=== PATIENT | male | born 1940 | race Caucasian/White ===

== ENCOUNTER 2017-10-26 11:15 | Emergency (ER) | payer OTHER ==
[~2017-10-26] VITALS: Ht 172.7 cm; Wt 78.9 kg
[2017-10-26 11:19] VITALS: Ht 172.7 cm; Wt 78.9 kg
--- NOTE | 2017-10-26 12:17 | DIAGNOSTIC IMAGING REPORT ---
L SHOULDER MIN 2 VIEWS ROUTINE CLINICAL HISTORY: L biceps tendon rupture pain COMPARISON: None. DISCUSSION: The bones and joint spaces appear intact. There is no evidence of fracture, dislocation or bony disease. Minimal degenerative change of the acromioclavicular joint. No abnormal soft tissue calcifications. IMPRESSION: Minimal degenerative change. No acute process. The above report was generated using voice recognition software. It may contain grammatical, syntax or spelling errors. Electronically signed by: Tam Esposito M.D. 10/26/2017 12:16 PM Dictated Date/Time: 10/26/2017 12:15 PM
[2017-10-26 12:53] LABS: PROTHROMBIN TIME (PATIENT) 39.2 SECONDS (9.0-12.0)
[2017-10-26 12:55] LABS: INR 3.8 (0.9-1.1)
[2017-10-26] MEDS ORDERED: PRAV40TA2 PO (13:19)
[2017-10-26] MEDS ORDERED: DIGO0.2519 PO (13:19)
[2017-10-26] MEDS ORDERED: WARF1TAB PO (13:19)
[2017-10-26] MEDS ORDERED: MULT-190 PO (13:19)
[2017-10-26] MEDS ORDERED: WARF7.5T PO (13:19)
[2017-10-26] MEDS ORDERED: LISI10TA PO (13:19)
--- NOTE | 2017-10-26 13:58 | EMERGENCY ROOM VISIT NOTE ---
ED Visit Note First contact with patient: 11:25 Patient was seen by our PA/[employer] DISPOSAL MANAGER. I was involved in the patient's care and did evaluate the patient myself. I was involved in the care throughout the ER stay. The patient has a biceps tendon rupture clinically. He has bruising because of his Coumadin use. He will be seeing orthopedics. We will call to try and make arrangements for him.
[2017-10-26 14:04] VITALS: BP 114/73; PULSE 78; TEMP 36.6; O2SAT 96
--- NOTE | 2017-10-26 15:37 | EMERGENCY ROOM VISIT NOTE ---
History First contact with patient: 11:25 Chief Complaint: ARM PAIN Stated Complaint: BRUISING ON LEFT ARM History of Present Illness The patient is a 76 year old male who presents to the Emergency Room with complaints of bruising and swelling of his left upper arm. The patient reports that he initially injured the arm 8 days ago while attempting to pull up a garage door when he felt something pull in the arm. Shortly thereafter, he reported swelling of the arm. 2 days ago, he was trying to pull an oxygen tank across the back of a car seat and felt something pop in the arm. He then started to notice bruising that has progressively worsened. The patient is on Coumadin for history of artificial heart valve. His last INR check was over one month ago. He does take high doses of Coumadin. The patient denies any prior history of left rotator cuff injuries or biceps tendon injuries. He rates his discomfort a 6 out of 10. The patient is [id number]. Review of Systems HEENT: Denies dizziness, visual problems, hearing loss, tinnitus. Denies difficulty swallowing or oral lesions. PULMONARY: Denies cough, shortness of breath, sputum production or hemoptysis. CARDIOVASCULAR: Denies chest pain, palpitations, dyspnea on exertion, orthopnea or peripheral edema. GASTROINTESTINAL: Denies diarrhea, constipation, nausea, vomiting, or abdominal pain. GENITOURINARY: Denies dysuria, frequency, urgency or nocturia. NEUROLOGIC: Denies history of epilepsy, CVA, TIA or chronic headaches. MUSCULOSKELETAL: Denies history of joint tenderness/swelling. SKIN: Denies rashes or lesions. PSYCHIATRIC: Denies history of depression or mental illness. ENDOCRINE: Denies history of diabetes or thyroid disorders. Past Medical/Surgical History Medical Problems: (1) H/O heart valve stenosis Family History Patient reports no known family medical history. Social History Smoking Status: Never Smoker Marital Status: Housing Status: lives with significant other Occupation Status: retired Current/Historical Medications Scheduled Digoxin (Digox), 250 MCG PO DAILY Lisinopril (Prinivil), 10 MG PO DAILY Ocuvite Preservision (Ocuvite Preservision), 1 TAB PO DAILY Pravastatin Sodium (Pravastatin Sodium), 40 MG PO DAILY Warfarin Sodium (Coumadin), 0.5 MG PO DAILY Warfarin Sodium (Coumadin), 7.5 MG PO DAILY Physical Exam Vital Signs Date Time Temp Pulse Resp B/P (MAP) Pulse Ox O2 Delivery O2 Flow Rate FiO2 10/26/17 14:04 36.6 78 18 114/73 96 10/26/17 13:50 78 18 114/73 96 Room Air 10/26/17 11:51 36.6 98 18 121/72 97 Room Air 10/26/17 11:19 36.6 101 18 121/75 97 Room Air Physical Exam CONSTITUTIONAL: Healthy and well nourished. Alert and oriented X 3 with positive affect. Patient does not appear in any acute distress. HEENT: Normocephalic, atraumatic. Pupils equal, round and reactive. NECK: Full active range of motion without discomfort. MUSCULOSKELETAL: Examination shows notable ecchymosis and edema of the left upper arm. The patient has a visible and palpable bulge of the biceps muscle. He also has mild tenderness through the bicipital groove. He otherwise has full passive range of motion without discomfort, and reasonably full active range of motion without discomfort. No focal tenderness through the triceps musculature. No palpable softness or other abnormalities within the antecubital space. Pronation and supination does not cause any discomfort. Distal pulses are intact. INTEGUMENTARY: No rash or other significant dermatologic conditions noted. NEUROLOGIC: Left deltoid sensation, and left hand and fingers are sensory intact. Medical Decision & Procedures ER Provider Diagnostic Interpretation: My interpretation of left shoulder x-rays does not show any avulsion fractures or dislocation. Radiologist report is as follows: L SHOULDER MIN 2 VIEWS ROUTINE CLINICAL HISTORY: L biceps tendon rupture pain COMPARISON: None. DISCUSSION: The bones and joint spaces appear intact. There is no evidence of fracture, dislocation or bony disease. Minimal degenerative change of the acromioclavicular joint. No abnormal soft tissue calcifications. IMPRESSION: Minimal degenerative change. No acute process. Laboratory Results Test 10/26/17 12:20 Prothrombin Time 39.2 SECONDS (9.0-12.0) Prothromb Time International Ratio 3.8 (0.9-1.1) ED Course Patient history and physical exam were performed. Nurse's notes were reviewed. Vital signs were reviewed and were normal. The patient refused any analgesics while in the emergency department. X-rays of the left shoulder were normal. The patient and were advised that clinical exam is most consistent with a long head biceps tendon rupture. I did suggest that the patient follow-up with [facility] for further reevaluation. The patient also has not had his INR checked within the past month. His INR today was 3.8. I did encourage the patient to call his Coumadin clinic, and hold his Coumadin dosing for tonight. The patient and had a lot of questions regarding the need to see an orthopedic surgeon. I did explain that often times management is nonoperative, however explain that although he does have one intact biceps tendon, certainly he would need to be careful in the future of any further injury. I also extensively explained why the patient had bruising, swelling and discomfort because of the bleeding in the upper arm. The patient was also seen and examined by Dr. Talbot, ED attending physician, who also suggested orthopedic follow-up. The wanted us to call to see if the patient could be seen today. Although unlikely, I did ask our Rn Team Leader to call the office for an appointment. They are unable to see him today, but can be seen tomorrow at 8:[address] Moran. The patient was encouraged to alternate ice and heat to the arm, and take Tylenol if needed for additional pain relief. Both the patient and were happy with plan of care, and the patient denied any significant discomfort at the time of discharge. He refused a sling. Medical Decision Medication Reconcilliation Current Medication List: was personally reviewed by me Blood Pressure Screening Patient's blood pressure: Normal blood pressure Impression Primary Impression: Rupture of left long head biceps tendon Additional Impression: Supratherapeutic INR Departure Information Dispostion Home / Self-Care Referrals Giacomo Moran M.D. Forms HOME CARE DOCUMENTATION FORM, IMPORTANT VISIT INFORMATION Patient Instructions My [facility] Additional Instructions Follow-up with [facility] for further reevaluation and management. You have an appointment scheduled for tomorrow morning at 8:[address] Moran. Alternate ice and heat to the arm. Avoid any heavy lifting. Tylenol 1000 mg every 6-8 hours as needed for pain. Your INR was elevated today at 3.8. Suggest holding your Coumadin for tonight. Call your Coumadin clinic to see if they want you to hold your Coumadin for an additional night, or for other change in dosing. Problem Qualifiers Primary Impression: Rupture of left long head biceps tendon Encounter type: initial encounter Qualified Codes: S46.112A - Strain of muscle, fascia and tendon of long head of biceps, left arm, initial encounter
== END 2017-10-26 14:05 | disposition home or self-care (01) ==
LOC: C.EDB 11:17 → C.EDD 14:05
DX: S46.112A Strain of muscle, fascia and tendon of long head of biceps, left arm, initial encounter (principal); X50.9XXA Other and unspecified overexertion or strenuous movements or postures, initial encounter; R79.1 Abnormal coagulation profile; Z95.2 Presence of prosthetic heart valve; Z79.01 Long term (current) use of anticoagulants

== ENCOUNTER 2023-07-03 20:46 | Inpatient (IN) ==
[2023-07-03 21:47] LABS: Hematocrit (blood only) 39.4 % (42.0-52.0); Hemoglobin 13.3 g/dl (14.0-18.0); Mean Corpuscular Hemoglobin 31.4 pg (25.0-34.0); Mean Corpuscular Hgb Conc 33.8 g/dL (32.0-36.0); Mean Corpuscular Volume 92.9 fL (80.0-100.0); Mean Platelet Volume 12.5 fL (9.4-12.4); Platelet Count 125 K/uL (130-400); RDW Coefficient of Variation 14.3 % (11.5-14.5); RDW Standard Deviation 48.8 fL (36.4-46.3); Red Blood Count 4.24 M/uL (4.70-6.10); White Blood Count 21.78 K/ul (4.8-10.8)
[2023-07-03] MEDS ORDERED: SODIUM CHLORIDE 0.9% 2,000 ML IV ONE (22:02)
[2023-07-03] MEDS ORDERED: PIPERACILLIN/TAZOBACTAM 4.5 GM/120 ML BAG IV ONE (22:09)
[2023-07-03 22:11] LABS: Alanine Aminotransferase 25 U/L (7-52); Albumin Globulin Ratio 1.2 (0.9-2); Albumin Level 3.7 gm/dl (3.4-5.0); Alkaline Phosphatase 86 U/L (34-104); Anion Gap 10 (3-11); Aspartate Aminotransferase 28 U/L (13-39); BUN Creatinine Ratio 13.5 (10-20); Blood Urea Nitrogen 25 mg/dl (6-23); Calcium 8.2 mg/dl (8.6-10.3); Carbon Dioxide 21 mmol/L (21-32); Chloride 102 mmol/L (98-107); Est GFR (African American) 37.9 ml/min; Est GFR (Non-African American) 32.7 ml/min; Globulin 3.1 gm/dl (2.5-4.0); Glucose 120 mg/dl (70-99(Fasting)); Potassium 4.2 mmol/L (3.5-5.1); Sodium 133 mmol/L (136-145); Total Protein 6.8 gm/dl (6.0-8.3)
[2023-07-03 22:20] LABS: INR 1.9 (0.9-1.1); Prothrombin Time 19.6 Seconds (9.0-12.0)
[2023-07-03 22:21] LABS: Appearance Urine Turbid (Clear); Bacteria Urine Automated Negative (Negative); Bilirubin Urine Negative (Negative); Blood Urine 3+ (Negative); Color Urine Dark Yellow; Epithelial Cell Urine Auto 20-30 /lpf (0-5); Glucose Urine UA Negative (Negative); Ketones Urine Negative (Negative); Leukocyte Esterase Urine 3+ (Negative); Nitrite Urine Positive (Negative); Protein Urine 3+ (Negative); Specific Gravity Urine 1.014 (1.000-1.030); Urobilinogen Urine Negative (Negative); WBC Urine Automated >30 /hpf (0-5)
[2023-07-03 22:22] LABS: Basophils # (auto) 0.04 K/uL (0.00-0.20); Basophils % (auto) 0.2 %; Eosinophils # (auto) 0.04 K/uL (0.00-0.50); Eosinophils % (auto) 0.2 %; Immature Granulocytes # (auto) 0.17 K/uL (0.01-0.20); Immature Granulocytes % (auto) 0.8 %; Lymphocytes # (auto) 0.83 K/uL (1.20-3.40); Lymphocytes % (auto) 3.8 %; Monocytes # (auto) 1.04 K/uL (0.11-0.59); Monocytes % (auto) 4.8 %; Neutrophils # (auto) 19.66 K/uL (1.40-6.50); Neutrophils % (auto) 90.2 %
[2023-07-03] MEDS ORDERED: LACTATED RINGER'S 1,000 ML IV ONE (23:36)
--- NOTE | 2023-07-03 23:36 | Emergency Department Note ---
Impression & Plan Acute UTI, Sepsis, THIAGO (acute kidney injury), Elevated troponin ED Provider Note Provider: Hamilton Alonso MD DATE OF SERVICE: 07/03/2023 CHIEF COMPLAINT: Urinary discomfort HISTORY OF PRESENT ILLNESS: Patient is a 82-year-old gentleman history of CKD, GERD, CVA resulting with some hemiparesis, and aortic mechanical valve replacement on Coumadin presenting here via ambulance from his home today. Patient states he is significant pressure in his lower abdomen and feels like he cannot pee. Reports a history of urine infection. Denies any new neurological deficit with chronic weakness of the left arm and leg. Patient is feeling improved after Cox placement here however and denies other significant abdominal pain or flank pain is new. Denies chest pain. Denies significant cough or cold symptoms. No falls reported. Later called to to get additional history. Patient evidently with some dark urine starting yesterday no reported fever or chills at home. Decreased urine output and has not eaten as much today is normal. Patient's difficulty transporting him to get his limitations of mobility from his prior stroke and requested antibiotic be prescribed. He took 1 tablet of this this evening but given increased lower abdominal pain that began she sent here for ev aluation. Did have some diarrhea earlier. PAST MEDICAL HISTORY: As noted above MEDICATIONS: Reviewed home medications includes warfarin digoxin. Did not have his evening warfarin tonight. SOCIAL HISTORY: Lives at home with and white syriac cat PHYSICAL EXAM: GENERAL: alert and oriented in no acute distress on stretcher, hard of hearing, not the best historian Head: normocephalic and atraumatic EYES: No injection, discharge or icterus. NECK: Trachea midline. Supple. ENT: Mucous membranes pink and moist. Pharynx without erythema or exudate. LUNGS: Airway patent. No retractions. Breath sounds clear with good air entry bilaterally. HEART: Regular rate and rhythm. No chest wall tenderness ABDOMEN: Soft and non-tender, without guarding or rebound. SKIN: Acyanotic, warm, dry, without rashes EXTREMITIES: Without swelling, tenderness or deformity NEUROLOGICAL: No focal deficits. No aphasia. No facial droop or slurred speech. Normal strength and tone in the extremities. Sensation to gross touch normal. Ambulatory. EK bpm sinus tachycardia. No PVC or PAC. No acute ST segment elevation with some anterior T wave flattening noted. Slight depression in aVL. QTc 453. CONTINUOUS CARDIAC MONITORING: was ordered and showed a heart rate of 100s-120s bpm in sinus tachycardia Patient's laboratory studies and imaging reviewed. Differential includes Infection, dehydration, metabolic abnormality, hypo/hyperglycemia, electrolyte disturbance, anemia, hypoxia, cardiac sources, intracerebral event, toxicologic, neurologic, as well as other pathologies. IMPRESSION/MEDICAL DECISION MAKING: Patient with lower abdominal discomfort. Improved after Cox placement but not a significant amount of urine drained and does not seem like an acute retention. Additional history from states she did give him nasal and had 1 dose of Augmentin earlier. No falls or trauma reported. Denies any diarrhea here other abdominal pain after Cox placement. Darkened urine and urinalysis appears grossly positive. Will cover with Zosyn. IV fluid hydration 3 L ordered for resuscitation. Is somewhat tachycardic. INR 1.9. Did not have his evening dose of warfarin. CT abdomen pelvis completed given his discomfort earlier and significant cytosis concerning for sepsis to exclude abscess or evidence of kidney stone. Not noted per reports. Lactate only mildly low at 2.1. Slight THIAGO with creatinine 1.85. Likely little bit related to the sepsis picture. Blood cultures are pending and were completed before the administration of broad-spectrum Zosyn. Will require further care here at the hospital and was updated via phone. Patient in agreement. Resting comfortably at this time. Reassessed at midnight with improvement of his heart rate to around 100, good capillary perfusion, no significant breathing, and a benign abdomen with still some darkish yellow urine draining in the Cox. Mild troponin elevation. Will trend. Hospitalist contacted DIAGNOSIS: Acute UTI, sepsis, THIAGO, elevated troponin DISPOSITION: Hospitalist will evaluate Patient was agreeable with this plan. Critical Care I have personally spent 35 minutes of critical care time in the direct management of this patient. This includes bedside care, interpretation of diagnostic studies, and testing, discussion with consultants, patient, and family member (), and other required patient management activities. These 35 minutes is in excess of all separately billable procedures. Past Med/Surg History Medical History Benign prostatic hyperplasia with urinary obstruction Chronic kidney disease, stage 3 (moderate) GERD (gastroesophageal reflux disease) H/O: CVA (cerebrovascular accident) (01/2019) History of subarachnoid hemorrhage (01/2019) Hyperlipidemia Hypertension Left hemiparesis RLS (restless legs syndrome) Rupture of left long head biceps tendon Surgical History H/O mechanical aortic valve replacement (1984) S/P tonsillectomy Family History Brother Myocardial infarction Denies family history of Ovarian cancer Prostate cancer Breast cancer Colorectal cancer Social History Smoking Status: Former smoker Tobacco Type: Cigarettes Age Quit Using Tobacco: 30; Do You Dip or Chew Tobacco: No; Hx Alcohol Use: No Hx Substance Use: No Preferred Language: Nepali Visual Impairment: No Limitations Hearing Ability: Use of Hearing Aid Beliefs That Will Affect Care: None marital status: Current Living Situation: Spouse current occupational status: retired Feels Safe at Home: Yes Diet: regular Diet Comment: regular caffeine: Yes during the past year weight has: remained stable Dental Care, Regularly: No Physical Activity Frequency: Other Physical Activity Frequency Comment: PHYSICAL THERAPY DUE TO STROKE Seatbelt Use: always Sunscreen Use: Yes Allergies Allergies Allergy/AdvReac Type Severity Reaction Status Date / Time No Known Allergies Allergy Unverified 06/21/23 12:34 Home Meds Home Medications Medication Instructions Recorded Confirmed vit C 250 mg-vit E 90 mg-zinc 40 1 tab PO BID 02/07/19 06/21/23 mg-copper 1 [id number] capsule (PreserVision AREDS-2) Previous Rx's Medication Instructions Recorded rosuvastatin 40 mg tablet 40 mg PO DAILY #90 tabs 06/11/22 docusate sodium 100 mg capsule 100 mg PO BID #180 caps 08/20/22 folic acid 1 mg tablet 1 mg PO DAILY #90 tabs 02/15/23 warfarin 5 mg tablet 5 mg PO DAILY #90 tabs 03/09/23 digoxin 125 mcg (0.125 mg) tablet 125 mcg PO DAILY #90 tabs 06/07/23 tamsulosin 0.4 mg capsule 0.4 mg PO .QHS #90 caps 06/22/23 lisinopril 2.5 mg tablet 2.5 mg PO DAILY #90 tabs 06/29/23 amoxicillin 875 mg-potassium 1 tab PO BID #8 tabs 07/03/23 clavulanate 125 mg tablet Results & Data (ED) Vital Signs Vital Signs - 24 hr 07/03/23 20:50 07/03/23 22:15 07/03/23 22:54 Temperature 38 C H Temperature Source Oral Pulse Rate 117 H 107 H Pulse Rate [Apical] 103 H Pulse Rate from SpO2 Sensor Pulse Rhythm [Apical] Regular Pulse Strength [Apical] Normal Respiratory Rate 16 16 Respiratory Effort / Characteristics Non-Labored Spontaneous Non-Labored Spontaneous Respiratory Depth Normal Normal Respiratory Pattern Regular Blood Pressure 173/72 H Blood Pressure [Right Arm] 115/64 Blood Pressure Mean 105 Blood Pressure Mean [Right Arm] 81 Pulse Oximetry 95 98 Oxygen Delivery Method Room Air Room Air Sepsis Recent Fever Within 48 Hours Yes Sepsis New/Unexplained Change in Mental Status No Sepsis Action Taken by Nursing No Action Required 07/03/23 22:12 07/03/23 22:20 07/03/23 22:49 Temperature Temperature Source Pulse Rate 109 H 112 H 108 H Pulse Rate [Apical] Pulse Rate from SpO2 Sensor 109 H 112 H 107 H Pulse Rhythm [Apical] Pulse Strength [Apical] Respiratory Rate 23 26 H 24 Respiratory Effort / Characteristics Respiratory Depth Respiratory Pattern Blood Pressure Blood Pressure [Right Arm] Blood Pressure Mean Blood Pressure Mean [Right Arm] Pulse Oximetry 95 95 93 Oxygen Delivery Method Sepsis Recent Fever Within 48 Hours Sepsis New/Unexplained Change in Mental Status Sepsis Action Taken by Nursing 07/03/23 22:50 07/03/23 22:51 07/03/23 22:51 Temperature Temperature Source Pulse Rate 114 H 115 H Pulse Rate [Apical] Pulse Rate from SpO2 Sensor 112 H 113 H Pulse Rhythm [Apical] Pulse Strength [Apical] Respiratory Rate 22 28 H Respiratory Effort / Characteristics Respiratory Depth Respiratory Pattern Blood Pressure 105/83 Blood Pressure [Right Arm] Blood Pressure Mean 87 Blood Pressure Mean [Right Arm] Pulse Oximetry 85 L 95 Oxygen Delivery Method Sepsis Recent Fever Within 48 Hours Sepsis New/Unexplained Change in Mental Status Sepsis Action Taken by Nursing 07/03/23 23:00 07/03/23 23:00 07/03/23 23:10 Temperature Temperature Source Pulse Rate 104 H 108 H Pulse Rate [Apical] Pulse Rate from SpO2 Sensor 104 H 101 H Pulse Rhythm [Apical] Pulse Strength [Apical] Respiratory Rate 34 H 97 H Respiratory Effort / Characteristics Respiratory Depth Respiratory Pattern Blood Pressure 132/71 Blood Pressure [Right Arm] Blood Pressure Mean 97 Blood Pressure Mean [Right Arm] Pulse Oximetry 95 84 L Oxygen Delivery Method Sepsis Recent Fever Within 48 Hours Sepsis New/Unexplained Change in Mental Status Sepsis Action Taken by Nursing 07/03/23 23:20 07/03/23 23:30 07/03/23 23:30 Temperature Temperature Source Pulse Rate 105 H 102 H Pulse Rate [Apical] Pulse Rate from SpO2 Sensor 105 H 102 H Pulse Rhythm [Apical] Pulse Strength [Apical] Respiratory Rate 25 H 30 H Respiratory Effort / Characteristics Respiratory Depth Respiratory Pattern Blood Pressure 115/64 Blood Pressure [Right Arm] Blood Pressure Mean 89 Blood Pressure Mean [Right Arm] Pulse Oximetry 96 94 Oxygen Delivery Method Sepsis Recent Fever Within 48 Hours Sepsis New/Unexplained Change in Mental Status Sepsis Action Taken by Nursing 07/03/23 23:40 07/03/23 23:50 07/04/23 00:00 Temperature Temperature Source Pulse Rate 104 H 101 H Pulse Rate [Apical] Pulse Rate from SpO2 Sensor 104 H 102 H Pulse Rhythm [Apical] Pulse Strength [Apical] Respiratory Rate 33 H 31 H Respiratory Effort / Characteristics Respiratory Depth Respiratory Pattern Blood Pressure 106/63 Blood Pressure [Right Arm] Blood Pressure Mean 75 Blood Pressure Mean [Right Arm] Pulse Oximetry 95 94 Oxygen Delivery Method Sepsis Recent Fever Within 48 Hours Sepsis New/Unexplained Change in Mental Status Sepsis Action Taken by Nursing 07/04/23 00:00 07/04/23 00:10 07/04/23 00:20 Temperature Temperature Source Pulse Rate 101 H 104 H 102 H Pulse Rate [Apical] Pulse Rate from SpO2 Sensor 99 H 104 H 101 H Pulse Rhythm [Apical] Pulse Strength [Apical] Respiratory Rate 30 H 30 H 31 H Respiratory Effort / Characteristics Respiratory Depth Respiratory Pattern Blood Pressure Blood Pressure [Right Arm] Blood Pressure Mean Blood Pressure Mean [Right Arm] Pulse Oximetry 97 94 96 Oxygen Delivery Method Sepsis Recent Fever Within 48 Hours Sepsis New/Unexplained Change in Mental Status Sepsis Action Taken by Nursing 07/04/23 00:30 07/04/23 00:30 07/04/23 00:40 Temperature Temperature Source Pulse Rate 101 H 102 H Pulse Rate [Apical] Pulse Rate from SpO2 Sensor 101 H 101 H Pulse Rhythm [Apical] Pulse Strength [Apical] Respiratory Rate 33 H 28 H Respiratory Effort / Characteristics Respiratory Depth Respiratory Pattern Blood Pressure 123/71 Blood Pressure [Right Arm] Blood Pressure Mean 102 Blood Pressure Mean [Right Arm] Pulse Oximetry 95 97 Oxygen Delivery Method Sepsis Recent Fever Within 48 Hours Sepsis New/Unexplained Change in Mental Status Sepsis Action Taken by Nursing 07/04/23 00:50 07/04/23 01:00 07/04/23 01:00 Temperature Temperature Source Pulse Rate 102 H 105 H Pulse Rate [Apical] Pulse Rate from SpO2 Sensor 103 H 105 H Pulse Rhythm [Apical] Pulse Strength [Apical] Respiratory Rate 32 H 22 Respiratory Effort / Characteristics Respiratory Depth Respiratory Pattern Blood Pressure 110/89 Blood Pressure [Right Arm] Blood Pressure Mean 101 Blood Pressure Mean [Right Arm] Pulse Oximetry 97 94 Oxygen Delivery Method Sepsis Recent Fever Within 48 Hours Sepsis New/Unexplained Change in Mental Status Sepsis Action Taken by Nursing 07/04/23 01:10 07/04/23 01:14 07/04/23 01:14 Temperature Temperature Source Pulse Rate 106 H 114 H Pulse Rate [Apical] Pulse Rate from SpO2 Sensor 105 H 114 H Pulse Rhythm [Apical] Pulse Strength [Apical] Respiratory Rate 29 H 24 Respiratory Effort / Characteristics Respiratory Depth Respiratory Pattern Blood Pressure 135/108 H Blood Pressure [Right Arm] Blood Pressure Mean 114 Blood Pressure Mean [Right Arm] Pulse Oximetry 96 97 Oxygen Delivery Method Sepsis Recent Fever Within 48 Hours Sepsis New/Unexplained Change in Mental Status Sepsis Action Taken by Nursing Laboratory Data 07/03/23 21:20 07/03/23 21:20 Lab Results 07/03/23 07/03/23 07/03/23 Range/Units 21:20 21:20 21:20 WBC 21.78 H (4.8-10.8) K/ul RBC 4.24 L (4.70-6.10) M/uL Hgb 13.3 L (14.0-18.0) g/dl Hct 39.4 L (42.0-52.0) % MCV 92.9 (80.0-100.0) fL MCH 31.4 (25.0-34.0) pg MCHC 33.8 (32.0-36.0) g/dL RDW Std Deviation 48.8 H (36.4-46.3) fL RDW Coeff of Ayse 14.3 (11.5-14.5) % Plt Count 125 L (130-400) K/uL MPV 12.5 H (9.4-12.4) fL Immature Gran % (Auto) 0.8 % Neut % (Auto) 90.2 % Lymph % (Auto) 3.8 % [place] % (Auto) 4.8 % Eos % (Auto) 0.2 % Baso % (Auto) 0.2 % Neut # (Auto) 19.66 H (1.40-6.50) K/uL Lymph # (Auto) 0.83 L (1.20-3.40) K/uL [place] # (Auto) 1.04 H (0.11-0.59) K/uL Eos # (Auto) 0.04 (0.00-0.50) K/uL Baso # (Auto) 0.04 (0.00-0.20) K/uL Immature Gran # (Auto) 0.17 (0.01-0.20) K/uL PT 19.6 H (9.0-12.0) Seconds INR 1.9 H (0.9-1.1) Sodium 133 L (136-145) mmol/L Potassium 4.2 (3.5-5.1) mmol/L Chloride 102 (98-107) mmol/L Carbon Dioxide 21 (21-32) mmol/L Anion Gap 10 (3-11) BUN 25 H (6-23) mg/dl Creatinine 1.85 H (0.6-1.4) mg/dl Est Cr Clr Drug Dosing Not Reportable Est GFR ( Amer) 37.9 ml/min Est GFR (Non-Af Amer) 32.7 ml/min BUN/Creatinine Ratio 13.5 (10-20) Glucose 120 H (70-99(Fasting)) mg/dl Lactate (0.4-2.0) mmol/L Calcium 8.2 L (8.6-10.3) mg/dl Total Bilirubin 1.0 (0.2-1.0) mg/dl AST 28 (13-39) U/L ALT 25 (7-52) U/L Alkaline Phosphatase 86 (34-104) U/L Troponin I High Sens (0-20) pg/ml Total Protein 6.8 (6.0-8.3) gm/dl Albumin 3.7 (3.4-5.0) gm/dl Globulin 3.1 (2.5-4.0) gm/dl Albumin/Globulin Ratio 1.2 (0.9-2) Urine Color Urine Appearance (Clear) Urine pH (4.5-7.5) Ur Specific [place] (1.000-1.030) Urine Protein (Negative) Urine Glucose (UA) (Negative) Urine Ketones (Negative) Urine Blood (Negative) Urine Nitrite (Negative) Urine Bilirubin (Negative) Urine Urobilinogen (Negative) Ur Leukocyte Esterase (Negative) Urine WBC (Auto) (0-5) /hpf Urine RBC (Auto) (0-4) /hpf U Hyaline Cast (Auto) (0-5) /lpf U Epithel Cells (Auto) (0-5) /lpf Urine Bacteria (Auto) (Negative) Urine Yeast Digoxin (0.8-2.0) ng/ml 07/03/23 07/03/23 07/03/23 Range/Units 21:20 21:20 22:15 WBC (4.8-10.8) K/ul RBC (4.70-6.10) M/uL Hgb (14.0-18.0) g/dl Hct (42.0-52.0) % MCV (80.0-100.0) fL MCH (25.0-34.0) pg MCHC (32.0-36.0) g/dL RDW Std Deviation (36.4-46.3) fL RDW Coeff of Ayse (11.5-14.5) % Plt Count (130-400) K/uL MPV (9.4-12.4) fL Immature Gran % (Auto) % Neut % (Auto) % Lymph % (Auto) % [place] % (Auto) % Eos % (Auto) % Baso % (Auto) % Neut # (Auto) (1.40-6.50) K/uL Lymph # (Auto) (1.20-3.40) K/uL [place] # (Auto) (0.11-0.59) K/uL Eos # (Auto) (0.00-0.50) K/uL Baso # (Auto) (0.00-0.20) K/uL Immature Gran # (Auto) (0.01-0.20) K/uL PT (9.0-12.0) Seconds INR (0.9-1.1) Sodium (136-145) mmol/L Potassium (3.5-5.1) mmol/L Chloride (98-107) mmol/L Carbon Dioxide (21-32) mmol/L Anion Gap (3-11) BUN (6-23) mg/dl Creatinine (0.6-1.4) mg/dl Est Cr Clr Drug Dosing Est GFR ( Amer) ml/min Est GFR (Non-Af Amer) ml/min BUN/Creatinine Ratio (10-20) Glucose (70-99(Fasting)) mg/dl Lactate 2.1 H* (0.4-2.0) mmol/L Calcium (8.6-10.3) mg/dl Total Bilirubin (0.2-1.0) mg/dl AST (13-39) U/L ALT (7-52) U/L Alkaline Phosphatase (34-104) U/L Troponin I High Sens 74.1 H* (0-20) pg/ml Total Protein (6.0-8.3) gm/dl Albumin (3.4-5.0) gm/dl Globulin (2.5-4.0) gm/dl Albumin/Globulin Ratio (0.9-2) Urine Color Urine Appearance (Clear) Urine pH (4.5-7.5) Ur Specific [place] (1.000-1.030) Urine Protein (Negative) Urine Glucose (UA) (Negative) Urine Ketones (Negative) Urine Blood (Negative) Urine Nitrite (Negative) Urine Bilirubin (Negative) Urine Urobilinogen (Negative) Ur Leukocyte Esterase (Negative) Urine WBC (Auto) (0-5) /hpf Urine RBC (Auto) (0-4) /hpf U Hyaline Cast (Auto) (0-5) /lpf U Epithel Cells (Auto) (0-5) /lpf Urine Bacteria (Auto) (Negative) Urine Yeast Digoxin 0.7 L (0.8-2.0) ng/ml 07/03/23 07/04/23 Range/Units Unknown 01:06 WBC (4.8-10.8) K/ul RBC (4.70-6.10) M/uL Hgb (14.0-18.0) g/dl Hct (42.0-52.0) % MCV (80.0-100.0) fL MCH (25.0-34.0) pg MCHC (32.0-36.0) g/dL RDW Std Deviation (36.4-46.3) fL RDW Coeff of Ayse (11.5-14.5) % Plt Count (130-400) K/uL MPV (9.4-12.4) fL Immature Gran % (Auto) % Neut % (Auto) % Lymph % (Auto) % [place] % (Auto) % Eos % (Auto) % Baso % (Auto) % Neut # (Auto) (1.40-6.50) K/uL Lymph # (Auto) (1.20-3.40) K/uL [place] # (Auto) (0.11-0.59) K/uL Eos # (Auto) (0.00-0.50) K/uL Baso # (Auto) (0.00-0.20) K/uL Immature Gran # (Auto) (0.01-0.20) K/uL PT (9.0-12.0) Seconds INR (0.9-1.1) Sodium (136-145) mmol/L Potassium (3.5-5.1) mmol/L Chloride (98-107) mmol/L Carbon Dioxide (21-32) mmol/L Anion Gap (3-11) BUN (6-23) mg/dl Creatinine (0.6-1.4) mg/dl Est Cr Clr Drug Dosing Est GFR ( Amer) ml/min Est GFR (Non-Af Amer) ml/min BUN/Creatinine Ratio (10-20) Glucose (70-99(Fasting)) mg/dl Lactate 1.8 (0.4-2.0) mmol/L Calcium (8.6-10.3) mg/dl Total Bilirubin (0.2-1.0) mg/dl AST (13-39) U/L ALT (7-52) U/L Alkaline Phosphatase (34-104) U/L Troponin I High Sens (0-20) pg/ml Total Protein (6.0-8.3) gm/dl Albumin (3.4-5.0) gm/dl Globulin (2.5-4.0) gm/dl Albumin/Globulin Ratio (0.9-2) Urine Color Dark Yellow Urine Appearance Turbid A (Clear) Urine pH 6.0 (4.5-7.5) Ur Specific [place] 1.014 (1.000-1.030) Urine Protein 3+ H (Negative) Urine Glucose (UA) Negative (Negative) Urine Ketones Negative (Negative) Urine Blood 3+ H (Negative) Urine Nitrite Positive A (Negative) Urine Bilirubin Negative (Negative) Urine Urobilinogen Negative (Negative) Ur Leukocyte Esterase 3+ H (Negative) Urine WBC (Auto) >30 H (0-5) /hpf Urine RBC (Auto) 10-30 H (0-4) /hpf U Hyaline Cast (Auto) 1-5 (0-5) /lpf U Epithel Cells (Auto) 20-30 H (0-5) /lpf Urine Bacteria (Auto) Negative (Negative) Urine Yeast Not Reportable Digoxin (0.8-2.0) ng/ml Administered Medications Discontinued Medications Acetaminophen (Acetaminophen 325 Mg Tab) 650 mg PO NOW STA Stop: 07/03/23 23:39 Last Admin: 07/04/23 01:00 Dose: 650 mg Documented By: ALB Sodium Chloride (Nss 1000ml) 2,000 mls @ 999 mls/hr IV .Q2H1M ONE Stop: 07/04/23 00:02 Last Infusion: 07/04/23 01:20 Dose: 0 mls/hr Documented By: Admin: 07/03/23 22:30 Dose: 999 mls/hr Documented By: ALB Piperacillin Sod/Tazobactam Sod (Zosyn) 4.5 gm in 120 mls @ 240 mls/hr IV NOW ONE Stop: 07/03/23 22:38 Last Infusion: 07/03/23 23:40 Dose: 0 mls/hr Documented By: Admin: 07/03/23 23:05 Dose: 240 mls/hr Documented By: ALB Lactated Ringer's (Lr) 1,000 mls @ 999 mls/hr IV .Q1H1M ONE Stop: 07/04/23 00:36 Last Admin: 07/04/23 00:50 Dose: 999 mls/hr Documented By: ALB Imaging Data Radiologist's Impression: Abdomen/Pelvis CT 07/03/23 22:14 Exam(s): CT ABDOMEN + PELVIS Without Contrast EXAM: CT Abdomen and Pelvis Without Intravenous Contrast CLINICAL HISTORY: Reason for exam: retention/abd pain, sepsis, ?uti. TECHNIQUE: Axial computed tomography images of the abdomen and pelvis without intravenous contrast. CTDI is 28.33 mGy and DLP is 1425 mGy-cm. Automated exposure control was utilized for the study. A dose lowering technique was utilized adhering to the principles of ALARA. COMPARISON: No relevant prior studies available. FINDINGS: Lung bases: Unremarkable. No mass. No consolidation. Heart: Cardiomegaly. Mediastinum: Small hiatal hernia. ABDOMEN: Liver: Unremarkable. Gallbladder and bile ducts: Cholelithiasis. No ductal dilation. Pancreas: Unremarkable. No ductal dilation. Spleen: Unremarkable. No splenomegaly. Adrenals: Unremarkable. No mass. Kidneys and ureters: No hydronephrosis. There is a 5 mm RIGHT lower pole calcification, concerning for a renal vascular calcification. Stomach and bowel: Diverticulosis, without acute diverticulitis. No small bowel obstruction. No free intraperitoneal air. PELVIS: Appendix: Normal appendix. Bladder: Wall thickening of the urinary bladder with indwelling Cox catheter. Findings are concerning for UTI. There is also a small focus of air in the anterior urinary bladder wall. No stones. Reproductive: Unremarkable as visualized. ABDOMEN and PELVIS: Intraperitoneal space: Unremarkable. No free air. No significant fluid collection. Bones/joints: Degenerative changes of the spine. No acute fracture. No dislocation. Soft tissues: Unremarkable. Vasculature: Atherosclerotic changes of the aorta. No abdominal aortic aneurysm. Lymph nodes: Unremarkable. No enlarged lymph nodes. IMPRESSION: Wall thickening of the urinary bladder with indwelling Cox catheter. Findings are concerning for UTI. There is also a small focus of air in the anterior urinary bladder wall. Electronically signed by: Ochoa Renner MD 07/03/23 23:33 PM Discharge Plan Visit Data Chief Complaint: Urinary Symptoms Stated Complaint: TROUBLE URINATING ED Provider: Hamilton Alonso Discharge Problem: Acute UTI, Sepsis, THIAGO (acute kidney injury), Elevated troponin Patient Disposition: Being Evaluated by Hospitalist Forms Stand Alone Forms: [email or web address] Prescriptions Prescriptions: No Action docusate sodium 100 mg capsule 100 mg PO BID Qty: 180 1RF folic acid 1 mg tablet 1 mg PO DAILY Qty: 90 1RF warfarin 5 mg tablet 5 mg PO DAILY Qty: 90 1RF digoxin 125 mcg (0.125 mg) tablet 125 mcg PO DAILY Qty: 90 1RF tamsulosin 0.4 mg capsule 0.4 mg PO .QHS Qty: 90 1RF lisinopril 2.5 mg tablet 2.5 mg PO DAILY Qty: 90 1RF amoxicillin-pot clavulanate 875-125 mg tablet 1 tab PO BID Qty: 8 0RF rosuvastatin 40 mg tablet 40 mg PO DAILY Qty: 90 1RF PreserVision AREDS-2 [id number] Capsule 1 tab PO BID Referrals Referrals: Julia Bravo DO [Primary Care Provider] -
[2023-07-03] MEDS ORDERED: ACETAMINOPHEN 325 MG TAB PO STA (23:38)
[2023-07-03 23:57] LABS: Troponin I High Sensitivity 74.1 pg/ml (0-20)
--- NOTE | 2023-07-04 01:49 | History & Physical Report ---
Date of Service July 04, 2023 Assessment & Plan (1) Sepsis due to urinary tract infection: (2) Elevated troponin: (3) H/O: CVA (cerebrovascular accident): (4) Left hemiparesis: (5) Chronic kidney disease, stage 3 (moderate): (6) H/O mechanical aortic valve replacement: (7) GERD (gastroesophageal reflux disease): (8) Hyperlipidemia: (9) Hypertension: (10) Benign prostatic hyperplasia with urinary obstruction: Plan Sepsis due to UTI/BPH with LUTS/recurrent UTI- Follow urine culture and sensitivity Continue Cox catheter placed in the ED Status post 2 L normal saline and 1 L LR in the ED Continue NSS at 100 mils per hour x1 additional liter Continue Zosyn 4.5 g IV begun in ED at every 8 hours Increase tamsulosin from 0.4 to 0.8 mg at bedtime Acute kidney injury on CKD- Creatinine 1.85, with base 1.11 Rehydration as noted above Increase tamsulosin from 0.4 to 0.8 mg at bedtime as noted above Hold lisinopril Repeat laboratories in a.m. Elevated troponin/status post AVR/hypertension- The patient will be admitted to telemetry for serial cardiac enzymes, serial EKG's, cardiac rhythm monitoring and a 2-D echocardiogram with Dopplers. Continue warfarin usual dosing INR 1.9 on admission Follow serial PT/INR every morning Digoxin level 0.7, continue current dosing, presumptively with history of paroxysmal A-fib Previous CVA/left hemiparesis- Uses hemiwalker at home May need PT/OT assessment prior to discharge History of Present Illness Chief Complaint: The patient presents to the emergency department with complaint of difficulty urinating, pressure in his lower abdomen and pelvis area over the past 24 hours, similar to previous urinary tract infections Primary Care Provider: Julia Bravo DO The patient is a 82-year-old male with a past medical history including CVA with residual left hemiparesis, mechanical aortic valve replacement, CKD stage III, history of subarachnoid hemorrhage, RLS, GERD, hyperlipidemia, hypertension, and BPH with LUTS. He presents with symptoms that are similar to previous urinary tract infections with outflow tract obstruction. He had a Cox catheter placed in the emergency department, with significant relief in symptoms. He reports that he had more difficulty walking with his hemiwalker at home due to generalized weakness. Allergies Allergy/AdvReac Type Severity Reaction Status Date / Time No Known Allergies Allergy Unverified 07/04/23 01:41 Home Medications Medication Instructions Recorded Confirmed Type vit C 250 mg-vit E 90 mg-zinc 40 1 tab PO BID 02/07/19 07/04/23 History mg-copper 1 [id number] capsule (PreserVision AREDS-2) rosuvastatin 40 mg tablet 40 mg PO DAILY #90 tabs 06/11/22 07/04/23 Rx docusate sodium 100 mg capsule 100 mg PO BID #180 caps 08/20/22 07/04/23 Rx folic acid 1 mg tablet 1 mg PO DAILY #90 tabs 02/15/23 07/04/23 Rx digoxin 125 mcg (0.125 mg) tablet 125 mcg PO DAILY #90 tabs 06/07/23 07/04/23 Rx tamsulosin 0.4 mg capsule 0.4 mg PO .QHS #90 caps 06/22/23 07/04/23 Rx lisinopril 2.5 mg tablet 2.5 mg PO DAILY #90 tabs 06/29/23 07/04/23 Rx amoxicillin 875 mg-potassium 1 tab PO BID #8 tabs 07/03/23 07/04/23 Rx clavulanate 125 mg tablet warfarin 5 mg tablet 5 mg PO DIRECTED 07/04/23 07/04/23 History Past Med/Surg History Medical History Benign prostatic hyperplasia with urinary obstruction Chronic kidney disease, stage 3 (moderate) GERD (gastroesophageal reflux disease) H/O: CVA (cerebrovascular accident) (01/2019) History of subarachnoid hemorrhage (01/2019) Hyperlipidemia Hypertension Left hemiparesis RLS (restless legs syndrome) Rupture of left long head biceps tendon Surgical History H/O mechanical aortic valve replacement (1984) S/P tonsillectomy Family History Brother Myocardial infarction Denies family history of Ovarian cancer Prostate cancer Breast cancer Colorectal cancer Social History Smoking Status: Former smoker Tobacco Type: Cigarettes Age Quit Using Tobacco: 30; Do You Dip or Chew Tobacco: No; Hx Alcohol Use: No Hx Substance Use: No Preferred Language: [place] Visual Impairment: No Limitations Hearing Ability: Use of Hearing Aid Beliefs That Will Affect Care: None marital status: Current Living Situation: Spouse current occupational status: retired Feels Safe at Home: Yes Diet: regular Diet Comment: regular caffeine: Yes during the past year weight has: remained stable Dental Care, Regularly: No Physical Activity Frequency: Other Physical Activity Frequency Comment: PHYSICAL THERAPY DUE TO STROKE Seatbelt Use: always Sunscreen Use: Yes Review of Systems Review of Systems: The patient denies chest pain, palpitations, shortness of breath, dyspnea on exertion, cough, lower extremity swelling, sore throat, fevers, chills, sweats, nausea, vomiting, diarrhea , constipation, blood in urine or stool, lightheadedness, dizziness, headache, memory loss, loss of consciousness, rash, abnormal bruising or bleeding, focal or generalized weakness, numbness or tingling in right arm or leg, generalized arthralgias or myalgias, back or neck pain, or night sweats. The review of systems is otherwise negative other than for that already noted above, and at least 10 systems have been reviewed. Physical Exam Physical Exam: The patient is awake, alert and oriented 3, well developed and well nourished, normocephalic and atraumatic, lying in bed and in no acute distress. HEENT--PERRL, EOMI, mucous membranes and oropharynx dry. Neck--supple. No JVD. No bruits. Thyroid normal, trachea midline, no adenopathy. Heart--normal S1 and S2. No murmurs, rubs or gallops. Lungs--clear bilaterally, no respiratory distress, no accessory muscle use. Abdomen--normal bowel sounds and soft. Nontender. Nondistended, no hernias or masses, no organomegaly. Extremities--no cyanosis or clubbing. No edema. Dermatologic--normal skin turgor, normal color, no abnormal lymph nodes, no rash. Neurologic--cranial nerves II through XII grossly intact. Left hemiparesis with decreased strength 4+/5 Rheumatologic--decreased range of motion and strength on left Psychiatric--normal affect. Results & Data Results & Data Vital Signs (Past 12 Hours) Vital Signs Temp Pulse Pulse Resp BP BP Pulse Ox 07/04/23 01:14 135/108 H 07/04/23 01:14 114 H 24 97 07/04/23 01:10 106 H 29 H 96 07/04/23 01:00 105 H 22 94 07/04/23 01:00 110/89 07/04/23 00:50 102 H 32 H 97 07/04/23 00:40 102 H 28 H 97 07/04/23 00:30 101 H 33 H 95 07/04/23 00:30 123/71 07/04/23 00:20 102 H 31 H 96 07/04/23 00:10 104 H 30 H 94 07/04/23 00:00 101 H 30 H 97 07/04/23 00:00 106/63 07/03/23 23:50 101 H 31 H 94 07/03/23 23:40 104 H 33 H 95 07/03/23 23:30 102 H 30 H 94 07/03/23 23:30 115/64 07/03/23 23:20 105 H 25 H 96 07/03/23 23:10 108 H 97 H 84 L 07/03/23 23:00 104 H 34 H 95 07/03/23 23:00 132/71 07/03/23 22:51 115 H 28 H 95 07/03/23 22:51 105/83 07/03/23 22:50 114 H 22 85 L 07/03/23 22:49 108 H 24 93 07/03/23 22:20 112 H 26 H 95 07/03/23 22:12 109 H 23 95 07/03/23 22:54 103 H 16 115/64 98 07/03/23 22:15 107 H 07/03/23 20:50 38 C H 117 H 16 173/72 H 95 O2 Del Method 07/04/23 01:14 07/04/23 01:14 07/04/23 01:10 07/04/23 01:00 07/04/23 01:00 07/04/23 00:50 07/04/23 00:40 07/04/23 00:30 07/04/23 00:30 07/04/23 00:20 07/04/23 00:10 07/04/23 00:00 07/04/23 00:00 07/03/23 23:50 07/03/23 23:40 07/03/23 23:30 07/03/23 23:30 07/03/23 23:20 07/03/23 23:10 07/03/23 23:00 07/03/23 23:00 07/03/23 22:51 07/03/23 22:51 07/03/23 22:50 07/03/23 22:49 07/03/23 22:20 07/03/23 22:12 07/03/23 22:54 Room Air 07/03/23 22:15 07/03/23 20:50 Room Air Laboratory Results Laboratory Results WBC 21.78 K/ul (4.8-10.8) H 07/03/23 21:20 RBC 4.24 M/uL (4.70-6.10) L 07/03/23 21:20 Hgb 13.3 g/dl (14.0-18.0) L 07/03/23 21:20 Hct 39.4 % (42.0-52.0) L 07/03/23 21:20 MCV 92.9 fL (80.0-100.0) 07/03/23 21:20 MCH 31.4 pg (25.0-34.0) 07/03/23 21:20 MCHC 33.8 g/dL (32.0-36.0) 07/03/23 21:20 RDW Std Deviation 48.8 fL (36.4-46.3) H 07/03/23 21:20 RDW Coeff of Ayse 14.3 % (11.5-14.5) 07/03/23 21:20 Plt Count 125 K/uL (130-400) L 07/03/23 21:20 MPV 12.5 fL (9.4-12.4) H 07/03/23 21:20 Immature Gran % (Auto) 0.8 % 07/03/23 21:20 Neut % (Auto) 90.2 % 07/03/23 21:20 Lymph % (Auto) 3.8 % 07/03/23 21:20 [place] % (Auto) 4.8 % 07/03/23 21:20 Eos % (Auto) 0.2 % 07/03/23 21:20 Baso % (Auto) 0.2 % 07/03/23 21:20 Neut # (Auto) 19.66 K/uL (1.40-6.50) H 07/03/23 21:20 Lymph # (Auto) 0.83 K/uL (1.20-3.40) L 07/03/23 21:20 [place] # (Auto) 1.04 K/uL (0.11-0.59) H 07/03/23 21:20 Eos # (Auto) 0.04 K/uL (0.00-0.50) 07/03/23 21:20 Baso # (Auto) 0.04 K/uL (0.00-0.20) 07/03/23 21:20 Immature Gran # (Auto) 0.17 K/uL (0.01-0.20) 07/03/23 21:20 PT 19.6 Seconds (9.0-12.0) H 07/03/23 21:20 INR 1.9 (0.9-1.1) H 07/03/23 21:20 Sodium 133 mmol/L (136-145) L 07/03/23 21:20 Potassium 4.2 mmol/L (3.5-5.1) 07/03/23 21:20 Chloride 102 mmol/L (98-107) 07/03/23 21:20 Carbon Dioxide 21 mmol/L (21-32) 07/03/23 21:20 Anion Gap 10 (3-11) 07/03/23 21:20 BUN 25 mg/dl (6-23) H 07/03/23 21:20 Creatinine 1.85 mg/dl (0.6-1.4) H 07/03/23 21:20 Est Cr Clr Drug Dosing Not Reportable 07/03/23 21:20 Est GFR ( Amer) 37.9 ml/min 07/03/23 21:20 Est GFR (Non-Af Amer) 32.7 ml/min 07/03/23 21:20 BUN/Creatinine Ratio 13.5 (10-20) 07/03/23 21:20 Glucose 120 mg/dl (70-99(Fasting)) H 07/03/23 21:20 Lactate 1.8 mmol/L (0.4-2.0) 07/04/23 01:06 Calcium 8.2 mg/dl (8.6-10.3) L 07/03/23 21:20 Total Bilirubin 1.0 mg/dl (0.2-1.0) 07/03/23 21:20 AST 28 U/L (13-39) 07/03/23 21:20 ALT 25 U/L (7-52) 07/03/23 21:20 Alkaline Phosphatase 86 U/L (34-104) 07/03/23 21:20 Troponin I High Sens 79.3 pg/ml (0-20) H* 07/04/23 01:06 Total Protein 6.8 gm/dl (6.0-8.3) 07/03/23 21:20 Albumin 3.7 gm/dl (3.4-5.0) 07/03/23 21:20 Globulin 3.1 gm/dl (2.5-4.0) 07/03/23 21:20 Albumin/Globulin Ratio 1.2 (0.9-2) 07/03/23 21:20 Urine Color Dark Yellow 07/03/23 Unknown Urine Appearance Turbid (Clear) A 07/03/23 Unknown Urine pH 6.0 (4.5-7.5) 07/03/23 Unknown Ur Specific [place] 1.014 (1.000-1.030) 07/03/23 Unknown Urine Protein 3+ (Negative) H 07/03/23 Unknown Urine Glucose (UA) Negative (Negative) 07/03/23 Unknown Urine Ketones Negative (Negative) 07/03/23 Unknown Urine Blood 3+ (Negative) H 07/03/23 Unknown Urine Nitrite Positive (Negative) A 07/03/23 Unknown Urine Bilirubin Negative (Negative) 07/03/23 Unknown Urine Urobilinogen Negative (Negative) 07/03/23 Unknown Ur Leukocyte Esterase 3+ (Negative) H 07/03/23 Unknown Urine WBC (Auto) >30 /hpf (0-5) H 07/03/23 Unknown Urine RBC (Auto) 10-30 /hpf (0-4) H 07/03/23 Unknown U Hyaline Cast (Auto) 1-5 /lpf (0-5) 07/03/23 Unknown U Epithel Cells (Auto) 20-30 /lpf (0-5) H 07/03/23 Unknown Urine Bacteria (Auto) Negative (Negative) 07/03/23 Unknown Urine Yeast Not Reportable 07/03/23 Unknown Digoxin 0.7 ng/ml (0.8-2.0) L 07/03/23 21:20 SARS-CoV-2, RNA, NAAT NEGATIVE (NEGATIVE) 07/04/23 Unknown Impressions Abdomen/Pelvis CT 07/03/23 22:14 Exam(s): CT ABDOMEN + PELVIS Without Contrast EXAM: CT Abdomen and Pelvis Without Intravenous Contrast CLINICAL HISTORY: Reason for exam: retention/abd pain, sepsis, ?uti. TECHNIQUE: Axial computed tomography images of the abdomen and pelvis without intravenous contrast. CTDI is 28.33 mGy and DLP is 1425 mGy-cm. Automated exposure control was utilized for the study. A dose lowering technique was utilized adhering to the principles of ALARA. COMPARISON: No relevant prior studies available. FINDINGS: Lung bases: Unremarkable. No mass. No consolidation. Heart: Cardiomegaly. Mediastinum: Small hiatal hernia. ABDOMEN: Liver: Unremarkable. Gallbladder and bile ducts: Cholelithiasis. No ductal dilation. Pancreas: Unremarkable. No ductal dilation. Spleen: Unremarkable. No splenomegaly. Adrenals: Unremarkable. No mass. Kidneys and ureters: No hydronephrosis. There is a 5 mm RIGHT lower pole calcification, concerning for a renal vascular calcification. Stomach and bowel: Diverticulosis, without acute diverticulitis. No small bowel obstruction. No free intraperitoneal air. PELVIS: Appendix: Normal appendix. Bladder: Wall thickening of the urinary bladder with indwelling Cox catheter. Findings are concerning for UTI. There is also a small focus of air in the anterior urinary bladder wall. No stones. Reproductive: Unremarkable as visualized. ABDOMEN and PELVIS: Intraperitoneal space: Unremarkable. No free air. No significant fluid collection. Bones/joints: Degenerative changes of the spine. No acute fracture. No dislocation. Soft tissues: Unremarkable. Vasculature: Atherosclerotic changes of the aorta. No abdominal aortic aneurysm. Lymph nodes: Unremarkable. No enlarged lymph nodes. IMPRESSION: Wall thickening of the urinary bladder with indwelling Cox catheter. Findings are concerning for UTI. There is also a small focus of air in the anterior urinary bladder wall. Electronically signed by: Ochoa Renner MD 07/03/23 23:33 PM Code Status & VTE Plan Code Status Full code VTE Prophylaxis Plan VTE Prophylaxis will be ordered: Yes PG Care Time/CCT Total # of Minutes Spent Total Time Spent with Patient: Total time spent is greater than 50% in coordination of care (as documented) at patient's floor/unit and/or counseling patient: Coding Level of Care Code 56276 INT INP/OBS CARE 3/75MIN Diagnoses Sepsis due to urinary tract infection A41.9; N39.0 Elevated troponin R77.8 H/O: CVA (cerebrovascular accident) Z86.73 Left hemiparesis G81.94 Chronic kidney disease, stage 3 (moderate) N18.30 H/O mechanical aortic valve replacement Z95.2 GERD (gastroesophageal reflux disease) K21.9 Hyperlipidemia E78.5 Hypertension I10 Benign prostatic hyperplasia with urinary obstruction N40.1; N13.8
[2023-07-04] MEDS ORDERED: SODIUM CHLORIDE 0.9% 1,000 ML IV SCH (03:13)
[2023-07-04] MEDS ORDERED: ONDANSETRON INJ 2 MG/ML 2 ML VIAL IV PRN (03:13)
[2023-07-04] MEDS: TAMSULOSIN HCL 0.4 MG CAP PO SCH ×2 (04:54→21:09)
[2023-07-04] MEDS: PIPERACILLIN/TAZOBACTAM 4.5 GM in DEXTROSE 5% 100 ML IV SCH ×2 (04:54→13:42)
[2023-07-04 06:07] LABS: Basophils # (auto) 0.05 K/uL (0.00-0.20); Basophils % (auto) 0.3 %; Eosinophils # (auto) 0.01 K/uL (0.00-0.50); Eosinophils % (auto) 0.1 %; Hematocrit (blood only) 37.9 % (42.0-52.0); Hemoglobin 12.4 g/dl (14.0-18.0); Immature Granulocytes # (auto) 0.12 K/uL (0.01-0.20); Immature Granulocytes % (auto) 0.6 %; Lymphocytes # (auto) 1.49 K/uL (1.20-3.40); Lymphocytes % (auto) 8.1 %; Mean Corpuscular Hemoglobin 31.3 pg (25.0-34.0); Mean Corpuscular Hgb Conc 32.7 g/dL (32.0-36.0); Mean Corpuscular Volume 95.7 fL (80.0-100.0); Mean Platelet Volume 12.6 fL (9.4-12.4); Monocytes # (auto) 1.03 K/uL (0.11-0.59); Monocytes % (auto) 5.6 %; Neutrophils # (auto) 15.79 K/uL (1.40-6.50); Neutrophils % (auto) 85.3 %; Platelet Count 103 K/uL (130-400); RDW Coefficient of Variation 14.3 % (11.5-14.5); RDW Standard Deviation 50.3 fL (36.4-46.3); Red Blood Count 3.96 M/uL (4.70-6.10); White Blood Count 18.49 K/ul (4.8-10.8)
[2023-07-04 06:47] LABS: Albumin Level 3.3 gm/dl (3.4-5.0); BUN Creatinine Ratio 14.5 (10-20); Calcium 7.9 mg/dl (8.6-10.3); Creatinine Clr Calc Pharmacy 33.9 ml/min; Est GFR (African American) 41.4 ml/min; Est GFR (Non-African American) 35.7 ml/min; Magnesium 1.8 mg/dl (1.7-2.4); Phosphorus 3.7 mg/dl (2.5-4.9); Potassium 4.3 mmol/L (3.5-5.1)
[2023-07-04 07:30] LABS: INR 1.8 (0.9-1.1); Prothrombin Time 18.8 Seconds (9.0-12.0)
[2023-07-04] MEDS ORDERED: VANCOMYCIN CONSULT ACTIVE PRN (08:08)
[2023-07-04] MEDS ORDERED: WARFARIN SOD 7.5 MG TAB PO ONE (08:30)
[2023-07-04] MEDS: DOCUSATE SODIUM 100 MG CAP PO SCH ×2 (08:38→21:08)
[2023-07-04] MEDS: CEROVITE ADV FORMULA TAB PO SCH (08:38)
[2023-07-04] MEDS: FOLIC ACID 1 MG TAB PO SCH (08:38)
[2023-07-04] MEDS: ROSUVASTATIN CALCIUM 20 MG TAB PO SCH (08:38)
[2023-07-04] MEDS ORDERED: VANCOMYCIN HCL 1,750 MG in SODIUM CHLORIDE 0.9% 500 ML IV ONE (09:15)
--- NOTE | 2023-07-04 13:37 | Pharmacy Report ---
Pharmacy PK ABX Note - Date of Service July 04, 2023 - Assessment and Plan Assessment 82 year old M receiving vancomycin/zosyn for treatment of sepsis-possible urinary source. Pertinent microbiologic data includes: / blood cultures with Gram negative bacilli (others pending), urine culture pending. Patient appears to have an acute kidney injury, half life currently estimating >28 hours. Will start vancomycin 1000 mg q24H tonight as this is predicting appropriate therape utic concentrations with current crcl but will also get a level tomorrow morning in anticipation of renal improvement. Plan Vancomycin * Loading dose: 1012 mg IV x 1 * Maintenance dose: 1000 mg IV every 24 hours * Regimen is predicted to achieve target AUC/CHRIS of 400-600 mg/L.hr * Random level ordered for 9/4 AM labs Pharmacy will continue to follow and will adjust dose/frequency as necessary. Thank you. Pharmacy has transitioned to AUC monitoring for vancomycin. AUC/CHRIS is the preferred PK/PD target and is associated with decreased risk of nephrotoxicity compared to traditional trough targets.
--- NOTE | 2023-07-04 16:19 | Hospitalist Progress Note ---
Date of Service July 04, 2023 Assessment & Plan (1) Bacteremia: Plan: 2nd to GNR. source - urine. cont zosyn. I had added vanco to cover MRSA/enterococcus but will stop. await urine/blood cx's. BPs satisfactory. repeat labs am. (2) Acute UTI: Plan: 2nd GNR. likely due to BPH with LUTS. await culture. cont zosyn. (3) Benign prostatic hyperplasia with urinary obstruction: Plan: cont flomax. consider adding finasteride as well. (4) Acute kidney injury: Plan: Peak Cr 1.85 1.7 this am cont hydration repeat BMP am baseline Cr ~1.1 (5) Elevated troponin: Plan: HS trop minimally elevated (70s) this is 2nd to myocardial demand ischemia in setting of #1, #2 no evidence of ACS (6) H/O: CVA (cerebrovascular accident): Plan: with resulting left-sided hemiparesis cont coumadin PT, OT while here (7) H/O mechanical aortic valve replacement: Plan: echo findings noted today adequate AV function EF preserved INR goal 2.5 to 3.5 INR subtherapeutic today - give additional 2.5mg of coumadin today daily INR while here (8) Chronic kidney disease, stage 3 (moderate): Plan: stage 3b bmp am has concomitant THIAGO at this time as above (9) History of subarachnoid hemorrhage: Plan: noted (10) GERD (gastroesophageal reflux disease): Plan: not on meds for such at home (11) Hyperlipidemia: Plan: cont statin (12) Hypertension: Plan: BPs mildly low due to sepsis hold RENATA (13) Left thigh pain: Plan: ?OA left hip? ?OA left knee? both? is left thigh hurting simply due to increased stiffness from his hemiparesis? other issue? start with x-rays L hip and L knee re-eval after that Plan DVT proph - coumadin updated at bedside will need PT/OT resume fluids - LR at 50cc/hr Admission and Anticipated Discharge Date Admission Date: July 04, 2023 Subjective patient sleeping upon arrival easily awakens severely hearing impaired states "I feel better" when asked what feels better today he can't give specific details appetite poor per nursing flowsheets he mentions multiple times having urinary retention and once a yee was placed he had "immediate relief" of pain from his bladder distension tele overnight - NSR Review of Systems Review of Systems: gen - fevers/chills cv - no orthopnea, no chest pain pulm - no dyspnea GI - no abd pain musculo - had a fall in 11/2022; since then has had left thigh pain and left knee pain; inquires about x-rays to see what's wrong Physical Exam Physical Exam: gen - NAD, comfortable HENT - severely hearing impaired; MM dry neck - no JVD heart - mechanical valve closure sound, tachy, s1 s2 lungs - CTA b/l abd - soft NT ND BS+ ext - pulses 2+ b/l, no edema musculo - left hip passive ROM is restricted relative to right hip; no pain with such; no pain over left trochanteric bursa; ?mild effusion left knee; warm to touch over left knee; no joint line pain; no obvious deformity of left leg Results & Data Results & Data Vital Signs (Past 12 Hours) Vital Signs Temp Pulse Resp BP Pulse Ox O2 Del Method 07/04/23 11:13 36.6 C 97 H 14 107/69 94 Room Air 07/04/23 10:45 128/72 07/04/23 07:32 37.5 C 100 H 15 98/65 L 94 Room Air Laboratory Results Laboratory Results - last 24 hr 07/04/23 07/04/23 07/04/23 05:33 05:33 05:33 WBC 18.49 H RBC 3.96 L Hgb 12.4 L Hct 37.9 L MCV 95.7 MCH 31.3 MCHC 32.7 RDW Std Deviation 50.3 H RDW Coeff of Ayse 14.3 Plt Count 103 L MPV 12.6 H Immature Gran % (Auto) 0.6 Neut % (Auto) 85.3 Lymph % (Auto) 8.1 [place] % (Auto) 5.6 Eos % (Auto) 0.1 Baso % (Auto) 0.3 Neut # (Auto) 15.79 H Lymph # (Auto) 1.49 [place] # (Auto) 1.03 H Eos # (Auto) 0.01 Baso # (Auto) 0.05 Immature Gran # (Auto) 0.12 PT 18.8 H INR 1.8 H Sodium 135 L Potassium 4.3 Chloride 105 Carbon Dioxide 22 Anion Gap 8 BUN 25 H Creatinine 1.72 H Est Cr Clr Drug Dosing 33.9 Est GFR ( Amer) 41.4 Est GFR (Non-Af Amer) 35.7 BUN/Creatinine Ratio 14.5 Glucose 107 H Calcium 7.9 L Phosphorus 3.7 Magnesium 1.8 Albumin 3.3 L Diagnostic Findings blood cx's 1/4 - GNR urine cx - GNR PG Care Time/CCT Total # of Minutes Spent Total Time Spent with Patient: Total time spent is greater than 50% in coordination of care (as documented) at patient's floor/unit and/or counseling patient: Coding Level of Care Code 53724 SUB INP/OBS CARE 2/35MIN Diagnoses Bacteremia R78.81 Acute UTI N39.0 Benign prostatic hyperplasia with urinary obstruction N40.1; N13.8 Acute kidney injury N17.9 Elevated troponin R77.8 H/O: CVA (cerebrovascular accident) Z86.73 H/O mechanical aortic valve replacement Z95.2 Chronic kidney disease, stage 3 (moderate) N18.30 History of subarachnoid hemorrhage Z86.79 GERD (gastroesophageal reflux disease) K21.9 Hyperlipidemia E78.5 Hypertension I10 Left thigh pain M79.652
[2023-07-04] MEDS: DIGOXIN 0.125 MG TAB PO SCH (17:25)
[2023-07-04] MEDS: ACETAMINOPHEN 325 MG TAB PO PRN (17:38)
--- NOTE | 2023-07-04 17:39 | XRay Report ---
XR knee LT 1 or 2V routine CLINICAL HISTORY: left knee pain/effusion, fall COMPARISON STUDY: None. FINDINGS: No fracture or dislocation within the left knee. No significant knee effusion. Vascular jl cifications are noted. Soft tissues are unremarkable. There is mild to moderate tricompartmental oste oarthritis. IMPRESSION: 1. No acute fracture or dislocation within the left knee. 2. Mild to moderate tricompartmental osteoarthritis. ACT 112: Negative or not required by law. Electronically signed by: Jah Gama M.D. 07/04/2023 5:38 PM
--- NOTE | 2023-07-04 17:41 | XRay Report ---
XR hip LT 2V w pelvis CLINICAL HISTORY: left hip pain, fall COMPARISON STUDY: None. FINDINGS: No acute fracture or dislocation within the pelvis or hips. Soft tissues are unremarkable. Vascular calcifications are noted. IMPRESSION: No acute fracture or dislocation within the pelvis or hips. ACT 112: Negative or not required by law. Electronically signed by: Jah Gama M.D. 07/04/2023 5:39 PM
[2023-07-04] MEDS ORDERED: LACTATED RINGER'S 1,000 ML IV SCH (20:30)
[2023-07-04] MEDS ORDERED: TRIAMCINOLONE ACET 0.025% CR 15 GM TUBE EXT PRN (21:09)
--- NOTE | 2023-07-05 00:40 | Ultrasound Report ---
Exam(s): US VENOUS RIGHT UPPER EXTREMITY EXAM: US Duplex Right Upper Extremity Veins CLINICAL HISTORY: New swelling and erythema. TECHNIQUE: Real-time duplex ultrasound scan of the right upper extremity veins integrating B-mode two-dimensional vascular structure, Doppler spectral analysis, color flow Doppler imaging and compression. COMPARISON: No relevant prior studies available. FINDINGS: Deep veins: Unremarkable. No DVT in the internal jugular, subclavian, axillary, or brachial veins. The veins demonstrate normal color flow, are normally compressible, with normal phasic flow and/or augmentation response. Superficial veins: Unremarkable. No thrombus in the visualized basilic and cephalic veins. Soft tissues: No acute findings. IMPRESSION: No deep vein thrombosis of the right upper extremity. Electronically signed by: Yareli Virk MD 07/05/23 00:39 AM
[2023-07-05] MEDS: PIPERACILLIN/TAZOBACTAM 4.5 GM in DEXTROSE 5% 100 ML IV SCH ×2 (00:49→08:05)
[2023-07-05] MEDS ORDERED: Nursing to Pharmacy Communication SCH (01:45)
[2023-07-05 06:43] LABS: INR 2.3 (0.9-1.1); Prothrombin Time 23.6 Seconds (9.0-12.0)
[2023-07-05 07:05] LABS: Albumin Level 2.9 gm/dl (3.4-5.0); BUN Creatinine Ratio 13.9 (10-20); Calcium 7.7 mg/dl (8.6-10.3); Creatinine Clr Calc Pharmacy 36.9 ml/min; Est GFR (African American) 45.9 ml/min; Est GFR (Non-African American) 39.6 ml/min; Phosphorus 2.3 mg/dl (2.5-4.9); Potassium 3.7 mmol/L (3.5-5.1)
[2023-07-05 07:54] LABS: Basophils # (auto) 0.02 K/uL (0.00-0.20); Basophils % (auto) 0.2 %; Eosinophils # (auto) 0.14 K/uL (0.00-0.50); Eosinophils % (auto) 1.3 %; Hematocrit (blood only) 33.9 % (42.0-52.0); Hemoglobin 11.1 g/dl (14.0-18.0); Immature Granulocytes # (auto) 0.07 K/uL (0.01-0.20); Immature Granulocytes % (auto) 0.7 %; Lymphocytes # (auto) 0.99 K/uL (1.20-3.40); Lymphocytes % (auto) 9.4 %; Mean Corpuscular Hemoglobin 31.4 pg (25.0-34.0); Mean Corpuscular Hgb Conc 32.7 g/dL (32.0-36.0); Mean Corpuscular Volume 95.8 fL (80.0-100.0); Mean Platelet Volume 12.7 fL (9.4-12.4); Monocytes # (auto) 0.68 K/uL (0.11-0.59); Monocytes % (auto) 6.5 %; Neutrophils # (auto) 8.59 K/uL (1.40-6.50); Neutrophils % (auto) 81.9 %; Platelet Count 115 K/uL (130-400); RDW Coefficient of Variation 14.3 % (11.5-14.5); RDW Standard Deviation 50.7 fL (36.4-46.3); Red Blood Count 3.54 M/uL (4.70-6.10); White Blood Count 10.49 K/ul (4.8-10.8)
[2023-07-05] MEDS: FOLIC ACID 1 MG TAB PO SCH (08:02)
[2023-07-05] MEDS: ROSUVASTATIN CALCIUM 20 MG TAB PO SCH (08:02)
[2023-07-05] MEDS: FINASTERIDE 5 MG TAB PO SCH (08:02)
[2023-07-05] MEDS: DOCUSATE SODIUM 100 MG CAP PO SCH ×2 (08:03→19:58)
[2023-07-05] MEDS: CEROVITE ADV FORMULA TAB PO SCH (08:03)
[2023-07-05] MEDS: ADVANCED PROBIOTIC 1250 MG CAPSULE PO SCH (11:52)
--- NOTE | 2023-07-05 16:43 | XRay Report ---
KUB HISTORY: abdominal distension COMPARISON: Abdomen and pelvis CT 07/03/2023. FINDINGS: The bowel gas pattern is unremarkable. There are no dilated loops of small bowel to suggest an obstruction. A cardiac valve prosthesis and post sternotomy changes are noted. No pneumoperitone um or pneumatosis. Vascular calcifications are present. Mild elevation of the right hemidiaphragm, un changed. IMPRESSION: Nonobstructive bowel gas pattern. ACT 112: Negative or not required by law. Electronically signed by: Jah Gama M.D. 07/05/2023 4:42 PM
[2023-07-05] MEDS: DIGOXIN 0.125 MG TAB PO SCH (17:00)
[2023-07-05] MEDS: WARFARIN SOD 5 MG TAB PO SCH (17:00)
[2023-07-05 19:33] LABS: A calco-baum cmplx NotReported Not Detected (NotDetected); Bact fragilis Not Reported Not Detected (NotDetected); C auris Not Reported Not Detected (NotDetected); CTX-M Resistant Gene Not Detected (NotDetected); Calbicans Not Reported Not Detected (NotDetected); Candida glabrata Not Reported Not Detected (NotDetected); Candida krusei Not Reported Not Detected (NotDetected); Cneoformans/gatti Not Reported Not Detected (NotDetected); Cparapsilosis Not Reported Not Detected (NotDetected); Ctropicalis Not Reported Not Detected (NotDetected); E cloacae compx Not Reported Not Detected (NotDetected); Efaecalis Not Reported Not Detected (NotDetected); Efaecium Not Reported Not Detected (NotDetected); Enterobacterales Not Reported DETECTED (NotDetected); Escherichia coli Not Reported DETECTED (NotDetected); H influenzae Not Reported Not Detected (NotDetected); IMP Resistant Gene Not Detected (NotDetected); K aerogenes Not Reported Not Detected (NotDetected); KPC Resistant Gene Not Detected (NotDetected); Koxytoca Not Reported Not Detected (NotDetected); Kpneumoniae grp Not Reported Not Detected (NotDetected); Lmonocyt Not Reported Not Detected (NotDetected); N meningitidis Not Reported Not Detected (NotDetected); NDM Resistant Gene Not Detected (NotDetected); OXA 48 Like Resistant Gene Not Detected (NotDetected); P aeruginosa Not Reported Not Detected (NotDetected); Proteus spp Not Reported Not Detected (NotDetected); Salmonella spp Not Reported Not Detected (NotDetected); Smarcescens Not Reported Not Detected (NotDetected); Staph lugdunensis Not Reported Not Detected (NotDetected); Staph spp. Not Reported Not Detected (NotDetected); Staphaureus Not Reported Not Detected (NotDetected); Staphepi Not Reported Not Detected (NotDetected); Stenmaltophilia Not Reported Not Detected (NotDetected); Strep agal(GrpB) Not Reported Not Detected (NotDetected); Strep pneum Not Reported Not Detected (NotDetected); Strep pyog (GrpA) Not Reported Not Detected (NotDetected); Strep spp Not Reported Not Detected (NotDetected); VIM Resistant Gene Not Detected (NotDetected); mcr-1 Colistin Resistant Gene Not Detected (NotDetected)
[2023-07-05 19:52] LABS: Enterobacterales DETECTED (NotDetected)
[2023-07-05] MEDS: TAMSULOSIN HCL 0.4 MG CAP PO SCH (19:57)
[2023-07-05] MEDS: ACETAMINOPHEN 325 MG TAB PO PRN (19:57)
[2023-07-05] MEDS: CIPROFLOXACIN / D5W 400 MG/200 ML BAG IV SCH (19:58)
--- NOTE | 2023-07-05 20:54 | Hospitalist Progress Note ---
Date of Service July 05, 2023 Assessment & Plan (1) Bacteremia: Plan: 2nd to ecoli. source - urine. stop zosyn - change to IV cipro. will ultimately be able to take cipro PO to cover both the urine & blood. improving nicely. (2) Acute UTI: Plan: 2nd ecoli. likely due to BPH with LUTS. stop zosyn; change to IV cipro. (3) Benign prostatic hyperplasia with urinary obstruction: Plan: cont flomax. add finasteride 5mg daily due to obstruction. (4) Acute kidney injury: Plan: IMPROVING Peak Cr 1.85 1.5 this am baseline Cr ~1.1 stop fluids BMP am (5) Elevated troponin: Plan: HS trop minimally elevated (70s) this is 2nd to myocardial demand ischemia in setting of #1, #2 no evidence of ACS (6) H/O: CVA (cerebrovascular accident): Plan: with resulting left-sided hemiparesis cont coumadin PT, OT while here (7) H/O mechanical aortic valve replacement: Plan: echo findings noted; adequate AV function EF preserved INR goal 2.5 to 3.5 INR now 2.3 cont usual coumadin dosing daily INR while here (8) Chronic kidney disease, stage 3 (moderate): Plan: stage 3b bmp am has concomitant THIAGO at this time as above (9) History of subarachnoid hemorrhage: Plan: noted (10) GERD (gastroesophageal reflux disease): Plan: not on meds for such at home (11) Hyperlipidemia: Plan: cont statin (12) Hypertension: Plan: BPs mildly low due to sepsis cont to hold RENATA (13) Left thigh pain: Plan: IT band tendonitis due to muscle stiffness/rigidity/weakness from prior stroke? L hip x-rays without any OA surprisingly L knee x-rays with mild OA no evidence of trochanteric bursitis treat symptomatically can use voltaren gel qid (14) Abdominal distension: Plan: get KUB x-ray r/o impaction with overflow stooling r/o ileus Plan DVT proph - coumadin updated at bedside again today PT/OT progressing Admission and Anticipated Discharge Date Admission Date: July 04, 2023 Subjective tele overnight - NSR or mild sinus tach "I feel good" eating well per nursing flowsheets denies any complaints it's very hard to communicate because of his severe hearing impairment and his hearing aids weren't working declined PT session today having multiple episodes of passing small amounts of stool but denies abd pain left lateral leg pain remains (chronic) Review of Systems Review of Systems: gen - feels better but still weak cv - no chest pain, no orthopnea pulm - no dyspnea GI - no nausea/emesis - yee remains intact with clear yellow urine Physical Exam Physical Exam: gen - NAD, comfortable, looks good HENT - severely hearing impaired; MM still dry but improving neck - no JVD heart - mechanical valve closure sound, s1 s2 lungs - CTA b/l abd - soft NT BS+; distended - mildly ext - pulses 2+ b/l, no edema musculo - mild tenderness over IT band left lateral leg but no trochanteric bursal pain with palpation Results & Data Results & Data Vital Signs (Past 12 Hours) Vital Signs Temp Pulse Pulse Resp BP Pulse Ox O2 Del Method 07/05/23 19:40 37.7 C H 91 H 18 125/74 Room Air 07/05/23 17:00 105 H 07/05/23 15:43 37.1 C 90 18 117/68 95 Room Air 07/05/23 10:53 95 H Laboratory Results Laboratory Results - last 24 hr 07/03/23 07/05/23 07/05/23 22:23 05:36 05:36 WBC 10.49 RBC 3.54 L Hgb 11.1 L Hct 33.9 L MCV 95.8 MCH 31.4 MCHC 32.7 RDW Std Deviation 50.7 H RDW Coeff of Ayse 14.3 Plt Count 115 L MPV 12.7 H Immature Gran % (Auto) 0.7 Neut % (Auto) 81.9 Lymph % (Auto) 9.4 [place] % (Auto) 6.5 Eos % (Auto) 1.3 Baso % (Auto) 0.2 Neut # (Auto) 8.59 H Lymph # (Auto) 0.99 L [place] # (Auto) 0.68 H Eos # (Auto) 0.14 Baso # (Auto) 0.02 Immature Gran # (Auto) 0.07 PT 23.6 H INR 2.3 H Sodium Potassium Chloride Carbon Dioxide Anion Gap BUN Creatinine Est Cr Clr Drug Dosing Est GFR ( Amer) Est GFR (Non-Af Amer) BUN/Creatinine Ratio Glucose Calcium Phosphorus Albumin Enterobacterales (PCR) DETECTED A E. coli (PCR) DETECTED A mcr-1 Colistin Res Gene PCR Not Detected blaIMP Car res Gene PCR Not Detected KPC-Carbap Res Gene PCR Not Detected blaNDM Car Res Gene PCR Not Detected OXA-48 Carbapenem Resis Gene (PCR) Not Detected blaVIM Car Res Gene PCR Not Detected CTX-M Gene Resistance (PCR) Not Detected Bld Cult ID Panel PCR See PCR Comment 07/05/23 05:36 WBC RBC Hgb Hct MCV MCH MCHC RDW Std Deviation RDW Coeff of Ayse Plt Count MPV Immature Gran % (Auto) Neut % (Auto) Lymph % (Auto) [place] % (Auto) Eos % (Auto) Baso % (Auto) Neut # (Auto) Lymph # (Auto) [place] # (Auto) Eos # (Auto) Baso # (Auto) Immature Gran # (Auto) PT INR Sodium 136 Potassium 3.7 Chloride 109 H Carbon Dioxide 21 Anion Gap 6 BUN 22 Creatinine 1.58 H Est Cr Clr Drug Dosing 36.9 Est GFR ( Amer) 45.9 Est GFR (Non-Af Amer) 39.6 BUN/Creatinine Ratio 13.9 Glucose 103 H Calcium 7.7 L Phosphorus 2.3 L D Albumin 2.9 L Enterobacterales (PCR) E. coli (PCR) mcr-1 Colistin Res Gene PCR blaIMP Car res Gene PCR KPC-Carbap Res Gene PCR blaNDM Car Res Gene PCR OXA-48 Carbapenem Resis Gene (PCR) blaVIM Car Res Gene PCR CTX-M Gene Resistance (PCR) Bld Cult ID Panel PCR PG Care Time/CCT Total # of Minutes Spent Total Time Spent with Patient: Total time spent is greater than 50% in coordination of care (as documented) at patient's floor/unit and/or counseling patient: Coding Level of Care Code 74677 SUB INP/OBS CARE 3/50MIN Diagnoses Bacteremia R78.81 Acute UTI N39.0 Benign prostatic hyperplasia with urinary obstruction N40.1; N13.8 Acute kidney injury N17.9 Elevated troponin R77.8 H/O: CVA (cerebrovascular accident) Z86.73 H/O mechanical aortic valve replacement Z95.2 Chronic kidney disease, stage 3 (moderate) N18.30 History of subarachnoid hemorrhage Z86.79 GERD (gastroesophageal reflux disease) K21.9 Hyperlipidemia E78.5 Hypertension I10 Left thigh pain M79.652 Abdominal distension R14.0
--- NOTE | 2023-07-05 22:20 | Electrocardiogram Report ---
Test Reason : Blood Pressure : / mmHG Vent. Rate : 103 BPM Atrial Rate : 103 BPM P-R Int : 186 ms QRS Dur : 102 ms QT Int : 346 ms P-R-T Axes : 090 -27 092 degrees QTc Int : 453 ms Sinus tachycardia Minimal voltage criteria for LVH, may be normal variant Marked ST abnormality, possible lateral subendocardial injury Abnormal ECG No previous ECGs available Confirmed by Bennett Barrera ([id number]) on 07/05/2023 10:20:05 PM Referred By: REFERRED SELF Confirmed By:Bennett Barrera
--- NOTE | 2023-07-05 22:35 | Electrocardiogram Report ---
Test Reason : Blood Pressure : / mmHG Vent. Rate : 103 BPM Atrial Rate : 103 BPM P-R Int : 172 ms QRS Dur : 100 ms QT Int : 360 ms P-R-T Axes : 011 -31 073 degrees QTc Int : 471 ms Poor data quality, interpretation may be adversely affected Sinus tachycardia Left axis deviation Left ventricular hypertrophy with repolarization abnormality Possible Inferior infarct Abnormal ECG When compared with ECG of 03-JUL-2023 23:15, T wave inversion more evident in Lateral leads Confirmed by Bennett Barrera ([id number]) on 07/05/2023 10:35:13 PM Referred By: REFERRED SELF Confirmed By:Bennett Barrera
[2023-07-06 06:37] LABS: Basophils # (auto) 0.02 K/uL (0.00-0.20); Basophils % (auto) 0.2 %; Eosinophils % (auto) 2.2 %; Hematocrit (blood only) 33.5 % (42.0-52.0); Hemoglobin 10.9 g/dl (14.0-18.0); Immature Granulocytes # (auto) 0.03 K/uL (0.01-0.20); Immature Granulocytes % (auto) 0.3 %; Lymphocytes # (auto) 1.24 K/uL (1.20-3.40); Lymphocytes % (auto) 13.8 %; Mean Corpuscular Hemoglobin 30.9 pg (25.0-34.0); Mean Corpuscular Hgb Conc 32.5 g/dL (32.0-36.0); Mean Corpuscular Volume 94.9 fL (80.0-100.0); Mean Platelet Volume 12.3 fL (9.4-12.4); Monocytes # (auto) 0.71 K/uL (0.11-0.59); Monocytes % (auto) 7.9 %; Neutrophils % (auto) 75.6 %; Platelet Count 121 K/uL (130-400); RDW Coefficient of Variation 14.1 % (11.5-14.5); RDW Standard Deviation 49.1 fL (36.4-46.3); Red Blood Count 3.53 M/uL (4.70-6.10)
[2023-07-06 06:47] LABS: BUN Creatinine Ratio 14.1 (10-20); Calcium 7.9 mg/dl (8.6-10.3); Est GFR (African American) 52.2 ml/min; Phosphorus 1.8 mg/dl (2.5-4.9); Potassium 3.7 mmol/L (3.5-5.1)
[2023-07-06 06:52] LABS: INR 2.8 (0.9-1.1); Prothrombin Time 28.4 Seconds (9.0-12.0)
[2023-07-06] MEDS: DOCUSATE SODIUM 100 MG CAP PO SCH ×2 (08:23→21:32)
[2023-07-06] MEDS: CIPROFLOXACIN / D5W 400 MG/200 ML BAG IV SCH ×2 (08:23→21:26)
[2023-07-06] MEDS: ADVANCED PROBIOTIC 1250 MG CAPSULE PO SCH (08:23)
[2023-07-06] MEDS: ROSUVASTATIN CALCIUM 20 MG TAB PO SCH (08:23)
[2023-07-06] MEDS: FINASTERIDE 5 MG TAB PO SCH (08:23)
[2023-07-06] MEDS: FOLIC ACID 1 MG TAB PO SCH (08:23)
[2023-07-06] MEDS: DIGOXIN 0.125 MG TAB PO SCH (15:16)
[2023-07-06] MEDS: CEROVITE ADV FORMULA TAB PO SCH (15:18)
[2023-07-06] MEDS ORDERED: WARFARIN SOD 2.5 MG TAB PO SCH (16:00)
--- NOTE | 2023-07-06 18:45 | Electrocardiogram Report ---
Test Reason : Blood Pressure : / mmHG Vent. Rate : 101 BPM Atrial Rate : 101 BPM P-R Int : 200 ms QRS Dur : 104 ms QT Int : 348 ms P-R-T Axes : 000 -24 103 degrees QTc Int : 451 ms Sinus tachycardia with Premature supraventricular complexes Left ventricular hypertrophy with repolarization abnormality Nonspecific ST abnormality Abnormal ECG When compared with ECG of 04-JUL-2023 05:24, (unconfirmed) Premature supraventricular complexes are now Present ST elevation now present in Inferior leads Nonspecific T wave abnormality no longer evident in Inferior leads Nonspecific T wave abnormality, improved in Anterior leads Confirmed by Edwin Cavazos ([id number]) on 07/06/2023 6:44:38 PM Referred By: REFERRED SELF Confirmed By:Dimitris Cavazos
--- NOTE | 2023-07-06 18:52 | Electrocardiogram Report ---
Test Reason : Blood Pressure : / mmHG Vent. Rate : 106 BPM Atrial Rate : 093 BPM P-R Int : 000 ms QRS Dur : 108 ms QT Int : 354 ms P-R-T Axes : 000 -29 123 degrees QTc Int : 470 ms Poor data quality, interpretation may be adversely affected Atrial fibrillation with rapid ventricular response with premature ventricular or aberrantly conducte d complexes Minimal voltage criteria for LVH, may be normal variant Cannot rule out Anterior infarct , age undetermined Marked ST abnormality, possible lateral subendocardial injury Abnormal ECG When compared with ECG of 05-JUL-2023 05:55, (unconfirmed) Atrial fibrillation has replaced Sinus rhythm Confirmed by Edwin Cavazos ([id number]) on 07/06/2023 6:51:57 PM Referred By: REFERRED SELF Confirmed By:Dimitris Cavazos
--- NOTE | 2023-07-06 20:30 | Hospitalist Progress Note ---
Date of Service July 06, 2023 Assessment & Plan (1) Bacteremia: Plan: 2nd to ecoli. source - urine. initially on zosyn - now IV cipro. will ultimately be able to take cipro PO to cover both the urine & blood. day #3 of abx today. bacteremia improving / resolving. (2) Acute UTI: Plan: 2nd ecoli. likely due to BPH with LUTS. cont IV cipro another 1-2 days then transition to PO cipro. (3) PAF (paroxysmal atrial fibrillation): Plan: 3-4 hour episode last pm no symptoms echo this admission - is on chronic digoxin with acceptable level earlier this stay he & his are not aware of prior a.fib, but I don't see any other indication for him to be on digoxin records suggest he has been on digoxin for many years unfortunately I don't have much in the way of records pre-[address] converted back to NSR last pm cont coumadin cont digoxin could consider low-dose metoprolol tartrate for additional rate control in the event he goes back into afib (rates were 110-130 by report) stress of his illness likely cause of the PAF check TSH in am (4) Benign prostatic hyperplasia with urinary obstruction: Plan: cont flomax. added finasteride 5mg daily due to obstruction. cont yee. would keep yee at least 7-10 days. (5) Acute kidney injury: Plan: IMPROVING 2nd to sepsis-associated ATN Peak Cr 1.85 1.4 this am baseline Cr ~1.1 BMP am (6) Elevated troponin: Plan: HS trop minimally elevated (70s) this is 2nd to myocardial demand ischemia in setting of #1, #2 no evidence of ACS (7) H/O: CVA (cerebrovascular accident): Plan: with resulting left-sided hemiparesis cont coumadin PT, OT while here (8) H/O mechanical aortic valve replacement: Plan: echo findings noted; adequate AV function EF preserved INR goal 2.5 to 3.5 INR now 2.8 cont usual coumadin dosing daily INR while here (9) Chronic kidney disease, stage 3 (moderate): Plan: stage 3b bmp am has concomitant THIAGO at this time as above (10) History of subarachnoid hemorrhage: Plan: noted (11) GERD (gastroesophageal reflux disease): Plan: not on meds for such at home (12) Hyperlipidemia: Plan: cont statin (13) Hypertension: Plan: BPs still mildly low due to sepsis cont to hold RENATA (14) Left thigh pain: Plan: IT band tendonitis due to muscle stiffness/rigidity/weakness from prior stroke? denies any back pain thus referred, radicular pain not suspected L hip x-rays without any OA surprisingly L knee x-rays with mild OA no evidence of trochanteric bursitis treat symptomatically voltaren gel qid PT, OT (15) Abdominal distension: Plan: KUB x-ray without impaction or severe constipation he is very sedentary and in bed or chair most days mild gaseous distension from inactivity? Plan DVT proph - coumadin updated at bedside again today PT/OT discussed rehab in detail - will need social work assistance tomorrow to help with dispo Admission and Anticipated Discharge Date Admission Date: July 04, 2023 Subjective patient resting in bed comfortably denies any complaints at bedside nursing flowsheets show 50% of meals consumed or more last pm he had about a 3.5 hour episode of rapid a.fib with rates in the low 100s he was asymptomatic he wasn't even aware that he had this we discussed a.fib we discussed that he is on digoxin and perhaps he has had a.fib in the past we discussed it is a risk factor for stroke but he is already on coumadin discussed why he may have gone into a.fib (stress of illness) seen by PT/OT today both advising rehab discussed options - SNF vs acute rehab at [facility] asked about SNF - mentioned facilities the likes of [facility], [facility], [facility], etc etc immediately pt and stated they do NOT want [facility] he was there in the past and he had a very negative experience Review of Systems Review of Systems: gen - no fevers or chills today cv - no chest pain, no palpitations when he was in a.fib last pm, no orthopnea, no edema pulm - no dyspnea, no cough HENT - had purulent drainage from his nose today - had such a few times today Physical Exam Physical Exam: gen - NAD, comfortable, looks well, very animated today HENT - hearing better today - has hearing aids; MMM; no thrush neck - no JVD heart - mechanical valve closure sound, s1 s2, no murmur; rate <100 lungs - CTA b/l abd - soft NT BS+; distended - mildly - no change ext - pulses 2+ b/l, no edema Results & Data Results & Data Vital Signs (Past 12 Hours) Vital Signs Temp Pulse Pulse Resp BP Pulse Ox O2 Del Method 07/06/23 19:09 37.3 C 91 H 18 112/69 96 Room Air 07/06/23 15:16 80 07/06/23 15:11 36.9 C 80 20 101/62 98 Room Air 07/06/23 10:52 36.7 C 89 20 119/78 95 Room Air Laboratory Results Laboratory Results - last 24 hr 07/06/23 07/06/23 07/06/23 05:20 05:20 05:20 WBC 9.00 RBC 3.53 L Hgb 10.9 L Hct 33.5 L MCV 94.9 MCH 30.9 MCHC 32.5 RDW Std Deviation 49.1 H RDW Coeff of Ayse 14.1 Plt Count 121 L MPV 12.3 Immature Gran % (Auto) 0.3 Neut % (Auto) 75.6 Lymph % (Auto) 13.8 [place] % (Auto) 7.9 Eos % (Auto) 2.2 Baso % (Auto) 0.2 Neut # (Auto) 6.80 H Lymph # (Auto) 1.24 [place] # (Auto) 0.71 H Eos # (Auto) 0.20 Baso # (Auto) 0.02 Immature Gran # (Auto) 0.03 PT 28.4 H INR 2.8 H Sodium 138 Potassium 3.7 Chloride 109 H Carbon Dioxide 22 Anion Gap 7 BUN 20 Creatinine 1.42 H Est Cr Clr Drug Dosing 41.0 Est GFR ( Amer) 52.2 Est GFR (Non-Af Amer) 45.0 BUN/Creatinine Ratio 14.1 Glucose 98 Calcium 7.9 L Phosphorus 1.8 L Albumin 3.0 L PG Care Time/CCT Total # of Minutes Spent Total Time Spent with Patient: Total time spent is greater than 50% in coordination of care (as documented) at patient's floor/unit and/or counseling patient: Coding Level of Care Code 60868 SUB INP/OBS CARE 3/50MIN Diagnoses Bacteremia R78.81 Acute UTI N39.0 PAF (paroxysmal atrial fibrillation) I48.0 Benign prostatic hyperplasia with urinary obstruction N40.1; N13.8 Acute kidney injury N17.9 Elevated troponin R77.8 H/O: CVA (cerebrovascular accident) Z86.73 H/O mechanical aortic valve replacement Z95.2 Chronic kidney disease, stage 3 (moderate) N18.30 History of subarachnoid hemorrhage Z86.79 GERD (gastroesophageal reflux disease) K21.9 Hyperlipidemia E78.5 Hypertension I10 Left thigh pain M79.652 Abdominal distension R14.0
[2023-07-06] MEDS: TAMSULOSIN HCL 0.4 MG CAP PO SCH (21:32)
[2023-07-06] MEDS: DICLOFENAC SOD 1% GEL 100 GM TUBE EXT SCH (21:50)
[2023-07-06] MEDS: POT PHOSPHATE MONOBASIC W/ SOD TAB PO SCH (21:50)
[2023-07-07 06:41] LABS: Hematocrit (blood only) 30.4 % (42.0-52.0); Mean Corpuscular Hemoglobin 30.9 pg (25.0-34.0); Mean Corpuscular Hgb Conc 32.9 g/dL (32.0-36.0); Mean Corpuscular Volume 93.8 fL (80.0-100.0); Mean Platelet Volume 11.7 fL (9.4-12.4); Platelet Count 151 K/uL (130-400); RDW Coefficient of Variation 13.9 % (11.5-14.5); RDW Standard Deviation 47.9 fL (36.4-46.3); Red Blood Count 3.24 M/uL (4.70-6.10); White Blood Count 8.32 K/ul (4.8-10.8)
[2023-07-07 07:00] LABS: BUN Creatinine Ratio 14.6 (10-20); Creatinine Clr Calc Pharmacy 40.5 ml/min; Est GFR (African American) 51.3 ml/min; Est GFR (Non-African American) 44.3 ml/min; Potassium 3.8 mmol/L (3.5-5.1)
[2023-07-07] MEDS: CIPROFLOXACIN / D5W 400 MG/200 ML BAG IV SCH ×2 (07:36→20:32)
[2023-07-07] MEDS: POT PHOSPHATE MONOBASIC W/ SOD TAB PO SCH ×4 (08:25→20:38)
[2023-07-07] MEDS: DOCUSATE SODIUM 100 MG CAP PO SCH ×2 (08:25→20:38)
[2023-07-07] MEDS: DICLOFENAC SOD 1% GEL 100 GM TUBE EXT SCH ×4 (08:25→20:38)
[2023-07-07] MEDS: FINASTERIDE 5 MG TAB PO SCH (08:26)
[2023-07-07] MEDS: ROSUVASTATIN CALCIUM 20 MG TAB PO SCH (08:26)
[2023-07-07] MEDS: FOLIC ACID 1 MG TAB PO SCH (08:27)
[2023-07-07] MEDS: ADVANCED PROBIOTIC 1250 MG CAPSULE PO SCH (08:27)
--- NOTE | 2023-07-07 08:45 | Hospitalist Progress Note ---
Date of Service July 07, 2023 Assessment & Plan (1) Bacteremia: Plan: 2nd to ecoli. sepsis due to E Coi source - urine. initially on zosyn - now IV cipro. will ultimately be able to take cipro PO to cover both the urine & blood. blood cultures are gram-negative bacteremia will need to complete 7 days last dose will be 07/12 illness consideration of prostatitis and no expanded on the way out to 07/19 bacteremia improving / resolving. (2) Acute UTI: Plan: 2nd ecoli. likely due to BPH with LUTS. (3) Benign prostatic hyperplasia with urinary obstruction: Plan: cont flomax. added finasteride 5mg daily due to obstruction. cont yee. would keep yee at least 7-10 days. (4) Acute kidney injury: Plan: IMPROVING 2nd to sepsis-associated ATN returns to chronic kidney disease stage III (5) Elevated troponin: Plan: HS trop minimally elevated (70s) this is 2nd to myocardial demand ischemia no evidence of ACS (6) H/O: CVA (cerebrovascular accident): Plan: with resulting left-sided hemiparesis cont coumadin, INR is 2.8 on 07/06/2023 PT, OT while here (7) H/O mechanical aortic valve replacement: Plan: echo findings noted; adequate AV function EF preserved INR goal 2.5 to 3.5 INR now 2.8 cont usual coumadin dosing daily INR while here (8) Left thigh pain: Plan: IT band tendonitis due to muscle stiffness/rigidity/weakness from prior stroke? denies any back pain thus referred, radicular pain not suspected L hip x-rays without any OA surprisingly L knee x-rays with mild OA no evidence of trochanteric bursitis treat symptomatically voltaren gel qid PT, OT (9) Abdominal distension: Plan: KUB x-ray without impaction or severe constipation he is very sedentary and in bed or chair most days mild gaseous distension (10) PAF (paroxysmal atrial fibrillation): Plan: echocardiogram shows preserved EF mechanical aortic Prosthesis is not well visualized. Doppler is adequate. Pulmonary hypertension is mild is on chronic digoxin with acceptable level earlier this stay converted back to NSR last pm cont coumadin cont digoxin could consider low-dose metoprolol tartrate for additional rate control in the event he goes back into afib (rates were 110-130 by report) stress of his illness likely cause of the PAF check TSH in am Plan DVT proph - coumadin PT/OT Admission and Anticipated Discharge Date Admission Date: July 04, 2023 Subjective Patient has no complaints or problems he absolutely wants to go home he has pre-existing left hemiparesis from stroke but feels he can return to home as he is been living like this for the last 4 years Physical Exam Physical Exam: awake alert and appropriate. Left hemiparesis exist. He has good right-sided strength. His cardiac exam is regular lungs are clear abdomen NABS soft and nontender Results & Data Results & Data Vital Signs (Past 12 Hours) Vital Signs Temp Pulse Pulse Resp BP Pulse Ox O2 Del Method 07/07/23 07:51 57 L 07/07/23 07:21 98.2 F 78 20 152/83 H 94 Room Air 07/07/23 03:21 98.2 F 86 18 111/72 95 Room Air 07/06/23 23:27 75 07/06/23 22:27 99.1 F 79 18 127/80 95 Room Air Laboratory Results reviewed CBC reviewed chemistry PG Care Time/CCT Total # of Minutes Spent Total Time Spent with Patient: Total time spent is greater than 50% in coordination of care (as documented) at patient's floor/unit and/or counseling patient: Coding Level of Care Code 27349 SUB INP/OBS CARE 2/35MIN Diagnoses Bacteremia R78.81 Acute UTI N39.0 Benign prostatic hyperplasia with urinary obstruction N40.1; N13.8 Acute kidney injury N17.9 Elevated troponin R77.8 H/O: CVA (cerebrovascular accident) Z86.73 H/O mechanical aortic valve replacement Z95.2 Left thigh pain M79.652 Abdominal distension R14.0 PAF (paroxysmal atrial fibrillation) I48.0
[2023-07-07] MEDS: CEROVITE ADV FORMULA TAB PO SCH (09:32)
--- NOTE | 2023-07-07 13:30 | Electrocardiogram Report ---
Test Reason : Blood Pressure : / mmHG Vent. Rate : 090 BPM Atrial Rate : 090 BPM P-R Int : 172 ms QRS Dur : 102 ms QT Int : 370 ms P-R-T Axes : 056 -17 012 degrees QTc Int : 452 ms Sinus rhythm with Premature atrial complexes Left ventricular hypertrophy with repolarization abnormality Abnormal ECG When compared with ECG of 05-JUL-2023 22:08, (unconfirmed) Sinus rhythm has replaced Atrial fibrillation T wave inversion no longer evident in Lateral leads Confirmed by Edwin Cavazos ([id number]) on 07/07/2023 1:30:13 PM Referred By: REFERRED SELF Confirmed By:Dimitris Cavazos
[2023-07-07] MEDS: WARFARIN SOD 5 MG TAB PO SCH (16:37)
[2023-07-07] MEDS: DIGOXIN 0.125 MG TAB PO SCH (16:37)
[2023-07-07] MEDS: TAMSULOSIN HCL 0.4 MG CAP PO SCH (20:38)
[2023-07-08 07:41] LABS: BUN Creatinine Ratio 16.1 (10-20); Creatinine Clr Calc Pharmacy 37.2 ml/min; Est GFR (African American) 51.8 ml/min; Est GFR (Non-African American) 44.7 ml/min; Magnesium 2.1 mg/dl (1.7-2.4)
[2023-07-08 07:47] LABS: INR 2.9 (0.9-1.1)
[2023-07-08] MEDS: POT PHOSPHATE MONOBASIC W/ SOD TAB PO SCH ×4 (08:41→19:55)
[2023-07-08] MEDS: FOLIC ACID 1 MG TAB PO SCH (08:42)
[2023-07-08] MEDS: CEROVITE ADV FORMULA TAB PO SCH (08:42)
[2023-07-08] MEDS: DOCUSATE SODIUM 100 MG CAP PO SCH ×2 (08:42→19:55)
[2023-07-08] MEDS: ADVANCED PROBIOTIC 1250 MG CAPSULE PO SCH (08:43)
[2023-07-08] MEDS: FINASTERIDE 5 MG TAB PO SCH (08:44)
[2023-07-08] MEDS: ROSUVASTATIN CALCIUM 20 MG TAB PO SCH (08:45)
[2023-07-08] MEDS: DICLOFENAC SOD 1% GEL 100 GM TUBE EXT SCH ×4 (08:46→19:56)
[2023-07-08] MEDS: CIPROFLOXACIN / D5W 400 MG/200 ML BAG IV SCH ×2 (08:46→19:55)
[2023-07-08] MEDS: DIGOXIN 0.125 MG TAB PO SCH (16:49)
[2023-07-08] MEDS: WARFARIN SOD 5 MG TAB PO SCH (16:49)
[2023-07-08] MEDS: TAMSULOSIN HCL 0.4 MG CAP PO SCH (19:55)
--- NOTE | 2023-07-08 22:20 | Hospitalist Progress Note ---
Date of Service July 08, 2023 Assessment & Plan (1) Bacteremia: Plan: 2nd to ecoli. sepsis due to E Coi source - urine. initially on zosyn - now IV cipro. will ultimately be able to take cipro PO to cover both the urine & blood. blood cultures are gram-negative bacteremia will need to complete 7 days last dose will be 07/12 illness consideration of prostatitis and no expanded on the way out to 07/19 bacteremia improving / resolving. Patient will be discharged tomorrow on PO antibiotics. (2) Acute UTI: Plan: 2nd ecoli. likely due to BPH with LUTS. (3) Benign prostatic hyperplasia with urinary obstruction: Plan: cont flomax. added finasteride 5mg daily due to obstruction. cont yee. would keep yee at least 7-10 days. (4) Acute kidney injury: Plan: IMPROVING 2nd to sepsis-associated ATN returns to chronic kidney disease stage III (5) Elevated troponin: Plan: HS trop minimally elevated (70s) this is 2nd to myocardial demand ischemia no evidence of ACS (6) H/O: CVA (cerebrovascular accident): Plan: with resulting left-sided hemiparesis cont coumadin, INR is 2.8 on 07/06/2023 PT, OT while here (7) H/O mechanical aortic valve replacement: Plan: echo findings noted; adequate AV function EF preserved INR goal 2.5 to 3.5 INR now 2.8 cont usual coumadin dosing daily INR while here (8) Left thigh pain: Plan: IT band tendonitis due to muscle stiffness/rigidity/weakness from prior stroke? denies any back pain thus referred, radicular pain not suspected L hip x-rays without any OA surprisingly L knee x-rays with mild OA no evidence of trochanteric bursitis treat symptomatically voltaren gel qid PT, OT (9) Abdominal distension: Plan: KUB x-ray without impaction or severe constipation he is very sedentary and in bed or chair most days mild gaseous distension (10) PAF (paroxysmal atrial fibrillation): Plan: echocardiogram shows preserved EF mechanical aortic Prosthesis is not well visualized. Doppler is adequate. Pulmonary hypertension is mild is on chronic digoxin with acceptable level earlier this stay converted back to NSR last pm cont coumadin cont digoxin could consider low-dose metoprolol tartrate for additional rate control in the event he goes back into afib (rates were 110-130 by report) stress of his illness likely cause of the PAF check TSH in am Plan DVT proph - coumadin PT/OT Admission and Anticipated Discharge Date Admission Date: July 04, 2023 Subjective 82 yo male reports feeling well. Review of Systems Review of Systems: All systems reviewed & are unremarkable except as noted in HPI & below Physical Exam Physical Exam: Gen - NAD, comfortable, looks well, very animated today HENT - hearing better today - has hearing aids; MMM; no thrush Neck - no JVD Heart - mechanical valve closure sound, s1 s2, no murmur; rate <100 Lungs - CTA b/l Abd - soft NT BS+ Ext - pulses 2+ b/l, no edema Results & Data Results & Data Vital Signs (Past 12 Hours) Vital Signs Temp Pulse Pulse Resp BP Pulse Ox O2 Del Method 07/08/23 19:24 36.9 C 77 18 148/87 H 96 Room Air 07/08/23 16:11 36.6 C 68 18 129/75 95 Room Air 07/08/23 16:49 76 07/08/23 15:41 76 07/08/23 10:59 36.7 C 88 19 135/81 95 Room Air PG Care Time/CCT Total # of Minutes Spent Total Time Spent with Patient: Total time spent is greater than 50% in coordination of care (as documented) at patient's floor/unit and/or counseling patient: Coding Level of Care Code 63773 SUB INP/OBS CARE 2/35MIN Diagnoses Bacteremia R78.81 Acute UTI N39.0 Benign prostatic hyperplasia with urinary obstruction N40.1; N13.8 Acute kidney injury N17.9 Elevated troponin R77.8 H/O: CVA (cerebrovascular accident) Z86.73 H/O mechanical aortic valve replacement Z95.2 Left thigh pain M79.652 Abdominal distension R14.0 PAF (paroxysmal atrial fibrillation) I48.0
[2023-07-09 06:32] LABS: BUN Creatinine Ratio 16.4 (10-20); Calcium 7.9 mg/dl (8.6-10.3); Creatinine Clr Calc Pharmacy 36.4 ml/min; Est GFR (African American) 50.5 ml/min; Est GFR (Non-African American) 43.5 ml/min; Magnesium 2.1 mg/dl (1.7-2.4); Potassium 3.9 mmol/L (3.5-5.1)
[2023-07-09 07:24] LABS: INR 3.7 (0.9-1.1); Prothrombin Time 36.9 Seconds (9.0-12.0)
[2023-07-09] MEDS: DICLOFENAC SOD 1% GEL 100 GM TUBE EXT SCH ×3 (08:22→16:01)
[2023-07-09] MEDS: CIPROFLOXACIN / D5W 400 MG/200 ML BAG IV SCH (08:22)
[2023-07-09] MEDS: POT PHOSPHATE MONOBASIC W/ SOD TAB PO SCH ×3 (08:23→16:01)
[2023-07-09] MEDS: ROSUVASTATIN CALCIUM 20 MG TAB PO SCH (08:23)
[2023-07-09] MEDS: DOCUSATE SODIUM 100 MG CAP PO SCH (08:23)
[2023-07-09] MEDS: FOLIC ACID 1 MG TAB PO SCH (08:23)
[2023-07-09] MEDS: ADVANCED PROBIOTIC 1250 MG CAPSULE PO SCH (08:23)
[2023-07-09] MEDS: FINASTERIDE 5 MG TAB PO SCH (08:23)
[2023-07-09] MEDS: CEROVITE ADV FORMULA TAB PO SCH (08:23)
--- NOTE | 2023-07-09 15:49 | Discharge Summary ---
Date of Service July 09, 2023 Admission HPI Per Admitting Provider The patient is a 82-year-old male with a past medical history including CVA with residual left hemiparesis, mechanical aortic valve replacement, CKD stage III, history of subarachnoid hemorrhage, RLS, GERD, hyperlipidemia, hypertension, and BPH with LUTS. He presents with symptoms that are similar to previous urinary tract infections with outflow tract obstruction. He had a Yee catheter placed in the emergency department, with significant relief in symptoms. He reports that he had more difficulty walking with his hemiwalker at home due to generalized weakness. Principal Diagnosis bacteremia Discharge Exam Gen - NAD, comfortable, looks well, very animated today HENT - hearing better today - has hearing aids; MMM; no thrush Neck - no JVD Heart - mechanical valve closure sound, s1 s2, no murmur; rate <100 Lungs - CTA b/l Abd - soft NT BS+ Ext - pulses 2+ b/l, no edema Discharge Data Allergies Allergy/AdvReac Type Severity Reaction Status Date / Time No Known Allergies Allergy Unverified 07/04/23 01:41 Consultations 07/03/23 23:35 ED Decision to Admit Stat Ordered Studies 07/03/23 22:14 CT abd pelvis wo con Stat 07/04/23 21:16 US venous duplex arm [US venous doppler UE RT] Stat Hospital Course (1) Bacteremia: 2nd to ecoli. sepsis due to E Coi source - urine. initially on zosyn - now IV cipro. will ultimately be able to take cipro PO to cover both the urine & blood. blood cultures are gram-negative bacteremia will need to complete 7 days last dose will be 07/12 bacteremia improving / resolving. Patient will be discharged on PO antibiotics. (2) Acute UTI: 2nd ecoli. likely due to BPH with LUTS. (3) Benign prostatic hyperplasia with urinary obstruction: cont flomax. added finasteride 5mg daily due to obstruction. cont yee. would keep yee at least 7-10 days. recommend followup with Urology as an outpatient, recommend eval for prostatitis (4) Acute kidney injury: IMPROVING 2nd to sepsis-associated ATN returns to chronic kidney disease stage III (5) Elevated troponin: HS trop minimally elevated (70s) this is 2nd to myocardial demand ischemia no evidence of ACS (6) H/O: CVA (cerebrovascular accident): with resulting left-sided hemiparesis cont coumadin, INR is 2.8 on 07/06/2023 (7) H/O mechanical aortic valve replacement: echo findings noted; adequate AV function EF preserved INR goal 2.5 to 3.5 (8) Left thigh pain: IT band tendonitis due to muscle stiffness/rigidity/weakness from prior stroke? denies any back pain thus referred, radicular pain not suspected L hip x-rays without any OA surprisingly L knee x-rays with mild OA no evidence of trochanteric bursitis treat symptomatically voltaren gel qid PT, OT (9) Abdominal distension: KUB x-ray without impaction or severe constipation he is very sedentary and in bed or chair most days mild gaseous distension (10) PAF (paroxysmal atrial fibrillation): echocardiogram shows preserved EF mechanical aortic Prosthesis is not well visualized. Doppler is adequate. Pulmonary hypertension is mild is on chronic digoxin with acceptable level earlier this stay converted back to NSR last pm cont coumadin cont digoxin Total Time Total Time Spent Total Time Spent (In Minutes): 35 Discharge Plan Discharge Items Patient Disposition: Home - Home Health Services Reason For Visit: NSTEMI, SEPSIS DUE TO UTI Discharge Diagnosis: NSTEMI Activity: Resume your previous activity Non-emergency contact: Primary Care Provider Call non-emergency contact if: you have any medication questions Follow-up/Referrals: Julia Bravo DO [Primary Care Provider] - 07/22/23 9:20 am (Hospital follow up ) Jory Zhong PA [Physician Interventional Physician] - 07/16/23 10:30 am (Urology new pt appointment-- This appointment will be approximately 1- 1.5 hrs- you will see the provider and have a voiding trial. ) Diet: Heart Healthy Addtl Attending Provider Instructions: Continue antibiotics until final dose. Take next dose tonight. Followup with Urology to get catheter removed Pending Studies at Discharge: No Stand-Alone Forms: My [employer], Smoking Cessation Medications and DC Order Prescriptions: New Phospha 250 Neutral 250 mg Tablet 1 tab PO QID 4 Days Qty: 16 0RF finasteride 5 mg Tablet 5 mg PO QAM Qty: 30 0RF Advanced Probiotic 625 mg (10 billion cell) Capsule 2 cap PO DAILY Qty: 30 0RF ciprofloxacin HCl 500 mg tablet 500 mg PO BID Qty: 8 0RF Continued docusate sodium 100 mg capsule 100 mg PO BID Qty: 180 1RF folic acid 1 mg tablet 1 mg PO DAILY Qty: 90 1RF digoxin 125 mcg (0.125 mg) tablet 125 mcg PO DAILY Qty: 90 1RF tamsulosin 0.4 mg capsule 0.4 mg PO .QHS Qty: 90 1RF rosuvastatin 40 mg tablet 40 mg PO DAILY Qty: 90 1RF PreserVision AREDS-2 [id number] zl-cusi-gj-mg Capsule 1 tab PO BID warfarin 5 mg tablet 5 mg PO DIRECTED Rx Instructions: As direcred by anti-coagulation clinic. Discontinued lisinopril 2.5 mg tablet 2.5 mg PO DAILY Qty: 90 1RF amoxicillin-pot clavulanate 875-125 mg tablet 1 tab PO BID Qty: 8 0RF Discharge Orders: Discharge Order (Routine); Ordered 07/09/23 Ordered By: Donaldo Mayberry/Other Patient Handouts: Urinary Catheter Bag Empty Clean, Indwelling Urinary Catheter Dc, Yee Catheter Male Ch Admission Data Admit Date/Time: 07/04/23 01:48 Attending Provider: Donaldo Moore Admit Provider: Bobo Aguayo Primary Care Provider: Julia Bravo Other Providers: Bobo Aguayo ; Arthur Nugent ; Naveen Price [facility] Other Interventions: Discharge Summary Assessment (RN) Last Done: 07/09/23 15:34 Coding Level of Care Code 69803 INP/OBS DISCH >30 MIN Diagnoses Bacteremia R78.81 Acute UTI N39.0 Benign prostatic hyperplasia with urinary obstruction N40.1; N13.8 Acute kidney injury N17.9 Elevated troponin R77.8 H/O: CVA (cerebrovascular accident) Z86.73 H/O mechanical aortic valve replacement Z95.2 Left thigh pain M79.652 Abdominal distension R14.0 PAF (paroxysmal atrial fibrillation) I48.0
[2023-07-09] MEDS: DIGOXIN 0.125 MG TAB PO SCH (16:01)
== END 2023-07-09 18:24 | disposition home health service (06) | DRG 871 ==
LOC: ED 20:46 → 2S 07-04 01:48 → SUATTDRO 07-04 01:48 → 2S 07-04 02:47

== ENCOUNTER 2023-08-27 10:55 | Inpatient (IN) ==
--- NOTE | 2023-08-27 11:06 | Emergency Department Note ---
Impression & Plan Generalized weakness ED Provider Note HISTORY OF PRESENT ILLNESS: Patient is an 82-year-old male presenting with worsening left-sided weakness. Patient reports he had a stroke 4 and half years ago resulted in deficits on his left side. He was being evaluated by his in-home physical therapist today who thought that his left side was significantly weaker than previously, calling 911 and prompting evaluation in the emergency department. Patient reports that his worsening weakness has been ongoing for over a week. He states that he has been having difficulties getting up and transferring from his wheelchair secondary to weakness, most notably in the left lower extremity. He states that 2 weeks ago he was treated for urinary tract infection. He denies any chest pain or shortness of breath. Denies any fevers. Denies any headache or changes in vision. ROS: as above PHYSICAL EXAM: Constitutional: Patient appears in no acute distress. HENT: Head: Normocephalic and atraumatic. Eyes: EOMI, PERRL Mouth/Throat: Mucous membranes moist. Neck: Trachea midline. Neck supple. Cardiovascular: Tachycardic with regular rhythm. No murmurs, rubs or gallops. Intact distal pulses. Pulmonary/Chest: No respiratory distress. Breath sounds clear and equal bilaterally. No wheezes or rales.. Abdominal: Abdomen soft, no tenderness, rebound or guarding. Musculoskeletal: Contracture of the left upper extremity. Skin: Warm and dry. No rash, erythema, pallor or cyanosis Psychiatric: Appropriate mood and affect for situation. Neurological: Alert and keenly responsive. Facies symmetric. Able to raise eyebrows, close eyes, smile, puff mouth, stick out tongue, move tongue left and right and raise palate symmetrically. Able to shrug shoulders. PERRLA. SILT to forehead below eye and at jawline. Can hear soft nose bilaterally. Strength 5/5 in bilateral upper and lower extremities. SILT throughout bilateral upper and lower extremities. MDM: - Vitals signs showed hypertension. - History obtained via patient. Patient presents with generalized weakness. Patient had a stroke 4 years ago and has left-sided hemiparesis. He states he was evaluated by his in-home physical therapist today and they recommended he be evaluated in the emergency department secondary to his profound weakness. Patient reportedly has been having progressively worsening weakness for the last week. He has been having difficulties getting up and transferring to his wheelchair. He states 2 weeks ago he was treated for UTI. Denies any chest pain or shortness of breath. Denies any fevers - Chronic conditions affecting care: CVA; HTN; HLD; left hemiparesis; BPH - Differential diagnoses include, but are not limited to: Pneumonia; CVA; intracranial hemorrhage; ACS; UTI - Order placed for continuous cardiac monitoring. At this time, monitor showed rate of 93 bpm with normal sinus rhythm, per my interpretation. - External medical records reviewed. EMS run sheet was reviewed. Patient was vitally stable in route. No medications were given prehospital. - EKG reviewed by myself showed normal sinus rhythm. Rate 110 bpm. QTc 525. No acute ischemic changes. Noted to have occasional PVCs and a right bundle branch block - Laboratory workup interpreted by myself showed normal WBC; stable electrolytes; normal troponin; normal magnesium - CXR negative for pneumonia, per my interpretation. - CT head showed stable mild ventricular dilation. - Discussed results with patient and I also called his , who is the patient's primary engineering mathematician. reports for the last week the patient has been laid up in bed secondary to being too weak to help transfer him. She reports normally he is able to pull himself upright in bed and stand up and transfer to his wheelchair. She states in the last week he has been too weak to do that. She states that last night she had to call their neighbor who is a agricultural real estate agent to help lift the patient out of bed to go to the bathroom. reports the patient was complaining of left hip pain and left upper leg pain through most of the week. No reported falls. She also states that the patient was complaining of some swelling in his left leg. - Xray pelvis with left hip ordered. - US DVT LLE ordered. - Discussion was had with social security benefits interviewer about patient's case and need for admission - Hospitalist consulted for admission for PT/OT assessment - Patient admitted to [facility] Hospitalist service for further evaluation and management. ASSESSMENT AND PLAN: Diagnosis: Generalized weakness Plan: Admit Past Med/Surg History Medical History THIAGO (acute kidney injury) Bacteremia (07/2023) Benign prostatic hyperplasia with urinary obstruction Chronic kidney disease, stage 3 (moderate) GERD (gastroesophageal reflux disease) H/O: CVA (cerebrovascular accident) (01/2019) History of subarachnoid hemorrhage (01/2019) Hyperlipidemia Hypertension Left hemiparesis RLS (restless legs syndrome) Rupture of left long head biceps tendon Sepsis due to urinary tract infection (07/2023) Surgical History H/O mechanical aortic valve replacement (1984) S/P tonsillectomy Family History Brother Myocardial infarction Denies family history of Ovarian cancer Prostate cancer Breast cancer Colorectal cancer Social History Smoking Status: Former smoker Tobacco Type: Cigarettes Age Quit Using Tobacco: 30; Do You Dip or Chew Tobacco: No; Hx Alcohol Use: No Hx Substance Use: No Preferred Language: Luxembourgish Communication Ability: Effective Visual Impairment: No Limitations Hearing Ability: Use of Hearing Aid Glass Beveller Required: No Beliefs That Will Affect Care: None marital status: Current Living Situation: Spouse current occupational status: retired Feels Safe at Home: Yes Diet: regular Diet Comment: regular caffeine: Yes during the past year weight has: remained stable Dental Care, Regularly: No Physical Activity Frequency: Other Physical Activity Frequency Comment: PHYSICAL THERAPY DUE TO STROKE Seatbelt Use: always Sunscreen Use: Yes Assistive Devices: Cane, Walker, Wheelchair and Other Allergies Allergies Allergy/AdvReac Type Severity Reaction Status Date / Time No Known Allergies Allergy Unverified 07/22/23 09:02 Home Meds Home Medications Medication Instructions Recorded Confirmed vit C 250 mg-vit E 90 mg-zinc 40 1 tab PO BID 02/07/19 07/22/23 mg-copper 1 kq-qevvtb-actart capsule (PreserVision AREDS-2) warfarin 5 mg tablet 5 mg PO DIRECTED 07/04/23 08/27/23 lisinopril 2.5 mg tablet 2.5 mg PO DAILY 08/27/23 08/27/23 metoprolol succinate 25 mg 12.5 mg PO QAM 08/27/23 08/27/23 tablet,extended release 24 hr Previous Rx's Medication Instructions Recorded rosuvastatin 40 mg tablet 40 mg PO DAILY #90 tabs 06/11/22 docusate sodium 100 mg capsule 100 mg PO BID #180 caps 08/20/22 folic acid 1 mg tablet 1 mg PO DAILY #90 tabs 02/15/23 digoxin 125 mcg (0.125 mg) tablet 125 mcg PO DAILY #90 tabs 06/07/23 tamsulosin 0.4 mg capsule 0.4 mg PO .QHS #90 caps 06/22/23 L.acidop,casei,lactis,rham-B.lact,meche 2 cap PO DAILY #30 caps 07/09/23 625 mg (10 billion cell) capsule (Advanced Probiotic) finasteride 5 mg tablet 5 mg PO QAM #90 tabs 07/22/23 Results & Data (ED) Vital Signs Vital Signs - 24 hr 08/27/23 11:00 08/27/23 12:16 08/27/23 12:35 Temperature 36.6 C Temperature Source Oral Pulse Rate 112 H 93 H Pulse Rate [Apical] 96 H Pulse Rhythm Regular Pulse Strength Normal Respiratory Rate 20 16 Respiratory Effort / Characteristics Non-Labored Respiratory Depth Normal Respiratory Pattern Regular Blood Pressure 147/78 H Blood Pressure [Right Arm] 123/80 Blood Pressure Mean 101 Blood Pressure Mean [Right Arm] 94 Blood Pressure Position Lying Pulse Oximetry 96 95 Oxygen Delivery Method Room Air Room Air Sepsis Recent Fever Within 48 Hours No Sepsis New/Unexplained Change in Mental Status N/A Sepsis Action Taken by Nursing No Action Required 08/27/23 13:09 Temperature Temperature Source Pulse Rate Pulse Rate [Apical] Pulse Rhythm Pulse Strength Respiratory Rate 16 Respiratory Effort / Characteristics Respiratory Depth Normal Respiratory Pattern Blood Pressure Blood Pressure [Right Arm] 150/96 H Blood Pressure Mean Blood Pressure Mean [Right Arm] 114 Blood Pressure Position Pulse Oximetry 100 Oxygen Delivery Method Room Air Sepsis Recent Fever Within 48 Hours Sepsis New/Unexplained Change in Mental Status Sepsis Action Taken by Nursing Laboratory Data 08/27/23 11:13 08/27/23 11:13 Lab Results 08/27/23 08/27/23 08/27/23 Range/Units 11:13 11:13 11:13 WBC 9.60 (4.8-10.8) K/ul RBC 4.23 L (4.70-6.10) M/uL Hgb 12.9 L (14.0-18.0) g/dl Hct 39.9 L (42.0-52.0) % MCV 94.3 (80.0-100.0) fL MCH 30.5 (25.0-34.0) pg MCHC 32.3 (32.0-36.0) g/dL RDW Std Deviation 49.5 H (36.4-46.3) fL RDW Coeff of Ayse 14.3 (11.5-14.5) % Plt Count 186 (130-400) K/uL MPV 12.0 (9.4-12.4) fL Immature Gran % (Auto) 0.3 % Neut % (Auto) 53.3 % Lymph % (Auto) 31.0 % [place] % (Auto) 11.3 % Eos % (Auto) 3.5 % Baso % (Auto) 0.6 % Neut # (Auto) 5.11 (1.40-6.50) K/uL Lymph # (Auto) 2.98 (1.20-3.40) K/uL [place] # (Auto) 1.08 H (0.11-0.59) K/uL Eos # (Auto) 0.34 (0.00-0.50) K/uL Baso # (Auto) 0.06 (0.00-0.20) K/uL Immature Gran # (Auto) 0.03 (0.01-0.20) K/uL PT 19.1 H (9.0-12.0) Seconds INR 1.8 H (0.9-1.1) Sodium 139 (136-145) mmol/L Potassium 3.9 (3.5-5.1) mmol/L Chloride 110 H (98-107) mmol/L Carbon Dioxide 24 (21-32) mmol/L Anion Gap 5 (3-11) BUN 18 (6-23) mg/dl Creatinine 1.14 (0.6-1.4) mg/dl Est Cr Clr Drug Dosing 46.7 ml/min Est GFR ( Amer) 68.1 ml/min Est GFR (Non-Af Amer) 58.7 ml/min BUN/Creatinine Ratio 15.8 (10-20) Glucose 114 H (70-99(Fasting)) mg/dl Calcium 8.7 (8.6-10.3) mg/dl Magnesium 2.1 (1.7-2.4) mg/dl Total Bilirubin 0.4 (0.2-1.0) mg/dl AST 24 (13-39) U/L ALT 32 (7-52) U/L Alkaline Phosphatase 74 (34-104) U/L Troponin I High Sens 11.4 (0-20) pg/ml Total Protein 6.7 (6.0-8.3) gm/dl Albumin 3.6 (3.4-5.0) gm/dl Globulin 3.1 (2.5-4.0) gm/dl Albumin/Globulin Ratio 1.2 (0.9-2) Imaging Data Radiologist's Impression: Chest X-Ray 08/27/23 11:03 XR chest 1V portable CLINICAL HISTORY: weakness TECHNIQUE: Single frontal radiograph of the chest was obtained. Comparison: None available at the time of this dictation. FINDINGS: Median sternotomy wires are seen. The cardiomediastinal silhouette is normal. The lungs are clear. No evidence of pleural effusion or pneumothorax. IMPRESSION: No acute chest disease. ACT 112: Negative or not required by law. Electronically signed by: Silvano Campos M.D. 08/27/2023 11:[address] 08/27/23 11:03 CT OF THE HEAD WITHOUT CONTRAST CLINICAL HISTORY: left-sided weakness COMPARISON STUDY: Head CT February 17, 2019. CT DOSE: 2199.31 mGy.cm TECHNIQUE: Helical axial images of the head were obtained without IV contrast. Automated exposure control was utilized for the study. A dose lowering technique was utilized adhering to the principles of ALARA. FINDINGS: This study is mildly compromised by motion artifact. Ventricular dilatation is similar to prior exam. Basal cisterns are patent. There are no extra axial collections. 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 This is at site of hemorrhage on CT of February 07, 2019. There is also encephalomalacia within the cerebellar vermis. There are no findings to suggest acute dural sinus thrombosis or acute territorial infarct. No calvarial fractures are identified. IMPRESSION: 1. No acute intracranial findings. Exam mildly compromised by motion artifact. 2. Right frontoparietal and cerebellar encephalomalacia. 3. Stable mild ventricular dilatation. This is likely due to central atrophy. Although less likely, normal pressure hydrocephalus could appear similar. ACT 112: Negative or not required by law. Electronically signed by: Cory Guajardo M.D. 08/27/2023 12:05 PM Discharge Plan Visit Data Chief Complaint: Stroke/CVA Symptoms Stated Complaint: STROKE SX ED Provider: Romelia Munson Discharge Problem: Generalized weakness Forms Stand Alone Forms: My [facility] Prescriptions Prescriptions: No Action docusate sodium 100 mg capsule 100 mg PO BID Qty: 180 1RF folic acid 1 mg tablet 1 mg PO DAILY Qty: 90 1RF digoxin 125 mcg (0.125 mg) tablet 125 mcg PO DAILY Qty: 90 1RF tamsulosin 0.4 mg capsule 0.4 mg PO .QHS Qty: 90 1RF rosuvastatin 40 mg tablet 40 mg PO DAILY Qty: 90 1RF finasteride 5 mg tablet 5 mg PO QAM Qty: 90 1RF PreserVision AREDS-2 [id number] yq-vwih-ds-mg Capsule 1 tab PO BID Rx Instructions: unable to verify, not on list from pharmacy warfarin 5 mg tablet 5 mg PO DIRECTED Rx Instructions: As direcred by anti-coagulation clinic. Advanced Probiotic 625 mg (10 billion cell) Capsule 2 cap PO DAILY Qty: 30 0RF metoprolol succinate 25 mg tablet extended release 24 hr 12.5 mg PO QAM lisinopril 2.5 mg tablet 2.5 mg PO DAILY Referrals Referrals: Julia Bravo DO [Primary Care Provider] -
--- NOTE | 2023-08-27 11:30 | XRay Report ---
XR chest 1V portable CLINICAL HISTORY: weakness TECHNIQUE: Single frontal radiograph of the chest was obtained. Comparison: None available at the time of this dictation. FINDINGS: Median sternotomy wires are seen. The cardiomediastinal silhouette is normal. The lungs are clear. No evidence of pleural effusion or pneumothorax. IMPRESSION: No acute chest disease. ACT 112: Negative or not required by law. Electronically signed by: Silvano Campos M.D. 08/27/2023 11:28 AM
[2023-08-27 11:40] LABS: Basophils # (auto) 0.06 K/uL (0.00-0.20); Basophils % (auto) 0.6 %; Eosinophils # (auto) 0.34 K/uL (0.00-0.50); Eosinophils % (auto) 3.5 %; Hematocrit (blood only) 39.9 % (42.0-52.0); Hemoglobin 12.9 g/dl (14.0-18.0); Immature Granulocytes # (auto) 0.03 K/uL (0.01-0.20); Immature Granulocytes % (auto) 0.3 %; Lymphocytes # (auto) 2.98 K/uL (1.20-3.40); Mean Corpuscular Hemoglobin 30.5 pg (25.0-34.0); Mean Corpuscular Hgb Conc 32.3 g/dL (32.0-36.0); Mean Corpuscular Volume 94.3 fL (80.0-100.0); Monocytes # (auto) 1.08 K/uL (0.11-0.59); Monocytes % (auto) 11.3 %; Neutrophils # (auto) 5.11 K/uL (1.40-6.50); Neutrophils % (auto) 53.3 %; Platelet Count 186 K/uL (130-400); RDW Coefficient of Variation 14.3 % (11.5-14.5); RDW Standard Deviation 49.5 fL (36.4-46.3); Red Blood Count 4.23 M/uL (4.70-6.10)
[2023-08-27 12:05] LABS: Albumin Globulin Ratio 1.2 (0.9-2); Albumin Level 3.6 gm/dl (3.4-5.0); BUN Creatinine Ratio 15.8 (10-20); Bilirubin,Total 0.4 mg/dl (0.2-1.0); Calcium 8.7 mg/dl (8.6-10.3); Creatinine Clr Calc Pharmacy 46.7 ml/min; Est GFR (African American) 68.1 ml/min; Est GFR (Non-African American) 58.7 ml/min; Globulin 3.1 gm/dl (2.5-4.0); Magnesium 2.1 mg/dl (1.7-2.4); Potassium 3.9 mmol/L (3.5-5.1); Total Protein 6.7 gm/dl (6.0-8.3)
[2023-08-27 12:07] LABS: INR 1.8 (0.9-1.1); Prothrombin Time 19.1 Seconds (9.0-12.0)
--- NOTE | 2023-08-27 12:07 | CT Scan Report ---
CT OF THE HEAD WITHOUT CONTRAST CLINICAL HISTORY: left-sided weakness COMPARISON STUDY: Head CT February 17, 2019. CT DOSE: 2199.31 mGy.cm TECHNIQUE: Helical axial images of the head were obtained without IV contrast. Automated exposure con trol was utilized for the study. A dose lowering technique was utilized adhering to the principles o f ALARA. FINDINGS: This study is mildly compromised by motion artifact. Ventricular dilatation is similar to p rior exam. Basal cisterns are patent. There are no extra axial collections. Right frontoparietal ence phalomalacia is chronic. This is at site of hemorrhage on CT of February 07, 2019. There is also encephal omalacia within the cerebellar vermis. There are no findings to suggest acute dural sinus thrombosis or acute territorial infarct. No calvarial fractures are identified. IMPRESSION: 1. No acute intracranial findings. Exam mildly compromised by motion artifact. 2. Right frontoparietal and cerebellar encephalomalacia. 3. Stable mild ventricular dilatation. This is likely due to central atrophy. Although less likely, n ormal pressure hydrocephalus could appear similar. ACT 112: Negative or not required by law. Electronically signed by: Cory Guajardo M.D. 08/27/2023 12:05 PM
[2023-08-27 12:10] LABS: Troponin I High Sensitivity 11.4 pg/ml (0-20)
--- NOTE | 2023-08-27 15:08 | History & Physical Report ---
Date of Service August 27, 2023 Assessment & Plan (1) Stroke-like symptoms: Plan: Clinically, acute worsening of left-sided full-body weakness x 1 week In the setting of residual L-sided hemiparalysis from CVA and subarachnoid hemorrhage in [address] today revealed no acute findings, but did reveal mild ventricular dilation "likely due to central atrophy" While NPH cannot be ruled out, this may be more suggestive of hydrocephalus ex vacuo Permissive HTN in the ED Patient reports he has a "metal heart valve"; spoke with MRI and they deemed the mechanical aortic valve safe; photocopied pt's card and added to paper chart Patient declined brain MRI, and MR angio head, as he is nervous his heart valve is not compatible despite reassurance that it is MRI safe Discussed alternative of CTA head/neck with the patient; informed him of potential risks to no further imaging; patient was amenable to getting CTA Head/Neck w/ Echo on 07/04/2023 showed LVEF >70%; no ASD; resolution "did not allow assessment of PFO"; given low probability, we will not repeat echo at this time Keep patient n.p.o. until dysphagia screen; if patient passes screen, AHA diet as tolerated Aspirin held given higher risk of bleeding; on Coumadin; INR 1.8 Fall precautions PT/OT consulted A.m. CBC, BMP, PT/INR, Lipid panel (2) Left leg weakness: Plan: Acute on chronic 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 Digoxin level On warfarin for both mechanical AV and a fib Patient reportedly held warfarin on 08/26; will give 5.0mg today 08/27; INR 1.8 Warfain dosing: INR goal range: 2.0-2.5 T, Th, Sat dosin.5mg All other days: 5.0mg Weekly warfarin total: 27.5mg (5) Hypertension: Plan: BP at 150/96 on time of admission Permissive hypertension in the setting of TIA/CVA rule out Continue metoprolol, Lisinopril (6) BPH (benign prostatic hyperplasia): Plan: Continue tamsulosin (7) Hyperlipidemia: Plan: Continue rosuvastatin Plan [facility]/DNI N.p.o until dysphagia screen, then AHA diet as tolerated VTE PPx: Coumadin History of Present Illness Chief Complaint: Stroke/CVA symptoms Primary Care Provider: Julia Bravo DO Jarrett is an 82-year-old male with PMH of CVA in 2018 with residual L hemiparesis (and spontaneous subarachnoid hemorrhage 01/2019), paroxysmal A-fib, HTN, HLD, GERD, and BPH. He presented via EMS for worsening left-sided weakness x1 week. Physical therapy has noted significantly weaker left side this past week. Patient reports he recently had a UTI, which has resolved. He is normal ly wheelchair bound; PT works with him to ambulate with a kanika-walker. Increased difficulty standing this past week. Patient denies falling. Pain is located at the left knee and hamstring; started last Monday 08/20. Patient also endorses arthritis throughout the left leg. He has been taking Tylenol 2 tabs in the evenings for pain on most days. He rates the pain 10. Patient reports having a Justyna Safia Mechanical Heart valve placed in 1984; will check to see if MRI appropriate. Vitals: Tachycardic at 112 bpm and hypertensive at 147/78 on arrival. ROS: Patient endorses left hamstring pain, left knee pain, intermittent diarrhea x1 (resolved), and intermittent numbness in the LLE. Patient denies fever, chills, difficulty swallowing, CP, pleuritic CP, SOB, abdominal pain, N/V, urinary retention, or burning with urination. Spoke on the phone with patient's (Mary) who says the patient has had 1 week of diarrhea, worsening left hip pain, and trouble getting out of bed. She denies any recent slurred speech or facial droop. Spoke with patient who reported his wishes were to be DNR/DNI Warfain dosing: INR goal range: 2.0-2.5 T, Th, Sat dosin.5mg All other days: 5.0mg Weekly warfarin total: 27.5mg Please see Dr. Covarrubias's attestation for any changes to treatment plan. Allergies Allergy/AdvReac Type Severity Reaction Status Date / Time No Known Allergies Allergy Unverified 07/22/23 09:02 Home Medications Medication Instructions Recorded Confirmed Type vit C 250 mg-vit E 90 mg-zinc 40 1 tab PO BID 02/07/19 07/22/23 History mg-copper 1 pd-dfxlii-uazaqu capsule (PreserVision AREDS-2) rosuvastatin 40 mg tablet 40 mg PO DAILY #90 tabs 06/11/22 08/27/23 Rx docusate sodium 100 mg capsule 100 mg PO BID #180 caps 08/20/22 08/27/23 Rx folic acid 1 mg tablet 1 mg PO DAILY #90 tabs 02/15/23 08/27/23 Rx digoxin 125 mcg (0.125 mg) tablet 125 mcg PO DAILY #90 tabs 06/07/23 08/27/23 Rx tamsulosin 0.4 mg capsule 0.4 mg PO .QHS #90 caps 06/22/23 08/27/23 Rx warfarin 5 mg tablet 5 mg PO DIRECTED 07/04/23 08/27/23 History L.acidop,casei,lactis,rham-B.lact,meche 2 cap PO DAILY #30 caps 07/09/23 08/27/23 Rx 625 mg (10 billion cell) capsule (Advanced Probiotic) finasteride 5 mg tablet 5 mg PO QAM #90 tabs 07/22/23 08/27/23 Rx lisinopril 2.5 mg tablet 2.5 mg PO DAILY 08/27/23 08/27/23 History metoprolol succinate 25 mg 12.5 mg PO QAM 08/27/23 08/27/23 History tablet,extended release 24 hr Past Med/Surg History Medical History (Updated 08/27/23 @ 17:19 by Jah Faria PA-C) THIAGO (acute kidney injury) Bacteremia (07/2023) Benign prostatic hyperplasia with urinary obstruction BPH (benign prostatic hyperplasia) Chronic kidney disease, stage 3 (moderate) GERD (gastroesophageal reflux disease) H/O: CVA (cerebrovascular accident) (01/2019) History of subarachnoid hemorrhage (01/2019) Hyperlipidemia Hypertension Left hemiparesis RLS (restless legs syndrome) Rupture of left long head biceps tendon Sepsis due to urinary tract infection (07/2023) Surgical History H/O mechanical aortic valve replacement (1984) S/P tonsillectomy Family History Brother Myocardial infarction Denies family history of Ovarian cancer Prostate cancer Breast cancer Colorectal cancer Social History Smoking Status: Former smoker Tobacco Type: Cigarettes Age Quit Using Tobacco: 30; Second Hand Exposure: No; Do You Dip or Chew Tobacco: No; Tobacco Cessation Education Requested by Patient: No Hx Alcohol Use: No Hx Substance Use: No Preferred Language: Occitan Communication Ability: Effective Visual Impairment: No Limitations Hearing Ability: Use of Hearing Aid Administrative Director Required: No Beliefs That Will Affect Care: None marital status: Current Living Situation: Spouse current occupational status: retired Other Information That Helps Us Care for You: No Feels Safe at Home: Yes Safety Concerns: Feels Safe At This Time Diet: regular Diet Comment: regular caffeine: Yes during the past year weight has: remained stable Dental Care, Regularly: No Physical Activity Frequency: Other Physical Activity Frequency Comment: PHYSICAL THERAPY DUE TO STROKE Seatbelt Use: always Sunscreen Use: Yes Assistive Devices: Other Assistive Devices Comment: kanika walker Review of Systems Review of Systems: See HPI above Physical Exam Physical Exam: General: patient appears in no acute distress; appears stated age; well- nourished; cooperative HEENT: normocephalic, atraumatic; no scleral icterus; potential strabismus; dry mucus membrane; trachea midline; vision intact; patient is hard of hearing and wears hearing aids in both ears; patient wears dentures Skin: warm, dry without signs of tenting; no cyanosis; no rashes or lesions noted Cardiac: RRR; no new murmurs noted Pulm: no acute respiratory distress; symmetrical chest expansion; clear breath sounds across all lung kevin without adventitious sounds Abdominal: Soft, nontender to palpation; BS present; no ascites; no distention MSK: no tics or fasciculations; no edema noted in the LEs b/l; pulses intact and symmetrical at radial, DP, and PT; patient cannot demonstrate active ROM at left wrist; atrophy of left thigh muscle; LLE is nonerythematous, nontender to palpation Neuro: A&Ox3; no tremors; no focal defects; patient demonstrates ability to wiggle toes (weaker/slower on the left side); mild sensation deficits on LLE; 4 /5 strength in LLE when lifting leg off bed Results & Data Results & Data Vital Signs (Past 12 Hours) Vital Signs Temp Pulse Pulse Resp BP BP Pulse Ox 08/27/23 13:09 16 150/96 H 100 08/27/23 12:35 93 H 08/27/23 12:16 96 H 16 123/80 95 08/27/23 11:00 36.6 C 112 H 20 147/78 H 96 O2 Del Method 08/27/23 13:09 Room Air 08/27/23 12:35 08/27/23 12:16 Room Air 08/27/23 11:00 Room Air Laboratory Results Abnormal lab results 08/27/23 08/27/23 08/27/23 Range/Units 11:13 11:13 11:13 RBC 4.23 L (4.70-6.10) M/uL Hgb 12.9 L (14.0-18.0) g/dl Hct 39.9 L (42.0-52.0) % RDW Std Deviation 49.5 H (36.4-46.3) fL [place] # (Auto) 1.08 H (0.11-0.59) K/uL PT 19.1 H (9.0-12.0) Seconds INR 1.8 H (0.9-1.1) Chloride 110 H (98-107) mmol/L Glucose 114 H (70-99(Fasting)) mg/dl Diagnostic Findings Chest X-Ray 08/27/23 11:03 XR chest 1V portable CLINICAL HISTORY: weakness TECHNIQUE: Single frontal radiograph of the chest was obtained. Comparison: None available at the time of this dictation. FINDINGS: Median sternotomy wires are seen. The cardiomediastinal silhouette is normal. The lungs are clear. No evidence of pleural effusion or pneumothorax. IMPRESSION: No acute chest disease. ACT 112: Negative or not required by law. Electronically signed by: Silvano Campos M.D. 08/27/2023 11:[address] 08/27/23 11:03 CT OF THE HEAD WITHOUT CONTRAST CLINICAL HISTORY: left-sided weakness COMPARISON STUDY: Head CT February 17, 2019. CT DOSE: 2199.31 mGy.cm TECHNIQUE: Helical axial images of the head were obtained without IV contrast. Automated exposure control was utilized for the study. A dose lowering technique was utilized adhering to the principles of ALARA. FINDINGS: This study is mildly compromised by motion artifact. Ventricular dilatation is similar to prior exam. Basal cisterns are patent. There are no extra axial collections. 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 This is at site of hemorrhage on CT of February 07, 2019. There is also encephalomalacia within the cerebellar vermis. There are no findings to suggest acute dural sinus thrombosis or acute territorial infarct. No calvarial fractures are identified. IMPRESSION: 1. No acute intracranial findings. Exam mildly compromised by motion artifact. 2. Right frontoparietal and cerebellar encephalomalacia. 3. Stable mild ventricular dilatation. This is likely due to central atrophy. Although less likely, normal pressure hydrocephalus could appear similar. ACT 112: Negative or not required by law. Electronically signed by: Cory Guajardo M.D. 08/27/2023 12:05 PM Code Status & VTE Plan Code Status DNR/DNI VTE Prophylaxis Plan VTE Prophylaxis will be ordered: Yes Supervising Physician Co-Signing Physician Notes Jarrett is an 82-year-old male with past medical history of CVA, paroxysmal A- fib, BPH, GERD, hyperlipidemia, hypertension, mechanical heart valve in 1984, and who is wheelchair-bound at baseline who presents to the ER with worsened left-sided and left leg weakness. Patient had a CVA 4.5 years ago with residual weakness in his left arm and leg, however patient has noted in the last 2 days he has much weaker on his left side than normal, and in-home physical therapist also noticed that he was weaker in his left side and is unable to transfer between his wheelchair. At bedside patient denies fever, chills, sweats, dysuria, polyuria. He does endorse continued difficulty with left hip flexion and left ankle dorsiflexion/plantarflexion which is worse than his normal baseline. He has not had any dysarthria or aphasia. He does not feel confused. He denies chest pain or chest pressure. He does note he has a mechanical heart valve. Weakness: w/ global decline, but acutely worsened LLE weakness. No evidence of infection. Mild leg swelling and +L hip pain, denies falls. XR does not show fracture, ultrasound does not show evidence of DVT. X-ray suboptimal due to rotation, do not suspect fracture but if suspicion arises could follow-up with CT; do not feel this is indicated at time of admission. CT-H naf. +encephalomalacia. w/ prior CVA and cognitive decline suspect mild ventricular dilation is 2/2 ex vacuo rather than NPH. Agree w/ obtaining AV card to determine if MRI can be obtained, and completion of imaging with angiography. PT/OT and CM are consulted. Per record review he has a Justyna Shiley mechanical aortic valve [address] Acosta at [facility]. Serial #[id number]. Unclear if this is MRI safe. Pt has valve card in [facility], will have bring this in; will be necessary to determine if he can get an MRI. Pt had a spontaneous subarachnoid/intraparenchymal cerebral hemorrhage 2018 with residual left hemiparesis.. Symptomatic paroxysmal A-fib. He is anticoagulated on warfarin both for his A- fib and mechanical AV. INR subtherapeutic on admission at 1.8. Goal INR 22 0.5. He has a narrow INR goal and is not recommended for a goal of 2.5-3.5 based on prior ICH. Agree with assessment and management above PG Care Time/CCT Total # of Minutes Spent Total Time Spent with Patient: Total time spent is greater than 50% in coordination of care (as documented) at patient's floor/unit and/or counseling patient: Coding [place] [address] INT INP/OBS CARE 3/75MIN Patient Type Established History Comprehensive Exam Comprehensive Medical Decision Making High Complexity Diagnoses Stroke-like symptoms R29.90 Left leg weakness R29.898 Left hemiparesis G81.94 PAF (paroxysmal atrial fibrillation) I48.0 Hypertension I10 BPH (benign prostatic hyperplasia) N40.0 Hyperlipidemia E78.5
--- NOTE | 2023-08-27 17:10 | XRay Report ---
XR hip LT 2V w pelvis HISTORY: 82 years-old Male left hip pain x1 week acute left hip pain COMPARISON: 07/04/2023 TECHNIQUE: AP view of the pelvis with 2 views of the left hip FINDINGS: Limited evaluation of the left hip secondary to positioning/rotation. There is moderate osteoarthriti s of the hips. Demineralized appearance of the bones. No definite acute fracture, dislocation or avas cular necrosis. Arterial calcifications. IMPRESSION: No acute fracture or dislocation identified. There is however suboptimal evaluation of th e left hip secondary to internal rotation. If there is clinical concern for a radiographically occult fracture, correlation with CT may be considered. ACT 112: Negative or not required by law. The above report was generated using voice recognition software. It may contain grammatical, syntax o r spelling errors. Electronically signed by: Nikolas Avila M.D. 08/27/2023 5:07 PM
--- NOTE | 2023-08-27 17:10 | Ultrasound Report ---
LEFT LOWER EXTREMITY VENOUS DOPPLER HISTORY: Acute pain and swelling of the left lower extremity swelling and pain in leg COMPARISON STUDY: None. FINDINGS: There is normal compressibility, flow, and augmentation within the left lower extremity hernandez p venous system. IMPRESSION: No DVT within the left lower extremity. ACT 112: Negative or not required by law. Electronically signed by: Nikolas Avila M.D. 08/27/2023 5:08 PM
[2023-08-27] MEDS ORDERED: WARFARIN SOD 5 MG TAB PO ONE (18:30)
[2023-08-27] MEDS: ACETAMINOPHEN 325 MG TAB PO PRN (23:26)
[2023-08-27] MEDS: TAMSULOSIN HCL 0.4 MG CAP PO SCH (23:27)
--- NOTE | 2023-08-27 23:28 | Electrocardiogram Report ---
Test Reason : Blood Pressure : / mmHG Vent. Rate : 110 BPM Atrial Rate : 110 BPM P-R Int : 144 ms QRS Dur : 146 ms QT Int : 388 ms P-R-T Axes : 039 105 042 degrees QTc Int : 525 ms Sinus tachycardia with occasional Premature ventricular complexes and Premature atrial complexes Right bundle branch block Abnormal ECG When compared with ECG of 06-JUL-2023 05:01, Premature ventricular complexes are now Present Right bundle branch block is now Present Confirmed by Bennett Barrera ([id number]) on 08/27/2023 11:27:53 PM Referred By: REFERRED SELF Confirmed By:Bennett Barrera
[2023-08-27] MEDS: DOCUSATE SODIUM 100 MG CAP PO SCH (23:48)
--- NOTE | 2023-08-28 01:14 | CT Scan Report ---
Exam(s): CTA HEAD With Contrast IV Amt: 112 ML EXAM: CT Angiography Head With Intravenous Contrast CLINICAL HISTORY: Reason for exam: CVA r/o. TECHNIQUE: Axial computed tomographic angiography images of the head with intravenous contrast. CTDI is 41.72 mGy and DLP is 448.45 mGy-cm. Automated exposure control was utilized for the study. A dose lowering technique was utilized adhering to the principles of ALARA. MIP reconstructed images were created and reviewed. CONTRAST: Patient received 112 ML of IV contrast COMPARISON: No relevant prior studies available. FINDINGS: The dural venous sinuses are patent. Right internal carotid artery: No acute findings. Intracranial segment is patent with no significant stenosis. 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 Right anterior cerebral artery: Unremarkable. No occlusion or significant stenosis. No aneurysm. Right middle cerebral artery: Unremarkable. No occlusion or significant stenosis. No aneurysm. Right posterior cerebral artery: Unremarkable. No occlusion or significant stenosis. No aneurysm. Right vertebral artery: Unremarkable as visualized. Left internal carotid artery: No acute findings. Intracranial segment is patent with no significant stenosis. No aneurysm. Left anterior cerebral artery: Unremarkable. No occlusion or significant stenosis. No aneurysm. Left middle cerebral artery: Unremarkable. No occlusion or significant stenosis. No aneurysm. Left posterior cerebral artery: Unremarkable. No occlusion or significant stenosis. No aneurysm. Left vertebral artery: Unremarkable as visualized. Basilar artery: Unremarkable. No occlusion or significant stenosis. No aneurysm. 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 Otherwise, negative CT angiogram of the head. Electronically signed by: Ling Hammonds MD 08/28/23 01:13 AM
--- NOTE | 2023-08-28 01:26 | CT Scan Report ---
Exam(s): CTA NECK With Contrast IV Amt: 112 ML EXAM: CT Angiography Neck With Intravenous Contrast CLINICAL HISTORY: Reason for exam: CVA r/o. TECHNIQUE: Routine carotid CT angiography protocol was performed with intravenous contrast. NASCET criteria using the distal ICAs for comparison were used for evaluation of stenoses. CTDI is 41.72 mGy and DLP is 448.45 mGy-cm. Automated exposure control was utilized for the study. A dose lowering technique was utilized adhering to the principles of ALARA. MIP reconstructed images were created and reviewed. CONTRAST: Patient received 112 ML of IV contrast COMPARISON: None. FINDINGS: VASCULATURE: Right common carotid artery: Unremarkable. No occlusion or significant stenosis. No dissection. Right internal carotid artery: Unremarkable. Extracranial segment is patent with no occlusion or significant stenosis. No dissection. Right external carotid artery: Unremarkable. No occlusion. Right vertebral artery: Unremarkable. No occlusion or significant stenosis. No dissection. Left common carotid artery: Unremarkable. No occlusion or significant stenosis. No dissection. Left internal carotid artery: There is a 70% stenosis of the proximal left ICA.. No dissection. Left external carotid artery: Unremarkable. No occlusion. Left vertebral artery: Unremarkable. No occlusion or significant stenosis. No dissection. NECK: Bones/joints: Incomplete fusion of the posterior ring of C1. Incomplete segmentation of C2 and C3. Critical spinal canal stenosis at C5-6. Recommend MRI of the cervical spine evaluate for myelopathy. Soft tissues: Prominent cervical lymph nodes. Lung apices: Clear. CAROTID STENOSIS REFERENCE USING NASCET CRITERIA: % ICA stenosis = (1 - narrowest ICA diameter/diameter of distal cervical ICA) x 100. Mild - <50% stenosis. Moderate - 50-69% stenosis. Severe - 70-94% stenosis. Near occlusion - 95-99% stenosis. Occluded - 100% stenosis. IMPRESSION: There is a 70% stenosis of the proximal left ICA. Electronically signed by: Ling Hammonds MD 08/28/23 01:25 AM
[2023-08-28 03:09] LABS: Appearance Urine Clear (Clear); Bacteria Urine Automated Negative (Negative); Bilirubin Urine Negative (Negative); Blood Urine Negative (Negative); Cast Urine Automated 0 /lpf (0-5); Color Urine Yellow; Glucose Urine UA Negative (Negative); Ketones Urine Negative (Negative); Leukocyte Esterase Urine Negative (Negative); Nitrite Urine Negative (Negative); Protein Urine Trace (Negative); RBC Urine Automated 0-4 /hpf (0-4); Specific Gravity Urine > 1.045 (1.000-1.030); Urobilinogen Urine Negative (Negative)
[2023-08-28 06:28] LABS: Basophils # (auto) 0.05 K/uL (0.00-0.20); Basophils % (auto) 0.5 %; Eosinophils # (auto) 0.34 K/uL (0.00-0.50); Eosinophils % (auto) 3.4 %; Hemoglobin 12.5 g/dl (14.0-18.0); Immature Granulocytes # (auto) 0.04 K/uL (0.01-0.20); Immature Granulocytes % (auto) 0.4 %; Lymphocytes # (auto) 2.79 K/uL (1.20-3.40); Lymphocytes % (auto) 28.1 %; Mean Corpuscular Hgb Conc 32.9 g/dL (32.0-36.0); Mean Corpuscular Volume 94.3 fL (80.0-100.0); Mean Platelet Volume 12.3 fL (9.4-12.4); Monocytes % (auto) 12.1 %; Neutrophils # (auto) 5.51 K/uL (1.40-6.50); Neutrophils % (auto) 55.5 %; Platelet Count 179 K/uL (130-400); RDW Coefficient of Variation 14.2 % (11.5-14.5); RDW Standard Deviation 48.9 fL (36.4-46.3); Red Blood Count 4.03 M/uL (4.70-6.10); White Blood Count 9.93 K/ul (4.8-10.8)
[2023-08-28 06:51] LABS: BUN Creatinine Ratio 19.3 (10-20); Calcium 8.4 mg/dl (8.6-10.3); Chol HDL Ratio 2.6 (0-5); Creatinine Clr Calc Pharmacy 48.8 ml/min; Est GFR (African American) 71.9 ml/min; Potassium 3.7 mmol/L (3.5-5.1)
[2023-08-28 07:21] LABS: INR 1.8 (0.9-1.1)
[2023-08-28] MEDS: FINASTERIDE 5 MG TAB PO SCH (08:08)
[2023-08-28] MEDS: DIGOXIN 0.125 MG TAB PO SCH (08:08)
[2023-08-28] MEDS: FOLIC ACID 1 MG TAB PO SCH (08:08)
[2023-08-28] MEDS: ROSUVASTATIN CALCIUM 20 MG TAB PO SCH (08:08)
[2023-08-28] MEDS: lisinopril 2.5 MG TAB PO SCH (08:10)
[2023-08-28] MEDS: METOPROLOL SUCC 25MG EXT REL TAB PO SCH (08:10)
[2023-08-28] MEDS: DOCUSATE SODIUM 100 MG CAP PO SCH ×2 (08:11→22:38)
[2023-08-28] MEDS: ACETAMINOPHEN 325 MG TAB PO PRN ×2 (10:03→23:16)
--- NOTE | 2023-08-28 12:02 | Hospitalist Progress Note ---
Date of Service August 28, 2023 Assessment & Plan (1) Stroke-like symptoms: Plan: 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 Presents to the hospital with acute worsening of left-sided full-body weakness x [address] revealed no acute findings, but did reveal mild ventricular dilation "likely due to central atrophy" Patient reports he has a "metal heart valve"; spoke with MRI and they deemed the mechanical aortic valve safe; photocopied pt's card and added to paper chart Patient declined brain MRI, and MR angio head, as he is nervous his heart valve is not compatible despite reassurance that it is MRI safe CTA head and neck showed small right cavernous carotid artery aneurysm 3.3mm x2.6mm and 70% stenosis of proximal left ICA Will consult vascular surgery Echo on 07/04/2023 showed LVEF >70%; no ASD; resolution "did not allow assessment of PFO"; given low probability, we will not repeat echo at this time Aspirin held given higher risk of bleeding; on Coumadin; INR 1.8 (2) Left leg weakness: Plan: Acute on chronic 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 Digoxin level On warfarin for both mechanical AV and a fib Patient reportedly held warfarin on 08/26; will give 5.0mg today 08/27; INR 1.8 Warfain dosing: INR goal range: 2.0-2.5 T, Th, Sat dosin.5mg All other days: 5.0mg Weekly warfarin total: 27.5mg (5) Hypertension: Plan: BP 130/75 today Continue metoprolol, Lisinopril (6) BPH (benign prostatic hyperplasia): Plan: Continue tamsulosin (7) Hyperlipidemia: Plan: Continue rosuvastatin Plan Disposition: Admit to [facility] telemetry DNR/DNI N.p.o until dysphagia screen, then AHA diet as tolerated VTE PPx: Coumadin Admission and Anticipated Discharge Date Admission Date: August 27, 2023 Subjective patient seen and examined, says he is back to baseline, has chronic residual left hemiparesis Review of Systems Review of Systems: All systems reviewed are negative, apart from the ones contained in the history. Physical Exam Physical Exam: The patient is awake, alert and oriented 3, well developed and well nourished, normocephalic and atraumatic, lying in bed and in no acute distress. HEENT--PERRL, EOMI, mucous membranes and oropharynx mildly dry Neck--supple. No JVD. No bruits. Thyroid normal, trachea midline, no adenopathy. Heart--normal S1 and S2. No murmurs, rubs or gallops. Lungs--clear bilaterally, no respiratory distress, no accessory muscle use. Abdomen--normal bowel sounds and soft. Mild epigastric and left sided abdominal pain Extremities--no cyanosis or clubbing. No edema. Dermatologic--normal skin turgor, normal color, no abnormal lymph nodes, no rash. Neurologic--cranial nerves II through XII grossly intact. left hemiparesis Rheumatologic--normal range of motion. Psychiatric--normal affect. Results & Data Results & Data Vital Signs (Past 12 Hours) Vital Signs Temp Pulse Pulse Resp BP Pulse Ox O2 Del Method 08/28/23 08:08 84 08/28/23 08:00 98.1 F 84 18 130/75 93 Room Air 08/28/23 06:04 81 08/28/23 02:54 97.7 F 113 H 18 129/77 94 Room Air PG Care Time/CCT Total # of Minutes Spent Total Time Spent with Patient: Total time spent is greater than 50% in coordination of care (as documented) at patient's floor/unit and/or counseling patient: Coding Level of Care Code 05080 SUB INP/OBS CARE 2/35MIN Diagnoses Stroke-like symptoms R29.90 Left leg weakness R29.898 Left hemiparesis G81.94 PAF (paroxysmal atrial fibrillation) I48.0 Hypertension I10 BPH (benign prostatic hyperplasia) N40.0 Hyperlipidemia E78.5 Time Spent (min) 35
[2023-08-28] MEDS ORDERED: WARFARIN SOD 5 MG TAB PO SCH (16:00)
[2023-08-28] MEDS: WARFARIN SOD 2.5 MG TAB PO SCH (17:20)
[2023-08-28] MEDS: TAMSULOSIN HCL 0.4 MG CAP PO SCH (23:14)
[2023-08-29 06:59] LABS: Basophils # (auto) 0.05 K/uL (0.00-0.20); Basophils % (auto) 0.4 %; Eosinophils # (auto) 0.38 K/uL (0.00-0.50); Eosinophils % (auto) 3.3 %; Hematocrit (blood only) 37.9 % (42.0-52.0); Hemoglobin 12.5 g/dl (14.0-18.0); Immature Granulocytes # (auto) 0.06 K/uL (0.01-0.20); Immature Granulocytes % (auto) 0.5 %; Lymphocytes # (auto) 3.24 K/uL (1.20-3.40); Lymphocytes % (auto) 28.5 %; Mean Corpuscular Hemoglobin 31.2 pg (25.0-34.0); Mean Corpuscular Volume 94.5 fL (80.0-100.0); Mean Platelet Volume 12.1 fL (9.4-12.4); Monocytes # (auto) 1.13 K/uL (0.11-0.59); Neutrophils # (auto) 6.49 K/uL (1.40-6.50); Neutrophils % (auto) 57.3 %; Platelet Count 178 K/uL (130-400); RDW Coefficient of Variation 14.4 % (11.5-14.5); Red Blood Count 4.01 M/uL (4.70-6.10); White Blood Count 11.35 K/ul (4.8-10.8)
[2023-08-29 07:29] LABS: BUN Creatinine Ratio 21.5 (10-20); Calcium 8.6 mg/dl (8.6-10.3); Est GFR (African American) 63.3 ml/min; Est GFR (Non-African American) 54.6 ml/min; Potassium 4.3 mmol/L (3.5-5.1)
[2023-08-29 07:48] LABS: INR 1.9 (0.9-1.1); Prothrombin Time 20.4 Seconds (9.0-12.0)
[2023-08-29] MEDS: METOPROLOL SUCC 25MG EXT REL TAB PO SCH (08:35)
[2023-08-29] MEDS: ROSUVASTATIN CALCIUM 20 MG TAB PO SCH (08:35)
[2023-08-29] MEDS: FINASTERIDE 5 MG TAB PO SCH (08:38)
[2023-08-29] MEDS: lisinopril 2.5 MG TAB PO SCH (08:38)
[2023-08-29] MEDS: FOLIC ACID 1 MG TAB PO SCH (08:39)
[2023-08-29] MEDS: DOCUSATE SODIUM 100 MG CAP PO SCH ×2 (08:39→20:04)
[2023-08-29] MEDS: DIGOXIN 0.125 MG TAB PO SCH (08:40)
--- NOTE | 2023-08-29 11:30 | Hospitalist Progress Note ---
Date of Service August 29, 2023 Assessment & Plan (1) Stroke-like symptoms: Plan: 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 Presents to the hospital with acute worsening of left-sided full-body weakness x [address] revealed no acute findings, but did reveal mild ventricular dilation "likely due to central atrophy" Patient reports he has a "metal heart valve"; spoke with MRI and they deemed the mechanical aortic valve safe; photocopied pt's card and added to paper chart Patient declined brain MRI, and MR angio head, as he is nervous his heart valve is not compatible despite reassurance that it is MRI safe CTA head and neck showed small right cavernous carotid artery aneurysm 3.3mm x2.6mm and 70% stenosis of proximal left ICA Will consult vascular surgery Echo on 07/04/2023 showed LVEF >70%; no ASD; resolution "did not allow assessment of PFO"; given low probability, we will not repeat echo at this time Aspirin held given higher risk of bleeding; on Coumadin; INR 1.8 (2) Left leg weakness: Plan: Acute on chronic 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 Digoxin level On warfarin for both mechanical AV and a fib Patient reportedly held warfarin on 08/26; will give 5.0mg today 08/27; INR 1.8 Warfain dosing: INR goal range: 2.0-2.5 T, Th, Sat dosin.5mg All other days: 5.0mg Weekly warfarin total: 27.5mg (5) Hypertension: Plan: under better control Continue metoprolol, Lisinopril (6) BPH (benign prostatic hyperplasia): Plan: Continue tamsulosin (7) Hyperlipidemia: Plan: Continue rosuvastatin Plan Disposition: awaiting vascular surgery evaluation DNR/DNI regular VTE PPx: Coumadin Admission and Anticipated Discharge Date Admission Date: August 27, 2023 Subjective patient seen and examined, says he is back to baseline, has chronic residual left hemiparesis, now complains of left hip, thigh pain Review of Systems Review of Systems: All systems reviewed are negative, apart from the ones contained in the history. Physical Exam Physical Exam: The patient is awake, alert and oriented 3, well developed and well nourished, normocephalic and atraumatic, lying in bed and in no acute distress. HEENT--PERRL, EOMI, mucous membranes and oropharynx mildly dry Neck--supple. No JVD. No bruits. Thyroid normal, trachea midline, no adenopathy. Heart--normal S1 and S2. No murmurs, rubs or gallops. Lungs--clear bilaterally, no respiratory distress, no accessory muscle use. Abdomen--normal bowel sounds and soft. Mild epigastric and left sided abdominal pain Extremities--no cyanosis or clubbing. No edema. Dermatologic--normal skin turgor, normal color, no abnormal lymph nodes, no rash. Neurologic--cranial nerves II through XII grossly intact. left hemiparesis Rheumatologic--normal range of motion. Psychiatric--normal affect. Results & Data Results & Data Vital Signs (Past 12 Hours) Vital Signs Temp Pulse Pulse Resp BP Pulse Ox O2 Del Method 08/29/23 11:19 97.7 F 93 H 16 116/73 94 Room Air 08/29/23 08:40 87 112/70 08/29/23 08:40 87 08/29/23 08:00 97.5 F L 85 16 99/64 L 96 Room Air 08/29/23 06:01 104 H 08/29/23 02:07 98.1 F 84 18 97/63 L 95 Room Air PG Care Time/CCT Total # of Minutes Spent Total Time Spent with Patient: Total time spent is greater than 50% in coordination of care (as documented) at patient's floor/unit and/or counseling patient: Coding Level of Care Code 84556 SUB INP/OBS CARE 2/35MIN Diagnoses Stroke-like symptoms R29.90 Left leg weakness R29.898 Left hemiparesis G81.94 PAF (paroxysmal atrial fibrillation) I48.0 Hypertension I10 BPH (benign prostatic hyperplasia) N40.0 Hyperlipidemia E78.5 Time Spent (min) 35
[2023-08-29] MEDS: WARFARIN SOD 5 MG TAB PO SCH (15:47)
[2023-08-29] MEDS: ACETAMINOPHEN 325 MG TAB PO PRN (20:47)
[2023-08-29] MEDS: TAMSULOSIN HCL 0.4 MG CAP PO SCH (20:48)
[2023-08-30] MEDS ORDERED: SODIUM CHLORIDE 0.9% 500 ML IV ONE (01:40)
[2023-08-30] MEDS: ACETAMINOPHEN 325 MG TAB PO PRN ×2 (01:48→09:12)
--- NOTE | 2023-08-30 02:04 | Communication Note ---
Date of Service: August 30, 2023 Notified around 0200 patient flipped into afib RVR, asymptomatic. Ordered IV digoxin 125mcg dose since he is already on this daily. Will monitor. Resident Activity Tracking Resident Involvement: Resident Care Provided Care Provided: Adult [facility]
[2023-08-30] MEDS ORDERED: DIGOXIN 125 MCG in SYRINGE 9.5 ML IV STA (02:06)
[2023-08-30 06:41] LABS: Basophils # (auto) 0.05 K/uL (0.00-0.20); Basophils % (auto) 0.5 %; Eosinophils # (auto) 0.31 K/uL (0.00-0.50); Eosinophils % (auto) 3.1 %; Hematocrit (blood only) 39.4 % (42.0-52.0); Hemoglobin 12.6 g/dl (14.0-18.0); Immature Granulocytes # (auto) 0.06 K/uL (0.01-0.20); Immature Granulocytes % (auto) 0.6 %; Lymphocytes # (auto) 2.99 K/uL (1.20-3.40); Lymphocytes % (auto) 29.7 %; Mean Corpuscular Hemoglobin 30.4 pg (25.0-34.0); Mean Corpuscular Volume 95.2 fL (80.0-100.0); Mean Platelet Volume 11.6 fL (9.4-12.4); Monocytes # (auto) 0.93 K/uL (0.11-0.59); Monocytes % (auto) 9.2 %; Neutrophils # (auto) 5.72 K/uL (1.40-6.50); Neutrophils % (auto) 56.9 %; Platelet Count 171 K/uL (130-400); RDW Coefficient of Variation 14.2 % (11.5-14.5); RDW Standard Deviation 49.7 fL (36.4-46.3); Red Blood Count 4.14 M/uL (4.70-6.10); White Blood Count 10.06 K/ul (4.8-10.8)
[2023-08-30 07:08] LABS: BUN Creatinine Ratio 19.9 (10-20); Calcium 8.3 mg/dl (8.6-10.3); Creatinine Clr Calc Pharmacy 39.1 ml/min; Est GFR (Non-African American) 47.4 ml/min; Potassium 3.9 mmol/L (3.5-5.1)
[2023-08-30 07:11] LABS: INR 2.1 (0.9-1.1); Prothrombin Time 22.3 Seconds (9.0-12.0)
[2023-08-30] MEDS: DOCUSATE SODIUM 100 MG CAP PO SCH ×2 (08:37→20:07)
[2023-08-30] MEDS: FINASTERIDE 5 MG TAB PO SCH (08:40)
[2023-08-30] MEDS: DIGOXIN 0.125 MG TAB PO SCH (08:41)
[2023-08-30] MEDS: FOLIC ACID 1 MG TAB PO SCH (08:43)
[2023-08-30] MEDS: lisinopril 2.5 MG TAB PO SCH (08:44)
[2023-08-30] MEDS: ROSUVASTATIN CALCIUM 20 MG TAB PO SCH (08:44)
[2023-08-30] MEDS: METOPROLOL SUCC 25MG EXT REL TAB PO SCH (08:44)
--- NOTE | 2023-08-30 10:01 | Consultation ---
Date of Consultation August 30, 2023 Assessment & Plan (1) Carotid stenosis, left: L ICA stenosis of 70% noted on CTA, pt is asymptomatic. Sx he experienced on admission appear to be musculoskeletal, but regardless, his R ICA demonstrates minimal plaque formation. Recommend he undergo reeval in 6 months with carotid US. Office will call to schedule. Pt is agreeable. Distal R ICA aneurysm can be eval by neurointerventional radiology at a tertiary facility, if felt to be indicated by medical team. Please call if needed. History of Present Illness Reason for Consultation: L ICA stenosis Attending Physician: Doris Clemens MD History of Present Illness 82 yo m with hx of BPH, PAF, hemorrhagic CVA in 2018 with residual L hemiparesis, CKD III, GERD, HTN, hyperlipidemia, RLS, aortic stenosis with hx of replacement with mechanical valve 1984, admitted with possible worsening of L sided weakness and found to have L ICA stenosis, seen in consultation today for LICAS. Pt states no prior knowledge of this. States he started having significant pain in L thigh/knee area, particularly with his PT, and was not able to perform his usual PT exercises, so his therapist became concerned about possible worsening of his weakness and advised medical evaluation. Pt denies any other related sx, including new confusion or speech problems, new facial droop, amaurosis, ACEVEDO. Denies fever, recent illness, chest pain, palpitations, abd pain, N/V, rest pain, claudication, other complaints. Does not walk fast or far enough to claudicate. CTA neck demonstrates L ICA stenosis of 70%, and small intracranial right carotid aneurysm. Allergies Allergy/AdvReac Type Severity Reaction Status Date / Time No Known Allergies Allergy Unverified 07/22/23 09:02 Home Medications Medication Instructions Recorded Confirmed Type vit C 250 mg-vit E 90 mg-zinc 40 1 tab PO BID 02/07/19 07/22/23 History mg-copper 1 [id number] capsule (PreserVision AREDS-2) rosuvastatin 40 mg tablet 40 mg PO DAILY #90 tabs 06/11/22 08/27/23 Rx docusate sodium 100 mg capsule 100 mg PO BID #180 caps 08/20/22 08/27/23 Rx folic acid 1 mg tablet 1 mg PO DAILY #90 tabs 02/15/23 08/27/23 Rx digoxin 125 mcg (0.125 mg) tablet 125 mcg PO DAILY #90 tabs 06/07/23 08/27/23 Rx tamsulosin 0.4 mg capsule 0.4 mg PO .QHS #90 caps 06/22/23 08/27/23 Rx warfarin 5 mg tablet 5 mg PO DIRECTED 07/04/23 08/27/23 History L.acidop,casei,lactis,rham-B.lact,meche 2 cap PO DAILY #30 caps 07/09/23 08/27/23 Rx 625 mg (10 billion cell) capsule (Advanced Probiotic) finasteride 5 mg tablet 5 mg PO QAM #90 tabs 07/22/23 08/27/23 Rx lisinopril 2.5 mg tablet 2.5 mg PO DAILY 08/27/23 08/27/23 History metoprolol succinate 25 mg 12.5 mg PO QAM 08/27/23 08/27/23 History tablet,extended release 24 hr Patient History Medical History THIAGO (acute kidney injury) Bacteremia (07/2023) Benign prostatic hyperplasia with urinary obstruction BPH (benign prostatic hyperplasia) Chronic kidney disease, stage 3 (moderate) GERD (gastroesophageal reflux disease) H/O: CVA (cerebrovascular accident) (01/2019) History of subarachnoid hemorrhage (01/2019) Hyperlipidemia Hypertension Left hemiparesis RLS (restless legs syndrome) Rupture of left long head biceps tendon Sepsis due to urinary tract infection (07/2023) Surgical History H/O mechanical aortic valve replacement (1984) S/P tonsillectomy Family History Brother , Twin brother Myocardial infarction Denies family history of Ovarian cancer Prostate cancer Breast cancer Colorectal cancer Social History Smoking Status: Former smoker Tobacco Type: Cigarettes Age Quit Using Tobacco: 30; Second Hand Exposure: No; Do You Dip or Chew Tobacco: No; Tobacco Cessation Education Requested by Patient: No Hx Alcohol Use: No Hx Substance Use: No Preferred Language: Senegalese Communication Ability: Effective Visual Impairment: No Limitations Hearing Ability: Use of Hearing Aid Box Sorter Required: No Beliefs That Will Affect Care: None marital status: Current Living Situation: Spouse current occupational status: retired Other Information That Helps Us Care for You: No Feels Safe at Home: Yes Safety Concerns: Feels Safe At This Time Diet: regular Diet Comment: regular caffeine: Yes during the past year weight has: remained stable Dental Care, Regularly: No Physical Activity Frequency: Other Physical Activity Frequency Comment: PHYSICAL THERAPY DUE TO STROKE Seatbelt Use: always Sunscreen Use: Yes Assistive Devices: Walker and Wheelchair Assistive Devices Comment: kanika walker Review of Systems Review of Systems: All systems reviewed & are unremarkable except as noted in HPI & below Physical Exam Constitutional: WD/WN, vitals as above cooperative and comfortable; not in distress ENMT: Ears: + hearing impairment (hearing aid in place) Neck: trachea midline Respiratory: normal respiratory effort, lungs clear to auscultation Auscultation: + diminished lung sounds Cardiovascular: Rate/Rhythm: regular rate and regular rhythm Vessels: femoral pulses present, posterior tibial pulses present, dorsalis pedis pulses present and radial pulses present; + abnormal peripheral pulses Extremities: normal capillary refill; no edema Gastrointestinal (Abdomen): Inspection/Auscultation: abdomen normal to inspection and normal bowel sounds Percussion/Palpation: abdomen soft; abdomen nontender Musculoskeletal: tenderness L medial thigh and knee area, no erythema or edema or ecchymosis. L arm and leg flaccid, L hand claw formation Skin: no rashes, warm and dry Neurologic: + focal motor deficit (old L facial droop, L arm and leg hemiparesis) and awake; + does not move all extremities and not confused Speech / Cognition: no expressive aphasia and no receptive aphasia Psychiatric: A+Ox3, euthymic affect Results & Data Vital Signs (Past 12 Hours) Vital Signs Temp Pulse Pulse Resp BP Pulse Ox O2 Del Method 08/30/23 08:41 115 H 08/30/23 08:00 101 H 08/30/23 07:22 36.6 C 83 16 112/73 95 Room Air 08/30/23 03:00 36.6 C 132 H 18 99/67 L 98 Nasal Cannula 08/30/23 03:23 128 H 08/29/23 23:35 36.6 C 88 18 113/70 92 Room Air 10/29/23 23:53 83 O2 Flow Rate 08/30/23 08:41 08/30/23 08:00 08/30/23 07:22 08/30/23 03:00 2 08/30/23 03:23 08/29/23 23:35 08/29/23 23:53
--- NOTE | 2023-08-30 11:44 | Hospitalist Progress Note ---
Date of Service August 30, 2023 Assessment & Plan (1) Stroke-like symptoms: Plan: 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 Presents to the hospital with acute worsening of left-sided full-body weakness x [address] revealed no acute findings, but did reveal mild ventricular dilation "likely due to central atrophy" Patient reports he has a "metal heart valve"; spoke with MRI and they deemed the mechanical aortic valve safe; photocopied pt's card and added to paper chart Patient declined brain MRI, and MR angio head, as he is nervous his heart valve is not compatible despite reassurance that it is MRI safe CTA head and neck showed small right cavernous carotid artery aneurysm 3.3mm x2.6mm and 70% stenosis of proximal left ICA Vascular on consult, plan ifs for outpatient follow up with carotid US in 6 months Echo on 07/04/2023 showed LVEF >70%; no ASD; resolution "did not allow assessment of PFO"; given low probability, we will not repeat echo at this time Aspirin held given higher risk of bleeding; on Coumadin; INR 1.8 (2) Left leg weakness: Plan: Acute on chronic, but complains of some thigh pain, which most likely is musculoskeletal 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 Digoxin level On warfarin for both mechanical AV and a fib Patient reportedly held warfarin on 08/26; will give 5.0mg today 08/27; INR 1.8 Warfain dosing: INR goal range: 2.0-2.5 T, Th, Sat dosin.5mg All other days: 5.0mg Weekly warfarin total: 27.5mg (5) Hypertension: Plan: under better control Continue metoprolol, Lisinopril (6) BPH (benign prostatic hyperplasia): Plan: Continue tamsulosin (7) Hyperlipidemia: Plan: Continue rosuvastatin Plan Disposition: Patient may need rehab or snf DNR/DNI regular VTE PPx: Coumadin Admission and Anticipated Discharge Date Admission Date: August 27, 2023 Subjective patient seen and examined, says he is back to baseline, has chronic residual left hemiparesis, now complains of left hip, thigh pain Review of Systems Review of Systems: All systems reviewed are negative, apart from the ones contained in the history. Physical Exam Physical Exam: The patient is awake, alert and oriented 3, well developed and well nourished, normocephalic and atraumatic, lying in bed and in no acute distress. HEENT--PERRL, EOMI, mucous membranes and oropharynx mildly dry Neck--supple. No JVD. No bruits. Thyroid normal, trachea midline, no adenopathy. Heart--normal S1 and S2. No murmurs, rubs or gallops. Lungs--clear bilaterally, no respiratory distress, no accessory muscle use. Abdomen--normal bowel sounds and soft. Mild epigastric and left sided abdominal pain Extremities--no cyanosis or clubbing. No edema. Dermatologic--normal skin turgor, normal color, no abnormal lymph nodes, no rash. Neurologic--cranial nerves II through XII grossly intact. left hemiparesis Rheumatologic--normal range of motion. Psychiatric--normal affect. Results & Data Results & Data Vital Signs (Past 12 Hours) Vital Signs Temp Pulse Pulse Resp BP Pulse Ox O2 Del Method 08/30/23 11:32 97.7 F 91 H 20 112/75 96 Room Air 08/30/23 08:41 115 H 08/30/23 08:00 101 H 08/30/23 07:22 97.9 F 83 16 112/73 95 Room Air 08/30/23 03:00 97.9 F 132 H 18 99/67 L 98 Nasal Cannula 08/30/23 03:23 128 H 08/29/23 23:53 83 O2 Flow Rate 08/30/23 11:32 08/30/23 08:41 08/30/23 08:00 08/30/23 07:22 08/30/23 03:00 2 08/30/23 03:23 08/29/23 23:53 PG Care Time/CCT Total # of Minutes Spent Total Time Spent with Patient: Total time spent is greater than 50% in coordination of care (as documented) at patient's floor/unit and/or counseling patient: Coding Level of Care Code 76136 SUB INP/OBS CARE 2/35MIN Diagnoses Stroke-like symptoms R29.90 Left leg weakness R29.898 Left hemiparesis G81.94 PAF (paroxysmal atrial fibrillation) I48.0 Hypertension I10 BPH (benign prostatic hyperplasia) N40.0 Hyperlipidemia E78.5 Time Spent (min) 35
--- NOTE | 2023-08-30 13:15 | Electrocardiogram Report ---
Test Reason : Blood Pressure : / mmHG Vent. Rate : 146 BPM Atrial Rate : 220 BPM P-R Int : 000 ms QRS Dur : 152 ms QT Int : 356 ms P-R-T Axes : 000 -77 -05 degrees QTc Int : 554 ms Supraventricular tachycardia Left axis deviation Right bundle branch block Inferior infarct , age undetermined Abnormal ECG When compared with ECG of 27-AUG-2023 11:02, Supraventricular tachycardia has replaced Sinus rhythm Confirmed by Edwin Cavazos ([id number] on 08/30/2023 1:14:49 PM Referred By: REFERRED SELF Confirmed By:Dimitris Cavazos
[2023-08-30] MEDS: WARFARIN SOD 5 MG TAB PO SCH (16:50)
[2023-08-30 17:33] LABS: Adenovirus F 40/41 PCR Not Detected (NotDetected); Astrovirus PCR Not Detected (NotDetected); Campylobacter PCR Not Detected (NotDetected); Cryptosporidium PCR Not Detected (NotDetected); Cyclospora cayetanensis PCR Not Detected (NotDetected); Entamoeba histolytica PCR Not Detected (NotDetected); Enteroaggregative E.coli(EAEC) Not Detected (NotDetected); Enteropathogenic E.coli (EPEC) Not Detected (NotDetected); Enterotoxigenic E.coli (ETEC) Not Detected (NotDetected); Giardia lamblia PCR Not Detected (NotDetected); Norovirus GI/GII PCR Not Detected (NotDetected); Plesiomonas shigelloides PCR Not Detected (NotDetected); Rotavirus A PCR Not Detected (NotDetected); Salmonella PCR Not Detected (NotDetected); Sapovirus PCR Not Detected (NotDetected); Shiga-like Toxin E.coli (STEC) Not Detected (NotDetected); Shigella/Enteroinvasive E.coli Not Detected (NotDetected); Vibrio cholerae PCR Not Detected (NotDetected); Vibrio species PCR Not Detected (NotDetected); Yersinia enterocolitica PCR Not Detected (NotDetected)
[2023-08-30 19:14] LABS: Cdiff Antigen Positive; Cdiff Toxin B Gene (2yr or >) Positive Cdiff Gene (Neg)
[2023-08-30 19:17] LABS: Cdiff Toxin A+B Positive Cdiff Toxin (Negative)
[2023-08-30] MEDS: TAMSULOSIN HCL 0.4 MG CAP PO SCH (20:07)
[2023-08-31] MEDS: ACETAMINOPHEN 325 MG TAB PO PRN ×3 (02:23→22:28)
[2023-08-31 07:50] LABS: Hematocrit (blood only) 37.3 % (42.0-52.0); Hemoglobin 12.1 g/dl (14.0-18.0); Mean Corpuscular Hemoglobin 30.9 pg (25.0-34.0); Mean Corpuscular Hgb Conc 32.4 g/dL (32.0-36.0); Mean Corpuscular Volume 95.4 fL (80.0-100.0); Mean Platelet Volume 11.8 fL (9.4-12.4); Platelet Count 173 K/uL (130-400); RDW Coefficient of Variation 14.3 % (11.5-14.5); RDW Standard Deviation 49.7 fL (36.4-46.3); Red Blood Count 3.91 M/uL (4.70-6.10); White Blood Count 11.28 K/ul (4.8-10.8)
[2023-08-31 07:59] LABS: BUN Creatinine Ratio 19.2 (10-20); Calcium 8.4 mg/dl (8.6-10.3); Creatinine Clr Calc Pharmacy 42.6 ml/min; Est GFR (African American) 60.9 ml/min; Est GFR (Non-African American) 52.5 ml/min; Potassium 3.9 mmol/L (3.5-5.1)
[2023-08-31] MEDS: DIGOXIN 0.125 MG TAB PO SCH (08:51)
[2023-08-31] MEDS: DOCUSATE SODIUM 100 MG CAP PO SCH ×2 (08:57→20:21)
[2023-08-31] MEDS: FINASTERIDE 5 MG TAB PO SCH (08:58)
[2023-08-31] MEDS: FOLIC ACID 1 MG TAB PO SCH (08:58)
[2023-08-31] MEDS: METOPROLOL SUCC 25MG EXT REL TAB PO SCH (08:59)
[2023-08-31] MEDS: ROSUVASTATIN CALCIUM 20 MG TAB PO SCH (09:00)
[2023-08-31] MEDS: lisinopril 2.5 MG TAB PO SCH (09:14)
[2023-08-31] MEDS: VANCOMYCIN HCL 125 MG/2.5ML SOLN PO SCH ×2 (13:38→17:25)
[2023-08-31] MEDS: CHERRY SYRUP 5 ML UDP PO SCH ×2 (13:38→17:25)
--- NOTE | 2023-08-31 14:30 | Hospitalist Progress Note ---
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 Presents to the hospital with acute worsening of left-sided full-body weakness x [address] revealed no acute findings, but did reveal mild ventricular dilation "likely due to central atrophy" Patient reports he has a "metal heart valve"; spoke with MRI and they deemed the mechanical aortic valve safe; photocopied pt's card and added to paper chart Patient declined brain MRI, and MR angio head, as he is nervous his heart valve is not compatible despite reassurance that it is MRI safe CTA head and neck showed small right cavernous carotid artery aneurysm 3.3mm x2.6mm and 70% stenosis of proximal left ICA Vascular on consult, plan is for outpatient follow up with carotid US in 6 months Follow-up with neuro intervention radiology outpatient Echo on 07/04/2023 showed LVEF >70%; no ASD; resolution "did not allow assessment of PFO"; given low probability, we will not repeat echo at this time Aspirin held given higher risk of bleeding; on Coumadin; INR 1.8 (2) Left leg weakness: Plan: Acute on chronic, but complains of some thigh pain, which most likely is musculoskeletal 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 Physical therapy noted acute worsening over the past week Patient reports he was unable to get out of bed on morning of 08/27 Still complaining of left hip and thigh pain Venous Doppler: no DVT Hip and pelvis x-ray identified no acute fracture or dislocation Case management consulted in the event home care needs not met (3) Left hemiparesis: Plan: Residual; secondary to CVA in 2019 No BP, Labs, IVs in LUE (4) PAF (paroxysmal atrial fibrillation): Plan: Continuous telemonitoring Continue digoxin, warfarin, metoprolol On warfarin for both mechanical AV and a fib Patient reportedly held warfarin on 08/26; INR 2.1 on 08/30 Check INR daily Warfain dosing: INR goal range: 2.0-2.5 T, Th, Sat dosin.5mg All other days: 5.0mg Weekly warfarin total: 27.5mg (5) Hypertension: Plan: under better control Continue metoprolol, Lisinopril (6) BPH (benign prostatic hyperplasia): Plan: Continue tamsulosin (7) Hyperlipidemia: Plan: Continue rosuvastatin (8) C. difficile colitis: Plan: stool positive for C. difficile Patient has been having diarrhea Started him on vancomycin 125 mg p.o. every 6 Plan Disposition: Patient may need rehab or snf. Awaiting PT/OT recommendations DNR/DNI regular VTE PPx: Coumadin Admission and Anticipated Discharge Date Admission Date: August 27, 2023 Subjective Patient complains of diarrhea. Noted that C. difficile came back positive. Denies chest pain or shortness of breath Review of Systems Review of Systems: All systems reviewed & are unremarkable except as noted in Subjective Physical Exam Physical Exam: general: Awake, conversant Heart: S1, S2/regular rate and rhythm, no murmur rubs or gallops Lungs: Clear to auscultation bilaterally. Normal effort Abdomen: Soft/nontender/nondistended. No hepatosplenomegaly Extremities: No clubbing/cyanosis. No edema Behavior: Appropriate, cooperative Results & Data Results & Data Vital Signs (Past 12 Hours) Vital Signs Temp Pulse Pulse Resp BP Pulse Ox O2 Del Method 08/31/23 10:33 36.4 C L 94 H 18 111/76 95 Room Air 08/31/23 09:53 90 08/31/23 09:03 98/66 L 08/31/23 08:51 104 H 08/31/23 07:53 36.4 C L 75 18 126/75 97 Room Air Laboratory Results Abnormal lab results 08/30/23 08/31/23 08/31/23 Range/Units 16:00 07:00 07:00 WBC 11.28 H (4.8-10.8) K/ul RBC 3.91 L (4.70-6.10) M/uL Hgb 12.1 L (14.0-18.0) g/dl Hct 37.3 L (42.0-52.0) % RDW Std Deviation 49.7 H (36.4-46.3) fL BUN 24 H (6-23) mg/dl Calcium 8.4 L (8.6-10.3) mg/dl Stl C. diff Tox B Gene Positive Cdiff Gene H (Neg) Stl C.difficile Tox A&B Positive Cdiff Toxin A* (Negative) PG Care Time/CCT Total # of Minutes Spent Total Time Spent with Patient: Total time spent is greater than 50% in coordination of care (as documented) at patient's floor/unit and/or counseling patient: Coding Level of Care Code 40966 SUB INP/OBS CARE 2/35MIN Diagnoses Stroke-like symptoms R29.90 Left leg weakness R29.898 Left hemiparesis G81.94 PAF (paroxysmal atrial fibrillation) I48.0 Hypertension I10 BPH (benign prostatic hyperplasia) N40.0 Hyperlipidemia E78.5 C. difficile colitis A04.72
[2023-08-31] MEDS: WARFARIN SOD 2.5 MG TAB PO SCH (16:14)
[2023-08-31 17:02] LABS: INR 3.2 (0.9-1.1); Prothrombin Time 32.4 Seconds (9.0-12.0)
[2023-08-31] MEDS: TAMSULOSIN HCL 0.4 MG CAP PO SCH (20:21)
[2023-09-01] MEDS: CHERRY SYRUP 5 ML UDP PO SCH ×4 (00:25→18:23)
[2023-09-01] MEDS: VANCOMYCIN HCL 125 MG/2.5ML SOLN PO SCH ×4 (00:25→18:23)
[2023-09-01] MEDS: ACETAMINOPHEN 325 MG TAB PO PRN ×3 (06:31→20:51)
[2023-09-01] MEDS: DOCUSATE SODIUM 100 MG CAP PO SCH ×2 (08:04→20:54)
[2023-09-01] MEDS: METOPROLOL SUCC 25MG EXT REL TAB PO SCH (08:04)
[2023-09-01] MEDS: FINASTERIDE 5 MG TAB PO SCH (08:05)
[2023-09-01] MEDS: DIGOXIN 0.125 MG TAB PO SCH (08:05)
[2023-09-01] MEDS: lisinopril 2.5 MG TAB PO SCH (08:05)
[2023-09-01] MEDS: ROSUVASTATIN CALCIUM 20 MG TAB PO SCH (08:06)
[2023-09-01] MEDS: FOLIC ACID 1 MG TAB PO SCH (08:06)
[2023-09-01 08:37] LABS: Hematocrit (blood only) 37.4 % (42.0-52.0); Hemoglobin 12.3 g/dl (14.0-18.0); Mean Corpuscular Hemoglobin 30.8 pg (25.0-34.0); Mean Corpuscular Hgb Conc 32.9 g/dL (32.0-36.0); Mean Corpuscular Volume 93.5 fL (80.0-100.0); Mean Platelet Volume 12.3 fL (9.4-12.4); Platelet Count 168 K/uL (130-400); RDW Coefficient of Variation 13.9 % (11.5-14.5); RDW Standard Deviation 47.8 fL (36.4-46.3); White Blood Count 10.37 K/ul (4.8-10.8)
[2023-09-01 08:45] LABS: BUN Creatinine Ratio 17.6 (10-20); Calcium 8.3 mg/dl (8.6-10.3); Creatinine Clr Calc Pharmacy 44.7 ml/min; Est GFR (African American) 64.6 ml/min; Est GFR (Non-African American) 55.8 ml/min; Potassium 4.1 mmol/L (3.5-5.1)
[2023-09-01 08:55] LABS: INR 3.3 (0.9-1.1); Prothrombin Time 33.8 Seconds (9.0-12.0)
--- NOTE | 2023-09-01 10:47 | Gastrointestinal Consultation ---
Date of Consultation September 01, 2023 Assessment & Plan (1) C. difficile colitis: (2) Rectal bleeding: Plan Patient seen in conjunction with Dr. Lagunas who advised on the plan. 1) Continue Vancomycin 125 mg po Q 6 hr 2) If patient develops abdominal pain, consider imaging 3) Continue to monitor H/H. Given INR of 3.3 & + C diff, patient currently does have a reason for blood tinged stools. Continue to monitor for worsening bleeding. Supervising Physician Co-Signing Physician Notes I saw the patient and agree with the findings as documented by KALIA Stanton History of Present Illness Reason for Consultation: "Bloody stools, C. diff, on Coumadin mech valves" Attending Physician: Felicity Talley MD History of Present Illness Patient is an 82 yo male with PMH of CVA, A fib, HTN, HLD, GERD, & BPH who presented to the ED for left sided weakness. GI has been asked to see patient as he has C diff & blood tinged stools. He is anticoagulated on Coumadin for his Afib. He is currently on Vancomycin 125 mg four times daily. He denies abdominal pain. He notes that his diarrhea has improved and he notes some forming up of his stool. He is noted to have blood tinged stools. INR 3.3 on Coumadin. H/H 12.3/37.4. BUN 21. K 4.1. WBC within normal limits at 10,370. It is unclear when patient had his last colonoscopy/which group this was with. No abdominal imaging during this admission. Allergies Allergy/AdvReac Type Severity Reaction Status Date / Time No Known Allergies Allergy Unverified 07/22/23 09:02 Home Medications Medication Instructions Recorded Confirmed Type vit C 250 mg-vit E 90 mg-zinc 40 1 tab PO BID 02/07/19 07/22/23 History mg-copper 1 ul-yoyflc-pfjbde capsule (PreserVision AREDS-2) rosuvastatin 40 mg tablet 40 mg PO DAILY #90 tabs 06/11/22 08/27/23 Rx docusate sodium 100 mg capsule 100 mg PO BID #180 caps 08/20/22 08/27/23 Rx folic acid 1 mg tablet 1 mg PO DAILY #90 tabs 02/15/23 08/27/23 Rx digoxin 125 mcg (0.125 mg) tablet 125 mcg PO DAILY #90 tabs 06/07/23 08/27/23 Rx tamsulosin 0.4 mg capsule 0.4 mg PO .QHS #90 caps 06/22/23 08/27/23 Rx warfarin 5 mg tablet 5 mg PO DIRECTED 07/04/23 08/27/23 History L.acidop,casei,lactis,rham-B.lact,meche 2 cap PO DAILY #30 caps 07/09/23 08/27/23 Rx 625 mg (10 billion cell) capsule (Advanced Probiotic) finasteride 5 mg tablet 5 mg PO QAM #90 tabs 07/22/23 08/27/23 Rx lisinopril 2.5 mg tablet 2.5 mg PO DAILY 08/27/23 08/27/23 History metoprolol succinate 25 mg 12.5 mg PO QAM 08/27/23 08/27/23 History tablet,extended release 24 hr Patient History Medical History THIAGO (acute kidney injury) Bacteremia (07/2023) Benign prostatic hyperplasia with urinary obstruction BPH (benign prostatic hyperplasia) Chronic kidney disease, stage 3 (moderate) GERD (gastroesophageal reflux disease) H/O: CVA (cerebrovascular accident) (01/2019) History of subarachnoid hemorrhage (01/2019) Hyperlipidemia Hypertension Left hemiparesis RLS (restless legs syndrome) Rupture of left long head biceps tendon Sepsis due to urinary tract infection (07/2023) Surgical History H/O mechanical aortic valve replacement (1984) S/P tonsillectomy Family History Brother , Twin brother Myocardial infarction Denies family history of Ovarian cancer Prostate cancer Breast cancer Colorectal cancer Social History Smoking Status: Former smoker Tobacco Type: Cigarettes Age Quit Using Tobacco: 30; Second Hand Exposure: No; Do You Dip or Chew Tobacco: No; Tobacco Cessation Education Requested by Patient: No Hx Alcohol Use: No Hx Substance Use: No Preferred Language: [place] Communication Ability: Effective Visual Impairment: No Limitations Hearing Ability: Use of Hearing Aid Pattern Fitter Required: No Beliefs That Will Affect Care: None marital status: Current Living Situation: Spouse current occupational status: retired Other Information That Helps Us Care for You: No Feels Safe at Home: Yes Safety Concerns: Feels Safe At This Time Diet: regular Diet Comment: regular caffeine: Yes during the past year weight has: remained stable Dental Care, Regularly: No Physical Activity Frequency: Other Physical Activity Frequency Comment: PHYSICAL THERAPY DUE TO STROKE Seatbelt Use: always Sunscreen Use: Yes Assistive Devices: Walker and Wheelchair Assistive Devices Comment: kanika walker Review of Systems Constitutional: no fever and no chills Respiratory: no cough and no dyspnea Cardiovascular: no chest pain Gastrointestinal: no abdominal pain diarrhea improving Physical Exam Constitutional: well developed Respiratory: normal respiratory effort Cardiovascular: Rate/Rhythm: regular rate audible mechanical valve Gastrointestinal (Abdomen): normal bowel sounds, soft, nontender, no hepatospl enomegaly Psychiatric: Orientation: alert and oriented x 3 Results & Data Vital Signs (Past 12 Hours) Vital Signs Temp Pulse Pulse Resp BP BP Pulse Ox 09/01/23 08:53 09/01/23 08:05 86 09/01/23 07:38 36.3 C L 80 20 106/67 97 08/31/23 23:15 36.5 C 83 20 119/74 95 O2 Del Method 09/01/23 08:53 Room Air 09/01/23 08:05 09/01/23 07:38 Room Air 08/31/23 23:15 Room Air PG Care Time/CCT Total # of Minutes Spent Total Time Spent with Patient: Total time spent is greater than 50% in coordination of care (as documented) at patient's floor/unit and/or counseling patient: Coding Level of Care Code 43550 INT INP/OBS CARE 375MIN Diagnoses C. difficile colitis A04.72 Rectal bleeding K62.5
--- NOTE | 2023-09-01 14:50 | Hospitalist Progress Note ---
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 Presents to the hospital with acute worsening of left-sided full-body weakness x [address] revealed no acute findings, but did reveal mild ventricular dilation "likely due to central atrophy" Patient reports he has a "metal heart valve"; spoke with MRI and they deemed the mechanical aortic valve safe; photocopied pt's card and added to paper chart Patient declined brain MRI, and MR angio head, as he is nervous his heart valve is not compatible despite reassurance that it is MRI safe CTA head and neck showed small right cavernous carotid artery aneurysm 3.3mm x2.6mm and 70% stenosis of proximal left ICA Vascular on consult, plan is for outpatient follow up with carotid US in 6 months Follow-up with neuro intervention radiology outpatient Echo on 07/04/2023 showed LVEF >70%; no ASD; resolution "did not allow assessment of PFO"; given low probability, we will not repeat echo at this time Aspirin held given higher risk of bleeding; on Coumadin (2) Left leg weakness: Plan: Acute on chronic, but complains of some thigh pain, which most likely is musculoskeletal 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 Physical therapy noted acute worsening over the past week Patient reports he was unable to get out of bed on morning of 08/27 Still complaining of left hip and thigh pain Venous Doppler: no DVT Hip and pelvis x-ray identified no acute fracture or dislocation Case management consulted in the event home care needs not met (3) Left hemiparesis: Plan: Residual; secondary to CVA in 2019 No BP, Labs, IVs in LUE Left-sided increased hemiparesisdue to late effect of old CVA (4) PAF (paroxysmal atrial fibrillation): Plan: Continuous telemonitoring Continue digoxin, warfarin, metoprolol On warfarin for both mechanical AV and a fib INR today 3.3 Check INR daily Warfain dosing: INR goal range: 2.0-2.5 T, Th, Sat dosin.5mg All other days: 5.0mg Weekly warfarin total: 27.5mg (5) Hypertension: Plan: under better control Continue metoprolol, Lisinopril (6) BPH (benign prostatic hyperplasia): Plan: Continue tamsulosin (7) Hyperlipidemia: Plan: Continue rosuvastatin (8) C. difficile colitis: Plan: stool positive for C. difficile Patient has been having diarrhea Started him on vancomycin 125 mg p.o. every 6 GI bleed with passing blood clots most likely secondary to C. difficile colitis Patient is on Coumadin due to mechanical heart valve with therapeutic INR of 3.3. Unable to discontinue or reverse INR due to presence of mechanical heart valves. H&H being monitored closely. Bleeding improving. Diarrhea improving as well. GI involved : did not have any other recommendations but To treat C. difficile Plan Disposition: Patient may need rehab or snf. DNR/DNI regular VTE PPx: Coumadin Admission and Anticipated Discharge Date Admission Date: August 27, 2023 Subjective patient says that his diarrhea is improving. He had a few episodes of bleeding per rectum with passing blood clots overnight. The bleeding is improving as well. Review of Systems Review of Systems: All systems reviewed & are unremarkable except as noted in Subjective Physical Exam Physical Exam: general: Awake, conversant Heart: S1, S2/regular rate and rhythm, no murmur rubs or gallops Lungs: Clear to auscultation bilaterally. Normal effort Abdomen: Soft/nontender/nondistended. No hepatosplenomegaly Extremities: No clubbing/cyanosis. No edema Behavior: Appropriate, cooperative Results & Data Results & Data Vital Signs (Past 12 Hours) Vital Signs Temp Pulse Pulse Resp BP Pulse Ox O2 Del Method 09/01/23 07:00 88 09/01/23 11:22 36.4 C L 86 18 98/65 L 96 Room Air 09/01/23 08:53 Room Air 09/01/23 08:05 86 09/01/23 07:38 36.3 C L 80 20 106/67 97 Room Air Laboratory Results Abnormal lab results 08/31/23 09/01/23 09/01/23 Range/Units 16:07 07:47 07:47 RBC 4.00 L (4.70-6.10) M/uL Hgb 12.3 L (14.0-18.0) g/dl Hct 37.4 L (42.0-52.0) % RDW Std Deviation 47.8 H (36.4-46.3) fL PT 32.4 H 33.8 H (9.0-12.0) Seconds INR 3.2 H 3.3 H (0.9-1.1) Chloride (98-107) mmol/L Calcium (8.6-10.3) mg/dl 09/01/23 Range/Units 07:47 RBC (4.70-6.10) M/uL Hgb (14.0-18.0) g/dl Hct (42.0-52.0) % RDW Std Deviation (36.4-46.3) fL PT (9.0-12.0) Seconds INR (0.9-1.1) Chloride 109 H (98-107) mmol/L Calcium 8.3 L (8.6-10.3) mg/dl PG Care Time/CCT Total # of Minutes Spent Total Time Spent with Patient: Total time spent is greater than 50% in coordination of care (as documented) at patient's floor/unit and/or counseling patient: Coding Level of Care Code 10805 SUB INP/OBS CARE 2/35MIN Diagnoses Stroke-like symptoms R29.90 Left leg weakness R29.898 Left hemiparesis G81.94 PAF (paroxysmal atrial fibrillation) I48.0 Hypertension I10 BPH (benign prostatic hyperplasia) N40.0 Hyperlipidemia E78.5 C. difficile colitis A04.72
[2023-09-01 15:13] LABS: Hematocrit (blood only) 38.4 % (42.0-52.0); Hemoglobin 12.6 g/dl (14.0-18.0)
[2023-09-01] MEDS: WARFARIN SOD 5 MG TAB PO SCH (16:36)
[2023-09-01] MEDS: TAMSULOSIN HCL 0.4 MG CAP PO SCH (20:51)
[2023-09-02] MEDS: VANCOMYCIN HCL 125 MG/2.5ML SOLN PO SCH ×4 (00:08→17:03)
[2023-09-02] MEDS: CHERRY SYRUP 5 ML UDP PO SCH ×4 (00:08→17:03)
[2023-09-02] MEDS: ACETAMINOPHEN 325 MG TAB PO PRN ×2 (01:34→20:37)
[2023-09-02] MEDS ORDERED: CYCLOBENZAPRINE HCL 5 MG TAB PO STA (01:51)
[2023-09-02 07:35] LABS: Hematocrit (blood only) 37.6 % (42.0-52.0); Hemoglobin 12.3 g/dl (14.0-18.0); Mean Corpuscular Hemoglobin 30.7 pg (25.0-34.0); Mean Corpuscular Hgb Conc 32.7 g/dL (32.0-36.0); Mean Corpuscular Volume 93.8 fL (80.0-100.0); Mean Platelet Volume 12.2 fL (9.4-12.4); Platelet Count 162 K/uL (130-400); RDW Coefficient of Variation 13.9 % (11.5-14.5); RDW Standard Deviation 47.6 fL (36.4-46.3); Red Blood Count 4.01 M/uL (4.70-6.10); White Blood Count 10.39 K/ul (4.8-10.8)
[2023-09-02 07:52] LABS: BUN Creatinine Ratio 17.4 (10-20); Calcium 8.2 mg/dl (8.6-10.3); Creatinine Clr Calc Pharmacy 46.3 ml/min; Est GFR (African American) 67.4 ml/min; Est GFR (Non-African American) 58.1 ml/min; Potassium 3.8 mmol/L (3.5-5.1)
[2023-09-02 08:00] LABS: INR 2.6 (0.9-1.1); Prothrombin Time 27.3 Seconds (9.0-12.0)
[2023-09-02] MEDS: METOPROLOL SUCC 25MG EXT REL TAB PO SCH (09:23)
[2023-09-02] MEDS: lisinopril 2.5 MG TAB PO SCH (09:24)
[2023-09-02] MEDS: DOCUSATE SODIUM 100 MG CAP PO SCH ×2 (09:25→20:32)
[2023-09-02] MEDS: FOLIC ACID 1 MG TAB PO SCH (09:25)
[2023-09-02] MEDS: FINASTERIDE 5 MG TAB PO SCH (09:25)
[2023-09-02] MEDS: DIGOXIN 0.125 MG TAB PO SCH (09:25)
[2023-09-02] MEDS: ROSUVASTATIN CALCIUM 20 MG TAB PO SCH (09:26)
--- NOTE | 2023-09-02 13:12 | Hospitalist Progress Note ---
Date of Service September 02, 2023 Assessment & Plan (1) Stroke-like symptoms: Plan: 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 Presents to the hospital with acute worsening of left-sided full-body weakness x [address] revealed no acute findings, but did reveal mild ventricular dilation "likely due to central atrophy" Patient reports he has a "metal heart valve"; spoke with MRI and they deemed the mechanical aortic valve safe; photocopied pt's card and added to paper chart Patient declined brain MRI, and MR angio head, as he is nervous his heart valve is not compatible despite reassurance that it is MRI safe CTA head and neck showed small right cavernous carotid artery aneurysm 3.3mm x2.6mm and 70% stenosis of proximal left ICA Vascular on consult, plan is for outpatient follow up with carotid US in 6 months Follow-up with neuro intervention radiology outpatient Echo on 07/04/2023 showed LVEF >70%; no ASD; resolution "did not allow assessment of PFO"; given low probability, we will not repeat echo at this time Aspirin held given higher risk of bleeding; on Coumadin (2) Left leg weakness: Plan: Acute on chronic, but complains of some thigh pain, which most likely is musculoskeletal 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 Physical therapy noted acute worsening over the past week Patient reports he was unable to get out of bed on morning of 08/27 Still complaining of left hip and thigh pain Venous Doppler: no DVT Hip and pelvis x-ray identified no acute fracture or dislocation Case management consulted in the event home care needs not met (3) Left hemiparesis: Plan: Residual; secondary to CVA in 2019 No BP, Labs, IVs in LUE Left-sided increased hemiparesisdue to late effect of old CVA (4) PAF (paroxysmal atrial fibrillation): Plan: Continuous telemonitoring Continue digoxin, warfarin, metoprolol On warfarin for both mechanical AV and a fib INR today 3.3 Check INR daily Warfain dosing: INR goal range: 2.0-2.5 T, Th, Sat dosin.5mg All other days: 5.0mg Weekly warfarin total: 27.5mg (5) Hypertension: Plan: under better control Continue metoprolol, Lisinopril (6) BPH (benign prostatic hyperplasia): Plan: Continue tamsulosin (7) Hyperlipidemia: Plan: Continue rosuvastatin (8) C. difficile colitis: Plan: stool positive for C. difficile Patient has been having diarrhea Started him on vancomycin 125 mg p.o. every 6 GI bleed with passing blood clots most likely secondary to C. difficile colitis. Bleeding slowing down. Still continues with diarrhea. Patient is on Coumadin due to mechanical heart valve with therapeutic INR of 3.3. Unable to discontinue or reverse INR due to presence of mechanical heart valves. H&H being monitored closely. Bleeding improving. Diarrhea improving as well. GI involved : did not have any other recommendations but To treat C. difficile Plan Disposition: Patient may need rehab or snf. DNR/DNI regular VTE PPx: Coumadin Admission and Anticipated Discharge Date Admission Date: August 27, 2023 Subjective Patient continues to have diarrhea. Per nurse, not visibly bloody today Review of Systems Review of Systems: All systems reviewed & are unremarkable except as noted in Subjective Physical Exam Physical Exam: general: Awake, conversant Heart: S1, S2/regular rate and rhythm, no murmur rubs or gallops Lungs: Clear to auscultation bilaterally. Normal effort Abdomen: Soft/nontender/nondistended. No hepatosplenomegaly Extremities: No clubbing/cyanosis. No edema Behavior: Appropriate, cooperative Results & Data Results & Data Vital Signs (Past 12 Hours) Vital Signs Temp Pulse Pulse Resp BP Pulse Ox O2 Del Method 09/02/23 11:51 36.5 C 82 18 110/74 95 Room Air 09/02/23 09:25 86 09/02/23 07:42 36.5 C 86 18 119/75 94 Room Air 09/02/23 07:00 67 09/02/23 04:30 36.4 C L 74 18 107/66 98 Room Air Laboratory Results Abnormal lab results 09/01/23 09/02/23 Range/Units 14:46 07:15 RBC 4.01 L (4.70-6.10) M/uL Hgb 12.6 L 12.3 L (14.0-18.0) g/dl Hct 38.4 L 37.6 L (42.0-52.0) % RDW Std Deviation 47.6 H (36.4-46.3) fL PT 27.3 H (9.0-12.0) Seconds INR 2.6 H (0.9-1.1) Chloride 109 H (98-107) mmol/L Calcium 8.2 L (8.6-10.3) mg/dl PG Care Time/CCT Total # of Minutes Spent Total Time Spent with Patient: Total time spent is greater than 50% in coordination of care (as documented) at patient's floor/unit and/or counseling patient: Coding Level of Care Code 65361 SUB INP/OBS CARE 2/35MIN Diagnoses Stroke-like symptoms R29.90 Left leg weakness R29.898 Left hemiparesis G81.94 PAF (paroxysmal atrial fibrillation) I48.0 Hypertension I10 BPH (benign prostatic hyperplasia) N40.0 Hyperlipidemia E78.5 C. difficile colitis A04.72
[2023-09-02] MEDS: WARFARIN SOD 5 MG TAB PO SCH (17:02)
[2023-09-02] MEDS: WARFARIN SOD 2.5 MG TAB PO SCH (17:05)
[2023-09-02] MEDS: TAMSULOSIN HCL 0.4 MG CAP PO SCH (20:35)
[2023-09-03] MEDS: VANCOMYCIN HCL 125 MG/2.5ML SOLN PO SCH ×4 (00:57→18:22)
[2023-09-03] MEDS: CHERRY SYRUP 5 ML UDP PO SCH ×4 (00:58→18:22)
[2023-09-03] MEDS: ACETAMINOPHEN 325 MG TAB PO PRN ×2 (05:58→20:02)
[2023-09-03 07:50] LABS: BUN Creatinine Ratio 17.1 (10-20); Calcium 8.3 mg/dl (8.6-10.3); Creatinine Clr Calc Pharmacy 43.3 ml/min; Est GFR (African American) 62.1 ml/min; Est GFR (Non-African American) 53.6 ml/min; Potassium 4.2 mmol/L (3.5-5.1)
[2023-09-03 07:51] LABS: Mean Corpuscular Hemoglobin 31.1 pg (25.0-34.0); Mean Corpuscular Hgb Conc 33.3 g/dL (32.0-36.0); Mean Corpuscular Volume 93.3 fL (80.0-100.0); Mean Platelet Volume 12.3 fL (9.4-12.4); Platelet Count 164 K/uL (130-400); RDW Coefficient of Variation 13.8 % (11.5-14.5); RDW Standard Deviation 46.9 fL (36.4-46.3); Red Blood Count 3.86 M/uL (4.70-6.10); White Blood Count 11.51 K/ul (4.8-10.8)
[2023-09-03 08:00] LABS: INR 2.1 (0.9-1.1); Prothrombin Time 22.3 Seconds (9.0-12.0)
[2023-09-03] MEDS: FOLIC ACID 1 MG TAB PO SCH (08:08)
[2023-09-03] MEDS: lisinopril 2.5 MG TAB PO SCH (08:09)
[2023-09-03] MEDS: METOPROLOL SUCC 25MG EXT REL TAB PO SCH (08:10)
[2023-09-03] MEDS: DOCUSATE SODIUM 100 MG CAP PO SCH ×3 (08:11→19:07)
[2023-09-03] MEDS: FINASTERIDE 5 MG TAB PO SCH (08:11)
[2023-09-03] MEDS: ROSUVASTATIN CALCIUM 20 MG TAB PO SCH (08:11)
[2023-09-03] MEDS: DIGOXIN 0.125 MG TAB PO SCH (08:12)
--- NOTE | 2023-09-03 14:12 | Hospitalist Progress Note ---
Date of Service September 03, 2023 Assessment & Plan (1) Stroke-like symptoms: Plan: 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 Presents to the hospital with acute worsening of left-sided full-body weakness x [address] revealed no acute findings, but did reveal mild ventricular dilation "likely due to central atrophy" Patient reports he has a "metal heart valve"; spoke with MRI and they deemed the mechanical aortic valve safe; photocopied pt's card and added to paper chart Patient declined brain MRI, and MR angio head, as he is nervous his heart valve is not compatible despite reassurance that it is MRI safe CTA head and neck showed small right cavernous carotid artery aneurysm 3.3mm x2.6mm and 70% stenosis of proximal left ICA Vascular on consult, plan is for outpatient follow up with carotid US in 6 months Follow-up with neuro intervention radiology outpatient Echo on 07/04/2023 showed LVEF >70%; no ASD; resolution "did not allow assessment of PFO"; given low probability, we will not repeat echo at this time Aspirin held given higher risk of bleeding; on Coumadin (2) Left leg weakness: Plan: Acute on chronic, but complains of some thigh pain, which most likely is musculoskeletal 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 Physical therapy noted acute worsening over the past week Patient reports he was unable to get out of bed on morning of 08/27 Still complaining of left hip and thigh pain Venous Doppler: no DVT Hip and pelvis x-ray identified no acute fracture or dislocation Case management consulted in the event home care needs not met (3) Left hemiparesis: Plan: Residual; secondary to CVA in 2019 No BP, Labs, IVs in LUE Left-sided increased hemiparesisdue to late effect of old CVA (4) PAF (paroxysmal atrial fibrillation): Plan: Continuous telemonitoring Continue digoxin, warfarin, metoprolol On warfarin for both mechanical AV and a fib INR today Subtherapeutic at 2.1. We will continue current Coumadin dosing. If remains subtherapeutic Tomorrow, will need to start on bridge with heparin or Lovenox. Check INR daily Warfain dosing: INR goal range: 2.0-2.5 T, , Sat dosin.5mg All other days: 5.0mg Weekly warfarin total: 27.5mg (5) Hypertension: Plan: under better control Continue metoprolol, Lisinopril (6) BPH (benign prostatic hyperplasia): Plan: Continue tamsulosin (7) Hyperlipidemia: Plan: Continue rosuvastatin (8) C. difficile colitis: Plan: stool positive for C. difficile Patient has been having diarrhea Started him on vancomycin 125 mg p.o. every 6 GI bleed with passing blood clots most likely secondary to C. difficile colitis. Bleeding slowing down. diarrhea is slowing down Patient is on Coumadin due to mechanical heart valve with INR of 2.1 today. Unable to discontinue or reverse INR due to presence of mechanical heart valves. H&H being monitored closely. Bleeding improving. Diarrhea improving as well. GI involved : did not have any other recommendations but To treat C. difficile Plan Disposition: Patient may need rehab or snf. DNR/DNI regular VTE PPx: Coumadin Admission and Anticipated Discharge Date Admission Date: August 27, 2023 Subjective Patient feels well. Diarrhea is slowing down. Review of Systems Review of Systems: All systems reviewed & are unremarkable except as noted in Subjective Physical Exam Physical Exam: general: Awake, conversant Heart: S1, S2/regular rate and rhythm, no murmur rubs or gallops Lungs: Clear to auscultation bilaterally. Normal effort Abdomen: Soft/nontender/nondistended. No hepatosplenomegaly Extremities: No clubbing/cyanosis. No edema Behavior: Appropriate, cooperative Results & Data Results & Data Vital Signs (Past 12 Hours) Vital Signs Temp Pulse Pulse Resp BP BP Pulse Ox 09/03/23 12:00 36.5 C 77 18 103/65 94 09/03/23 08:14 36.5 C 74 18 100/63 95 09/03/23 08:12 78 09/03/23 07:18 78 09/03/23 02:43 36.4 C L 79 18 105/67 95 O2 Del Method 09/03/23 12:00 Room Air 09/03/23 08:14 Room Air 09/03/23 08:12 09/03/23 07:18 09/03/23 02:43 Room Air PG Care Time/CCT Total # of Minutes Spent Total Time Spent with Patient: Total time spent is greater than 50% in coordination of care (as documented) at patient's floor/unit and/or counseling patient: Coding Level of Care Code 07774 SUB INP/OBS CARE MIN Diagnoses Stroke-like symptoms R29.90 Left leg weakness R29.898 Left hemiparesis G81.94 PAF (paroxysmal atrial fibrillation) I48.0 Hypertension I10 BPH (benign prostatic hyperplasia) N40.0 Hyperlipidemia E78.5 C. difficile colitis A04.72
[2023-09-03] MEDS: TAMSULOSIN HCL 0.4 MG CAP PO SCH (20:02)
[2023-09-04] MEDS: CHERRY SYRUP 5 ML UDP PO SCH ×5 (00:35→23:02)
[2023-09-04] MEDS: VANCOMYCIN HCL 125 MG/2.5ML SOLN PO SCH ×5 (00:35→23:00)
[2023-09-04] MEDS ORDERED: LIDOCAINE 5% 1 PATCH TD STA (05:41)
[2023-09-04 06:37] LABS: Hematocrit (blood only) 38.3 % (42.0-52.0); Hemoglobin 12.6 g/dl (14.0-18.0); Mean Corpuscular Hemoglobin 31.2 pg (25.0-34.0); Mean Corpuscular Hgb Conc 32.9 g/dL (32.0-36.0); Mean Corpuscular Volume 94.8 fL (80.0-100.0); Mean Platelet Volume 12.7 fL (9.4-12.4); Platelet Count 181 K/uL (130-400); RDW Coefficient of Variation 14.2 % (11.5-14.5); RDW Standard Deviation 49.3 fL (36.4-46.3); Red Blood Count 4.04 M/uL (4.70-6.10); White Blood Count 10.99 K/ul (4.8-10.8)
[2023-09-04 07:43] LABS: Anion Gap 4 (3-11); BUN Creatinine Ratio 20.9 (10-20); Blood Urea Nitrogen 28 mg/dl (6-23); Calcium 8.4 mg/dl (8.6-10.3); Carbon Dioxide 25 mmol/L (21-32); Chloride 109 mmol/L (98-107); Creatinine Clr Calc Pharmacy 39.7 ml/min; Est GFR (Non-African American) 48.3 ml/min; Glucose 86 mg/dl (70-99(Fasting)); Sodium 138 mmol/L (136-145)
[2023-09-04] MEDS: DIGOXIN 0.125 MG TAB PO SCH (08:10)
[2023-09-04] MEDS: DOCUSATE SODIUM 100 MG CAP PO SCH ×2 (08:12→19:40)
[2023-09-04] MEDS: lisinopril 2.5 MG TAB PO SCH (08:12)
[2023-09-04] MEDS: METOPROLOL SUCC 25MG EXT REL TAB PO SCH (08:13)
[2023-09-04] MEDS: FOLIC ACID 1 MG TAB PO SCH (08:13)
[2023-09-04] MEDS: ROSUVASTATIN CALCIUM 20 MG TAB PO SCH (08:13)
[2023-09-04] MEDS: FINASTERIDE 5 MG TAB PO SCH (08:13)
[2023-09-04 09:37] LABS: INR 1.5 (0.9-1.1); Prothrombin Time 16.1 Seconds (9.0-12.0)
[2023-09-04] MEDS ORDERED: ENOXAPARIN 1 MG/KG SC SCH (10:30)
--- NOTE | 2023-09-04 11:49 | Hospitalist Progress Note ---
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" Patient reports he has a "metal heart valve"; spoke with MRI and they deemed the mechanical aortic valve safe; photocopied pt's card and added to paper chart Patient declined brain MRI, and MR angio head, as he is nervous his heart valve is not compatible despite reassurance that it is MRI safe CTA head and neck showed small right cavernous carotid artery aneurysm 3.3mm x2.6mm and 70% stenosis of proximal left ICA Vascular on consult, plan is for outpatient follow up with carotid US in 6 months Follow-up with neuro intervention radiology outpatient Echo on 07/04/2023 showed LVEF >70%; no ASD; resolution "did not allow assessment of PFO"; given low probability, we will not repeat echo at this time Aspirin held given higher risk of bleeding; on Coumadin (2) Left leg weakness: Plan: Acute on chronic, but complains of some thigh pain, which most likely is musculoskeletal 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 Physical therapy noted acute worsening over the past week Patient reports he was unable to get out of bed on morning of 08/27 Still complaining of left hip and thigh pain Venous Doppler: no DVT Hip and pelvis x-ray identified no acute fracture or dislocation Case management consulted in the event home care needs not met (3) Left hemiparesis: Plan: Residual; secondary to CVA in 2019 No BP, Labs, IVs in LUE Left-sided increased hemiparesisdue to late effect of old CVA (4) PAF (paroxysmal atrial fibrillation): Plan: Continuous telemonitoring Continue digoxin, warfarin, metoprolol On warfarin for both mechanical AV and a fib INR today Subtherapeutic at 1.5. We will continue current Coumadin dosing. We will start him on Lovenox bridge Check INR daily Warfain dosing: INR goal range: 2.0-2.5 T, Th, Sat dosin.5mg All other days: 5.0mg Weekly warfarin total: 27.5mg (5) Hypertension: Plan: under better control Continue metoprolol, Lisinopril (6) BPH (benign prostatic hyperplasia): Plan: Continue tamsulosin (7) Hyperlipidemia: Plan: Continue rosuvastatin (8) C. difficile colitis: Plan: stool positive for C. difficile Patient has been having diarrhea Started him on vancomycin 125 mg p.o. every 6 GI bleed with passing blood clots most likely secondary to C. difficile colitis. Bleeding slowing down. diarrhea is slowing down Patient is on Coumadin due to mechanical heart valve with INR of 1.5 today. Unable to discontinue or reverse INR due to presence of mechanical heart valves. In fact he has been started on Lovenox bridge. H&H being monitored closely. Bleeding improving. Diarrhea improving as well. GI involved : did not have any other recommendations but To treat C. difficile Plan Disposition: Patient may need rehab or snf. Awaiting placement DNR/DNI regular VTE PPx: Coumadin Admission and Anticipated Discharge Date Admission Date: August 27, 2023 Subjective Patient feels well. Denies chest pain or shortness of breath. Diarrhea improving. Nurse did not report any bleeding per rectum. Noted that his INR is subtherapeutic today. We will start him on Lovenox bridge. Review of Systems Review of Systems: All systems reviewed & are unremarkable except as noted in Subjective Physical Exam Physical Exam: general: Awake, conversant Heart: S1, S2/regular rate and rhythm, no murmur rubs or gallops Lungs: Clear to auscultation bilaterally. Normal effort Abdomen: Soft/nontender/nondistended. No hepatosplenomegaly Extremities: No clubbing/cyanosis. No edema Behavior: Appropriate, cooperative Results & Data Results & Data Vital Signs (Past 12 Hours) Vital Signs Temp Pulse Pulse Resp BP BP Pulse Ox 09/04/23 11:24 36.5 C 75 18 101/66 94 09/04/23 10:20 79 09/04/23 08:12 36.6 C 76 18 126/74 92 09/04/23 08:10 82 09/04/23 07:44 09/04/23 03:00 36.5 C 68 16 109/70 96 O2 Del Method 09/04/23 11:24 Room Air 09/04/23 10:20 09/04/23 08:12 Room Air 09/04/23 08:10 09/04/23 07:44 Room Air 09/04/23 03:00 Room Air Laboratory Results Abnormal lab results 09/04/23 09/04/23 Range/Units 05:36 08:15 WBC 10.99 H (4.8-10.8) K/ul RBC 4.04 L (4.70-6.10) M/uL Hgb 12.6 L (14.0-18.0) g/dl Hct 38.3 L (42.0-52.0) % RDW Std Deviation 49.3 H (36.4-46.3) fL MPV 12.7 H (9.4-12.4) fL PT 16.1 H (9.0-12.0) Seconds INR 1.5 H (0.9-1.1) Chloride 109 H (98-107) mmol/L BUN 28 H (6-23) mg/dl BUN/Creatinine Ratio 20.9 H (10-20) Calcium 8.4 L (8.6-10.3) mg/dl PG Care Time/CCT Total # of Minutes Spent Total Time Spent with Patient: Total time spent is greater than 50% in coordination of care (as documented) at patient's floor/unit and/or counseling patient: Coding Level of Care Code 49537 SUB INP/OBS CARE 2/35MIN Diagnoses Stroke-like symptoms R29.90 Left leg weakness R29.898 Left hemiparesis G81.94 PAF (paroxysmal atrial fibrillation) I48.0 Hypertension I10 BPH (benign prostatic hyperplasia) N40.0 Hyperlipidemia E78.5 C. difficile colitis A04.72
[2023-09-04] MEDS: ENOXAPARIN 80 MG/0.8 ML SYR SQ SCH ×2 (12:15→23:01)
[2023-09-04] MEDS: WARFARIN SOD 2.5 MG TAB PO SCH (16:14)
[2023-09-04] MEDS: TAMSULOSIN HCL 0.4 MG CAP PO SCH (19:40)
[2023-09-05] MEDS: VANCOMYCIN HCL 125 MG/2.5ML SOLN PO SCH ×4 (06:09→23:04)
[2023-09-05] MEDS: CHERRY SYRUP 5 ML UDP PO SCH ×4 (06:09→23:04)
[2023-09-05 06:45] LABS: Hematocrit (blood only) 41.3 % (42.0-52.0); Hemoglobin 13.5 g/dl (14.0-18.0); Mean Corpuscular Hemoglobin 30.7 pg (25.0-34.0); Mean Corpuscular Hgb Conc 32.7 g/dL (32.0-36.0); Mean Corpuscular Volume 93.9 fL (80.0-100.0); Mean Platelet Volume 12.3 fL (9.4-12.4); Platelet Count 156 K/uL (130-400); RDW Coefficient of Variation 13.9 % (11.5-14.5); RDW Standard Deviation 47.8 fL (36.4-46.3); White Blood Count 10.87 K/ul (4.8-10.8)
[2023-09-05 06:56] LABS: Calcium 8.5 mg/dl (8.6-10.3); Carbon Dioxide 25 mmol/L (21-32); Chloride 108 mmol/L (98-107)
[2023-09-05 07:00] LABS: BUN Creatinine Ratio 23.3 (10-20); Blood Urea Nitrogen 27 mg/dl (6-23); Creatinine Clr Calc Pharmacy 45.9 ml/min; Est GFR (African American) 66.7 ml/min; Est GFR (Non-African American) 57.5 ml/min; Glucose 85 mg/dl (70-99(Fasting))
[2023-09-05 07:43] LABS: Potassium 4.5 mmol/L (3.5-5.1)
[2023-09-05] MEDS: DOCUSATE SODIUM 100 MG CAP PO SCH ×2 (08:08→20:34)
[2023-09-05] MEDS: lisinopril 2.5 MG TAB PO SCH (08:08)
[2023-09-05] MEDS: METOPROLOL SUCC 25MG EXT REL TAB PO SCH (08:08)
[2023-09-05] MEDS: FINASTERIDE 5 MG TAB PO SCH (08:08)
[2023-09-05] MEDS: FOLIC ACID 1 MG TAB PO SCH (08:09)
[2023-09-05] MEDS: DIGOXIN 0.125 MG TAB PO SCH (08:47)
[2023-09-05] MEDS: ROSUVASTATIN CALCIUM 20 MG TAB PO SCH (08:48)
[2023-09-05 09:01] LABS: INR 1.3 (0.9-1.1); Prothrombin Time 14.2 Seconds (9.0-12.0)
[2023-09-05] MEDS: ENOXAPARIN 80 MG/0.8 ML SYR SQ SCH ×2 (11:46→23:05)
--- NOTE | 2023-09-05 12:36 | Hospitalist Progress Note ---
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" Patient reports he has a "metal heart valve"; spoke with MRI and they deemed the mechanical aortic valve safe; photocopied pt's card and added to paper chart Patient declined brain MRI, and MR angio head, as he is nervous his heart valve is not compatible despite reassurance that it is MRI safe CTA head and neck showed small right cavernous carotid artery aneurysm 3.3mm x2.6mm and 70% stenosis of proximal left ICA Vascular on consult, plan is for outpatient follow up with carotid US in 6 months Follow-up with neuro intervention radiology outpatient Echo on 07/04/2023 showed LVEF >70%; no ASD; resolution "did not allow assessment of PFO"; given low probability, we will not repeat echo at this time Aspirin held given higher risk of bleeding; on Coumadin (2) Left leg weakness: Plan: Acute on chronic, but complains of some thigh pain, which most likely is musculoskeletal 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 Physical therapy noted acute worsening over the past week Patient reports he was unable to get out of bed on morning of 08/27 Still complaining of left hip and thigh pain Venous Doppler: no DVT Hip and pelvis x-ray identified no acute fracture or dislocation Case management consulted in the event home care needs not met (3) Left hemiparesis: Plan: Residual; secondary to CVA in 2019 No BP, Labs, IVs in LUE Left-sided increased hemiparesisdue to late effect of old CVA (4) PAF (paroxysmal atrial fibrillation): Plan: Continuous telemonitoring Continue digoxin, warfarin, metoprolol On warfarin for both mechanical AV and a fib INR today Subtherapeutic at 1.3. Patient has been getting Coumadin daily But had skipped a dose on 09/01 due to GI bleed. We will continue current Coumadin dosing But will give an extra dose of 2.5 mg today. he will get 5+2.5 = 7.5 mg today . Continue Lovenox bridge Check INR daily Warfain dosing: INR goal range: 2.0-2.5 T, Th, Sat dosin.5mg All other days: 5.0mg Weekly warfarin total: 27.5mg (5) Hypertension: Plan: Continue metoprolol, Lisinopril (6) BPH (benign prostatic hyperplasia): Plan: Continue tamsulosin (7) Hyperlipidemia: Plan: Continue rosuvastatin (8) C. difficile colitis: Plan: stool positive for C. difficile Patient has been having diarrhea Started him on vancomycin 125 mg p.o. every 6 Had issues with GI bleed with passing blood clots most likely secondary to C. difficile colitis. Bleeding slowing down. diarrhea is slowing down INR rather subtherapeutic currently. Started on Lovenox bridge. We will give an extra dose of Coumadin today. Watch for GI bleed. Plan Disposition: Patient will need rehab or snf. Awaiting placement DNR/DNI regular VTE PPx: Coumadin Plus Lovenox bridge Admission and Anticipated Discharge Date Admission Date: August 27, 2023 Subjective patient feels well. Diarrhea has been slowing down. Denies chest pain or shortness of breath. Review of Systems Review of Systems: All systems reviewed & are unremarkable except as noted in Subjective Physical Exam Physical Exam: general: Awake, conversant Heart: S1, S2/regular rate and rhythm, no murmur rubs or gallops Lungs: Clear to auscultation bilaterally. Normal effort Abdomen: Soft/nontender/nondistended. No hepatosplenomegaly Extremities: No clubbing/cyanosis. No edema Behavior: Appropriate, cooperative Results & Data Results & Data Vital Signs (Past 12 Hours) Vital Signs Temp Pulse Pulse Resp BP Pulse Ox O2 Del Method 09/05/23 09:30 97 H 09/05/23 08:47 90 09/05/23 07:56 36.5 C 80 18 103/66 94 Room Air 09/05/23 07:30 Room Air 09/05/23 03:56 36.4 C L 84 18 105/67 94 Room Air Laboratory Results Abnormal lab results 09/05/23 09/05/23 Range/Units 05:52 08:20 WBC 10.87 H (4.8-10.8) K/ul RBC 4.40 L (4.70-6.10) M/uL Hgb 13.5 L (14.0-18.0) g/dl Hct 41.3 L (42.0-52.0) % RDW Std Deviation 47.8 H (36.4-46.3) fL PT 14.2 H (9.0-12.0) Seconds INR 1.3 H (0.9-1.1) Chloride 108 H (98-107) mmol/L BUN 27 H (6-23) mg/dl BUN/Creatinine Ratio 23.3 H (10-20) Calcium 8.5 L (8.6-10.3) mg/dl PG Care Time/CCT Total # of Minutes Spent Total Time Spent with Patient: Total time spent is greater than 50% in coordination of care (as documented) at patient's floor/unit and/or counseling patient: Coding Level of Care Code 08058 SUB INP/OBS CARE 2/35MIN Diagnoses Stroke-like symptoms R29.90 Left leg weakness R29.898 Left hemiparesis G81.94 PAF (paroxysmal atrial fibrillation) I48.0 Hypertension I10 BPH (benign prostatic hyperplasia) N40.0 Hyperlipidemia E78.5 C. difficile colitis A04.72
[2023-09-05] MEDS ORDERED: WARFARIN SOD 2.5 MG TAB PO ONE (16:00)
[2023-09-05] MEDS: WARFARIN SOD 5 MG TAB PO SCH (16:08)
[2023-09-05] MEDS: TAMSULOSIN HCL 0.4 MG CAP PO SCH (20:33)
[2023-09-06] MEDS: VANCOMYCIN HCL 125 MG/2.5ML SOLN PO SCH ×4 (06:06→23:59)
[2023-09-06] MEDS: CHERRY SYRUP 5 ML UDP PO SCH ×4 (06:06→23:59)
[2023-09-06 06:35] LABS: BUN Creatinine Ratio 21.6 (10-20); Calcium 8.4 mg/dl (8.6-10.3); Creatinine Clr Calc Pharmacy 45.9 ml/min; Est GFR (African American) 66.7 ml/min; Est GFR (Non-African American) 57.5 ml/min; Potassium 4.3 mmol/L (3.5-5.1)
[2023-09-06 06:38] LABS: Hematocrit (blood only) 37.6 % (42.0-52.0); Hemoglobin 12.1 g/dl (14.0-18.0); Mean Corpuscular Hemoglobin 30.3 pg (25.0-34.0); Mean Corpuscular Hgb Conc 32.2 g/dL (32.0-36.0); Mean Corpuscular Volume 94.2 fL (80.0-100.0); Mean Platelet Volume 12.4 fL (9.4-12.4); Platelet Count 168 K/uL (130-400); RDW Standard Deviation 48.9 fL (36.4-46.3); Red Blood Count 3.99 M/uL (4.70-6.10); White Blood Count 9.62 K/ul (4.8-10.8)
[2023-09-06 07:18] LABS: INR 1.5 (0.9-1.1); Prothrombin Time 15.7 Seconds (9.0-12.0)
[2023-09-06] MEDS: DOCUSATE SODIUM 100 MG CAP PO SCH ×2 (08:32→20:49)
[2023-09-06] MEDS: DIGOXIN 0.125 MG TAB PO SCH (08:34)
[2023-09-06] MEDS: METOPROLOL SUCC 25MG EXT REL TAB PO SCH (08:34)
[2023-09-06] MEDS: lisinopril 2.5 MG TAB PO SCH (08:34)
[2023-09-06] MEDS: ROSUVASTATIN CALCIUM 20 MG TAB PO SCH (08:34)
[2023-09-06] MEDS: FOLIC ACID 1 MG TAB PO SCH (08:35)
[2023-09-06] MEDS: FINASTERIDE 5 MG TAB PO SCH (08:35)
[2023-09-06] MEDS: ENOXAPARIN 80 MG/0.8 ML SYR SQ SCH ×2 (11:38→23:59)
--- NOTE | 2023-09-06 12:52 | Hospitalist Progress Note ---
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" Patient reports he has a "metal heart valve"; spoke with MRI and they deemed the mechanical aortic valve safe; photocopied pt's card and added to paper chart Patient declined brain MRI, and MR angio head, as he is nervous his heart valve is not compatible despite reassurance that it is MRI safe CTA head and neck showed small right cavernous carotid artery aneurysm 3.3mm x2.6mm and 70% stenosis of proximal left ICA Vascular on consult, plan is for outpatient follow up with carotid US in 6 months Follow-up with neuro intervention radiology outpatient Echo on 07/04/2023 showed LVEF >70%; no ASD; resolution "did not allow assessment of PFO"; given low probability, we will not repeat echo at this time Aspirin held given higher risk of bleeding; on Coumadin (2) Left leg weakness: Plan: Acute on chronic, but complains of some thigh pain, which most likely is musculoskeletal 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 Physical therapy noted acute worsening over the past week Patient reports he was unable to get out of bed on morning of 08/27 Still complaining of left hip and thigh pain Venous Doppler: no DVT Hip and pelvis x-ray identified no acute fracture or dislocation Case management consulted in the event home care needs not met (3) Left hemiparesis: Plan: Residual; secondary to CVA in 2019 No BP, Labs, IVs in LUE Left-sided increased hemiparesisdue to late effect of old CVA (4) PAF (paroxysmal atrial fibrillation): Plan: Continuous telemonitoring Continue digoxin, warfarin, metoprolol On warfarin for both mechanical AV and a fib INR today Subtherapeutic at 1.5. Patient has been getting Coumadin daily But had skipped a dose on 09/01 due to GI bleed. We will continue current Coumadin dosing But Was given an extra dose on 09/05. Continue Lovenox bridge Until INR therapeutic Check INR daily Warfain dosing: INR goal range: 2.0-2.5 T, Th, Sat dosin.5mg All other days: 5.0mg Weekly warfarin total: 27.5mg (5) Hypertension: Plan: Continue metoprolol, Lisinopril (6) BPH (benign prostatic hyperplasia): Plan: Continue tamsulosin (7) Hyperlipidemia: Plan: Continue rosuvastatin (8) C. difficile colitis: Plan: stool positive for C. difficile Patient had been having diarrhea Started him on vancomycin 125 mg p.o. every 6 Had issues with GI bleed with passing blood clots most likely secondary to C. difficile colitis. no more bleeding. Stools are more formed lately. INR rather subtherapeutic currently. Started on Lovenox bridge. Watch for GI bleed. Plan Disposition: Patient will need rehab or snf. Awaiting placement DNR/DNI regular VTE PPx: Coumadin Plus Lovenox bridge Admission and Anticipated Discharge Date Admission Date: August 27, 2023 Subjective patient feels well. Denies chest pain or shortness of breath. Had formed stools today. Review of Systems Review of Systems: All systems reviewed & are unremarkable except as noted in Subjective Physical Exam Physical Exam: general: Awake, conversant Heart: S1, S2/regular rate and rhythm, no murmur rubs or gallops Lungs: Clear to auscultation bilaterally. Normal effort Abdomen: Soft/nontender/nondistended. No hepatosplenomegaly Extremities: No clubbing/cyanosis. No edema Behavior: Appropriate, cooperative Results & Data Results & Data Vital Signs (Past 12 Hours) Vital Signs Temp Pulse Pulse Resp BP BP Pulse Ox 09/06/23 11:39 36.6 C 86 18 100/63 95 09/06/23 08:34 85 09/06/23 08:07 36.5 C 85 19 102/67 95 09/06/23 07:22 88 09/06/23 04:00 36.7 C 81 18 109/72 94 O2 Del Method 09/06/23 11:39 Room Air 09/06/23 08:34 09/06/23 08:07 Room Air 09/06/23 07:22 09/06/23 04:00 Room Air Laboratory Results Abnormal lab results 09/06/23 Range/Units 06:00 RBC 3.99 L (4.70-6.10) M/uL Hgb 12.1 L (14.0-18.0) g/dl Hct 37.6 L (42.0-52.0) % RDW Std Deviation 48.9 H (36.4-46.3) fL PT 15.7 H (9.0-12.0) Seconds INR 1.5 H (0.9-1.1) Chloride 108 H (98-107) mmol/L BUN 25 H (6-23) mg/dl BUN/Creatinine Ratio 21.6 H (10-20) Calcium 8.4 L (8.6-10.3) mg/dl PG Care Time/CCT Total # of Minutes Spent Total Time Spent with Patient: Total time spent is greater than 50% in coordination of care (as documented) at patient's floor/unit and/or counseling patient: Coding Level of Care Code 34335 SUB INP/OBS CARE 2/35MIN Diagnoses Stroke-like symptoms R29.90 Left leg weakness R29.898 Left hemiparesis G81.94 PAF (paroxysmal atrial fibrillation) I48.0 Hypertension I10 BPH (benign prostatic hyperplasia) N40.0 Hyperlipidemia E78.5 C. difficile colitis A04.72
[2023-09-06] MEDS: WARFARIN SOD 5 MG TAB PO SCH (17:20)
[2023-09-06] MEDS: TAMSULOSIN HCL 0.4 MG CAP PO SCH (20:49)
[2023-09-07] MEDS: ACETAMINOPHEN 325 MG TAB PO PRN (01:29)
[2023-09-07] MEDS: CHERRY SYRUP 5 ML UDP PO SCH ×3 (05:21→17:36)
[2023-09-07] MEDS: VANCOMYCIN HCL 125 MG/2.5ML SOLN PO SCH ×3 (05:21→17:36)
[2023-09-07 07:14] LABS: Hematocrit (blood only) 36.9 % (42.0-52.0); Hemoglobin 12.2 g/dl (14.0-18.0); Mean Corpuscular Hemoglobin 31.5 pg (25.0-34.0); Mean Corpuscular Hgb Conc 33.1 g/dL (32.0-36.0); Mean Corpuscular Volume 95.3 fL (80.0-100.0); Mean Platelet Volume 12.1 fL (9.4-12.4); Platelet Count 151 K/uL (130-400); RDW Standard Deviation 48.7 fL (36.4-46.3); Red Blood Count 3.87 M/uL (4.70-6.10); White Blood Count 8.18 K/ul (4.8-10.8)
[2023-09-07 07:34] LABS: BUN Creatinine Ratio 17.6 (10-20); Calcium 8.4 mg/dl (8.6-10.3); Creatinine Clr Calc Pharmacy 42.6 ml/min; Est GFR (African American) 60.9 ml/min; Est GFR (Non-African American) 52.5 ml/min; Potassium 4.1 mmol/L (3.5-5.1)
[2023-09-07 07:47] LABS: Prothrombin Time 21.1 Seconds (9.0-12.0)
[2023-09-07] MEDS: DOCUSATE SODIUM 100 MG CAP PO SCH ×2 (08:45→20:43)
[2023-09-07] MEDS: lisinopril 2.5 MG TAB PO SCH (08:46)
[2023-09-07] MEDS: METOPROLOL SUCC 25MG EXT REL TAB PO SCH (08:46)
[2023-09-07] MEDS: FOLIC ACID 1 MG TAB PO SCH (08:46)
[2023-09-07] MEDS: ROSUVASTATIN CALCIUM 20 MG TAB PO SCH (08:46)
[2023-09-07] MEDS: DIGOXIN 0.125 MG TAB PO SCH (08:46)
[2023-09-07] MEDS: FINASTERIDE 5 MG TAB PO SCH (08:47)
[2023-09-07] MEDS: ENOXAPARIN 80 MG/0.8 ML SYR SQ SCH (12:09)
[2023-09-07] MEDS: WARFARIN SOD 4 MG TAB PO SCH (17:36)
--- NOTE | 2023-09-07 17:40 | Hospitalist Progress Note ---
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" Patient reports he has a "metal heart valve"; spoke with MRI and they deemed the mechanical aortic valve safe; photocopied pt's card and added to paper chart Patient declined brain MRI, and MR angio head, as he is nervous his heart valve is not compatible despite reassurance that it is MRI safe CTA head and neck showed small right cavernous carotid artery aneurysm 3.3mm x2.6mm and 70% stenosis of proximal left ICA Vascular on consult, plan is for outpatient follow up with carotid US in 6 months Follow-up with neuro intervention radiology outpatient Echo on 07/04/2023 showed LVEF >70%; no ASD; resolution "did not allow assessment of PFO"; given low probability, we will not repeat echo at this time Aspirin held given higher risk of bleeding; on Coumadin (2) Left leg weakness: Plan: Acute on chronic, but complains of some thigh pain, which most likely is musculoskeletal 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 Physical therapy noted acute worsening over the past week Patient reports he was unable to get out of bed on morning of 08/27 Still complaining of left hip and thigh pain Venous Doppler: no DVT Hip and pelvis x-ray identified no acute fracture or dislocation Case management consulted in the event home care needs not met (3) Left hemiparesis: Plan: Residual; secondary to CVA in 2019 No BP, Labs, IVs in LUE Left-sided increased hemiparesisdue to late effect of old CVA (4) PAF (paroxysmal atrial fibrillation): Plan: Continuous telemonitoring Continue digoxin, warfarin, metoprolol On warfarin for both mechanical AV and a fib INR today Still subtherapeutic but more than 2, stop Lovenox, increase the dose of warfarin to 4 mg every other day Warfain dosing: INR goal range: 2.0-2.5 T, Th, Sat dosin.5mg All other days: 5.0mg Weekly warfarin total: 27.5mg (5) Hypertension: Plan: Continue metoprolol, Lisinopril (6) BPH (benign prostatic hyperplasia): Plan: Continue tamsulosin (7) Hyperlipidemia: Plan: Continue rosuvastatin (8) C. difficile colitis: Plan: stool positive for C. difficile Patient had been having diarrhea Started him on vancomycin 125 mg p.o. every 6 Had issues with GI bleed with passing blood clots most likely secondary to C. difficile colitis. no more bleeding. Stools are more formed lately. INR rather subtherapeutic currently. Started on Lovenox bridge. Watch for GI bleed. Plan Disposition: Patient will need rehab or snf. Awaiting placement DNR/DNI regular VTE PPx: Coumadin Plus Lovenox bridge Admission and Anticipated Discharge Date Admission Date: August 27, 2023 Subjective patient feels well. Denies chest pain or shortness of breath. Had formed stools today. Review of Systems Review of Systems: All systems reviewed are negative, apart from the ones contained in the history. Constitutional: no fever and no chills Respiratory: no cough and no dyspnea Cardiovascular: no chest pain Gastrointestinal: no abdominal pain diarrhea improving Physical Exam Physical Exam: general: Awake, conversant Heart: S1, S2/regular rate and rhythm, no murmur rubs or gallops Lungs: Clear to auscultation bilaterally. Normal effort Abdomen: Soft/nontender/nondistended. No hepatosplenomegaly Extremities: No clubbing/cyanosis. No edema Behavior: Appropriate, cooperative Constitutional: WD/WN, vitals as above well developed, cooperative and comfortable; not in distress ENMT: Ears: + hearing impairment (hearing aid in place) Neck: trachea midline Respiratory: normal respiratory effort, lungs clear to auscultation normal respiratory effort Auscultation: + diminished lung sounds Cardiovascular: Rate/Rhythm: regular rate and regular rhythm Vessels: femoral pulses present, posterior tibial pulses present, dorsalis pedis pulses present and radial pulses present; + abnormal peripheral pulses Extremities: normal capillary refill; no edema Gastrointestinal (Abdomen): normal bowel sounds, soft, nontender, no hepatosplenomegaly Inspection/Auscultation: abdomen normal to inspection and normal bowel sounds Percussion/Palpation: abdomen soft; abdomen nontender Skin: no rashes, warm and dry Neurologic: + focal motor deficit (old L facial droo p, L arm and leg hemiparesis) and awake; + does not move all extremities and not confused Speech / Cognition: no expressive aphasia and no receptive aphasia Psychiatric: A+Ox3, euthymic affect Orientation: alert and oriented x 3 Results & Data Results & Data Vital Signs (Past 12 Hours) Vital Signs Temp Pulse Pulse Resp BP BP Pulse Ox 09/07/23 15:55 36.5 C 71 18 104/69 98 09/07/23 15:08 74 09/07/23 11:26 36.8 C 88 20 103/68 94 09/07/23 08:46 99 H 09/07/23 08:15 09/07/23 07:40 36.5 C 85 18 106/67 94 09/07/23 07:30 61 O2 Del Method 09/07/23 15:55 Room Air 09/07/23 15:08 09/07/23 11:26 Room Air 09/07/23 08:46 09/07/23 08:15 Room Air 09/07/23 07:40 Room Air 09/07/23 07:30 PG Care Time/CCT Total # of Minutes Spent Total Time Spent with Patient: Total time spent is greater than 50% in coordination of care (as documented) at patient's floor/unit and/or counseling patient: Coding Level of Care Code 15170 SUB INP/OBS CARE 3/50MIN Diagnoses Stroke-like symptoms R29.90 Left leg weakness R29.898 Left hemiparesis G81.94 PAF (paroxysmal atrial fibrillation) I48.0 Hypertension I10 BPH (benign prostatic hyperplasia) N40.0 Hyperlipidemia E78.5 C. difficile colitis A04.72
[2023-09-07] MEDS: TAMSULOSIN HCL 0.4 MG CAP PO SCH (20:43)
[2023-09-08] MEDS: VANCOMYCIN HCL 125 MG/2.5ML SOLN PO SCH ×4 (00:34→17:27)
[2023-09-08] MEDS: CHERRY SYRUP 5 ML UDP PO SCH ×4 (00:34→17:27)
[2023-09-08 06:27] LABS: INR 2.2 (0.9-1.1); Prothrombin Time 22.6 Seconds (9.0-12.0)
[2023-09-08] MEDS: DOCUSATE SODIUM 100 MG CAP PO SCH ×2 (08:25→20:07)
[2023-09-08] MEDS: DIGOXIN 0.125 MG TAB PO SCH (08:25)
[2023-09-08] MEDS: FOLIC ACID 1 MG TAB PO SCH (08:26)
[2023-09-08] MEDS: FINASTERIDE 5 MG TAB PO SCH (08:26)
[2023-09-08] MEDS: lisinopril 2.5 MG TAB PO SCH (08:26)
[2023-09-08] MEDS: METOPROLOL SUCC 25MG EXT REL TAB PO SCH (08:26)
[2023-09-08] MEDS: ROSUVASTATIN CALCIUM 20 MG TAB PO SCH (08:27)
[2023-09-08] MEDS: WARFARIN SOD 5 MG TAB PO SCH (16:00)
--- NOTE | 2023-09-08 18:10 | Hospitalist Progress Note ---
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 Presents to the hospital with acute worsening of left-sided full-body weakness x [address] revealed no acute findings, but did reveal mild ventricular dilation "likely due to central atrophy" Patient reports he has a "metal heart valve"; spoke with MRI and they deemed the mechanical aortic valve safe; photocopied pt's card and added to paper chart Patient declined brain MRI, and MR angio head, as he is nervous his heart valve is not compatible despite reassurance that it is MRI safe CTA head and neck showed small right cavernous carotid artery aneurysm 3.3mm x2.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 and 70% stenosis of proximal left ICA Vascular on consult, plan is for outpatient follow up with carotid US in 6 months Follow-up with neuro intervention radiology outpatient Echo on 07/04/2023 showed LVEF >70%; no ASD; resolution "did not allow assessment of PFO"; given low probability, we will not repeat echo at this time Aspirin held given higher risk of bleeding; on Coumadin Waiting for placement (2) Left leg weakness: Plan: Acute on chronic, but complains of some thigh pain, which most likely is musculoskeletal 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 Physical therapy noted acute worsening over the past week Patient reports he was unable to get out of bed on morning of 08/27 Still complaining of left hip and thigh pain Venous Doppler: no DVT Hip and pelvis x-ray identified no acute fracture or dislocation Case management consulted in the event home care needs not met (3) Left hemiparesis: Plan: Residual; secondary to CVA in 2019 No BP, Labs, IVs in LUE Left-sided increased hemiparesisdue to late effect of old CVA (4) PAF (paroxysmal atrial fibrillation): Plan: Continuous telemonitoring Continue digoxin, warfarin, metoprolol On warfarin for both mechanical AV and a fib INR today Still subtherapeutic but more than 2, stop Lovenox, increase the dose of warfarin to 4 mg every other day Warfain dosing: INR goal range: 2.0-2.5 T, Th, Sat dosin.5mg All other days: 5.0mg Weekly warfarin total: 27.5mg (5) Hypertension: Plan: Continue metoprolol, Lisinopril (6) BPH (benign prostatic hyperplasia): Plan: Continue tamsulosin (7) Hyperlipidemia: Plan: Continue rosuvastatin (8) C. difficile colitis: Plan: stool positive for C. difficile Patient had been having diarrhea Started him on vancomycin 125 mg p.o. every 6 Had issues with GI bleed with passing blood clots most likely secondary to C. difficile colitis. no more bleeding. Stools are more formed lately. INR rather subtherapeutic currently. Started on Lovenox bridge. Watch for GI bleed. Plan Disposition: Patient will need rehab or snf. Awaiting placement DNR/DNI regular VTE PPx: Coumadin Plus Lovenox bridge Admission and Anticipated Discharge Date Admission Date: August 27, 2023 Subjective patient feels well. Denies chest pain or shortness of breath. Had formed stools today. Review of Systems Review of Systems: All systems reviewed are negative, apart from the ones contained in the history. Constitutional: no fever and no chills Respiratory: no cough and no dyspnea Cardiovascular: no chest pain Gastrointestinal: no abdominal pain diarrhea improving Physical Exam Physical Exam: general: Awake, conversant Heart: S1, S2/regular rate and rhythm, no murmur rubs or gallops Lungs: Clear to auscultation bilaterally. Normal effort Abdomen: Soft/nontender/nondistended. No hepatosplenomegaly Extremities: No clubbing/cyanosis. No edema Behavior: Appropriate, cooperative Constitutional: WD/WN, vitals as above well developed, cooperative and comfortable; not in distress ENMT: Ears: + hearing impairment (hearing aid in place) Neck: trachea midline Respiratory: normal respiratory effort, lungs clear to auscultation normal respiratory effort Auscultation: + diminished lung sounds Cardiovascular: Rate/Rhythm: regular rate and regular rhythm Vessels: femoral pulses present, posterior tibial pulses present, dorsalis pedis pulses present and radial pulses present; + abnormal peripheral pulses Extremities: normal capillary refill; no edema Gastrointestinal (Abdomen): normal bowel sounds, soft, nontender, no hepatosplenomegaly Inspection/Auscultation: abdomen normal to inspection and normal bowel sounds Percussion/Palpation: abdomen soft; abdomen nontender Skin: no rashes, warm and dry Neurologic: + focal motor deficit (old L facial droo p, L arm and leg hemiparesis) and awake; + does not move all extremities and not confused Speech / Cognition: no expressive aphasia and no receptive aphasia Psychiatric: A+Ox3, euthymic affect Orientation: alert and oriented x 3 Results & Data Results & Data Vital Signs (Past 12 Hours) Vital Signs Temp Pulse Pulse Resp BP Pulse Ox O2 Del Method 09/08/23 15:51 36.4 C L 78 20 112/64 95 Room Air 09/08/23 11:12 36.4 C L 74 18 103/62 95 Room Air 09/08/23 08:25 77 09/08/23 07:35 36.4 C L 77 18 115/73 93 Room Air PG Care Time/CCT Total # of Minutes Spent Total Time Spent with Patient: Total time spent is greater than 50% in coordination of care (as documented) at patient's floor/unit and/or counseling patient: Coding Level of Care Code 53662 SUB INP/OBS CARE 2/35MIN Diagnoses Stroke-like symptoms R29.90 Left leg weakness R29.898 Left hemiparesis G81.94 PAF (paroxysmal atrial fibrillation) I48.0 Hypertension I10 BPH (benign prostatic hyperplasia) N40.0 Hyperlipidemia E78.5 C. difficile colitis A04.72
[2023-09-08] MEDS: TAMSULOSIN HCL 0.4 MG CAP PO SCH (20:07)
[2023-09-09] MEDS: VANCOMYCIN HCL 125 MG/2.5ML SOLN PO SCH ×5 (00:15→23:31)
[2023-09-09] MEDS: CHERRY SYRUP 5 ML UDP PO SCH ×5 (00:15→23:31)
[2023-09-09 07:46] LABS: INR 2.4 (0.9-1.1); Prothrombin Time 24.7 Seconds (9.0-12.0)
[2023-09-09] MEDS: FINASTERIDE 5 MG TAB PO SCH (09:49)
[2023-09-09] MEDS: lisinopril 2.5 MG TAB PO SCH (09:49)
[2023-09-09] MEDS: DIGOXIN 0.125 MG TAB PO SCH (09:49)
[2023-09-09] MEDS: FOLIC ACID 1 MG TAB PO SCH (09:50)
[2023-09-09] MEDS: DOCUSATE SODIUM 100 MG CAP PO SCH ×2 (09:50→21:15)
[2023-09-09] MEDS: ROSUVASTATIN CALCIUM 20 MG TAB PO SCH (09:50)
[2023-09-09] MEDS: METOPROLOL SUCC 25MG EXT REL TAB PO SCH (09:50)
[2023-09-09] MEDS: WARFARIN SOD 4 MG TAB PO SCH (17:53)
--- NOTE | 2023-09-09 19:49 | Hospitalist Progress Note ---
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 Presents to the hospital with acute worsening of left-sided full-body weakness x [address] revealed no acute findings, but did reveal mild ventricular dilation "likely due to central atrophy" Patient reports he has a "metal heart valve"; spoke with MRI and they deemed the mechanical aortic valve safe; photocopied pt's card and added to paper chart Patient declined brain MRI, and MR angio head, as he is nervous his heart valve is not compatible despite reassurance that it is MRI safe CTA head and neck showed small right cavernous carotid artery aneurysm 3.3mm x2.6mm and 70% stenosis of proximal left ICA Vascular on consult, plan is for outpatient follow up with carotid US in 6 months Follow-up with neuro intervention radiology outpatient Echo on 07/04/2023 showed LVEF >70%; no ASD; resolution "did not allow assessment of PFO"; given low probability, we will not repeat echo at this time Aspirin held given higher risk of bleeding; on Coumadin Waiting for placement (2) Left leg weakness: Plan: Acute on chronic, but complains of some thigh pain, which most likely is musculoskeletal 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 Physical therapy noted acute worsening over the past week Patient reports he was unable to get out of bed on morning of 08/27 Still complaining of left hip and thigh pain Venous Doppler: no DVT Hip and pelvis x-ray identified no acute fracture or dislocation Case management consulted in the event home care needs not met (3) Left hemiparesis: Plan: Residual; secondary to CVA in 2019 No BP, Labs, IVs in LUE Left-sided increased hemiparesisdue to late effect of old CVA (4) PAF (paroxysmal atrial fibrillation): Plan: Continuous telemonitoring Continue digoxin, warfarin, metoprolol On warfarin for both mechanical AV and a fib INR today Still subtherapeutic but more than 2, stop Lovenox, increase the dose of warfarin to 4 mg every other day Warfain dosing: INR goal range: 2.0-2.5 T, Th, Sat dosin.5mg All other days: 5.0mg Weekly warfarin total: 27.5mg (5) Hypertension: Plan: Continue metoprolol, Lisinopril (6) BPH (benign prostatic hyperplasia): Plan: Continue tamsulosin (7) Hyperlipidemia: Plan: Continue rosuvastatin (8) C. difficile colitis: Plan: stool positive for C. difficile Patient had been having diarrhea Started him on vancomycin 125 mg p.o. every 6 Had issues with GI bleed with passing blood clots most likely secondary to C. difficile colitis. no more bleeding. Stools are more formed lately. INR rather subtherapeutic currently. Started on Lovenox bridge. Watch for GI bleed. Plan Disposition: Patient will need rehab or snf. Awaiting placement DNR/DNI regular VTE PPx: Coumadin Plus Lovenox bridge Admission and Anticipated Discharge Date Admission Date: August 27, 2023 Subjective No acute issues pending placement Physical Exam Physical Exam: general: Awake, conversant Heart: S1, S2/regular rate and rhythm, no murmur rubs or gallops Lungs: Clear to auscultation bilaterally. Normal effort Abdomen: Soft/nontender/nondistended. No hepatosplenomegaly Extremities: No clubbing/cyanosis. No edema Behavior: Appropriate, cooperative Constitutional: WD/WN, vitals as above well developed, cooperative and comfortable; not in distress ENMT: Ears: + hearing impairment (hearing aid in place) Neck: trachea midline Respiratory: normal respiratory effort, lungs clear to auscultation normal respiratory effort Auscultation: + diminished lung sounds Cardiovascular: Rate/Rhythm: regular rate and regular rhythm Vessels: femoral pulses present, posterior tibial pulses present, dorsalis pedis pulses present and radial pulses present; + abnormal peripheral pulses Extremities: normal capillary refill; no edema Gastrointestinal (Abdomen): normal bowel sounds, soft, nontender, no hepatosplenomegaly Inspection/Auscultation: abdomen normal to inspection and normal bowel sounds Percussion/Palpation: abdomen soft; abdomen nontender Skin: no rashes, warm and dry Neurologic: + focal motor deficit (old L facial droo p, L arm and leg hemiparesis) and awake; + does not move all extremities and not confused Speech / Cognition: no expressive aphasia and no receptive aphasia Psychiatric: A+Ox3, euthymic affect Orientation: alert and oriented x 3 Results & Data Results & Data Vital Signs (Past 12 Hours) Vital Signs Temp Pulse Pulse Resp BP Pulse Ox O2 Del Method 09/09/23 17:32 66 09/09/23 14:41 36.5 C 74 20 96/61 L 96 Room Air 09/09/23 11:43 36.6 C 81 20 106/67 97 Room Air 09/09/23 09:49 82 PG Care Time/CCT Total # of Minutes Spent Total Time Spent with Patient: Total time spent is greater than 50% in coordination of care (as documented) at patient's floor/unit and/or counseling patient: Coding Level of Care Code 45752 SUB INP/OBS CARE 11/25MIN Diagnoses Stroke-like symptoms R29.90 Left leg weakness R29.898 Left hemiparesis G81.94 PAF (paroxysmal atrial fibrillation) I48.0 Hypertension I10 BPH (benign prostatic hyperplasia) N40.0 Hyperlipidemia E78.5 C. difficile colitis A04.72
[2023-09-09] MEDS: TAMSULOSIN HCL 0.4 MG CAP PO SCH (21:15)
[2023-09-10] MEDS ORDERED: METOPROLOL TARTRATE 1 MG/ML VIAL IV PRN (04:45)
[2023-09-10] MEDS: VANCOMYCIN HCL 125 MG/2.5ML SOLN PO SCH (05:31)
[2023-09-10] MEDS: CHERRY SYRUP 5 ML UDP PO SCH (05:31)
[2023-09-10] MEDS: ACETAMINOPHEN 325 MG TAB PO PRN (05:38)
[2023-09-10] MEDS: METOPROLOL SUCC 25MG EXT REL TAB PO SCH (09:13)
[2023-09-10] MEDS: DIGOXIN 0.125 MG TAB PO SCH (09:13)
[2023-09-10] MEDS: ROSUVASTATIN CALCIUM 20 MG TAB PO SCH (09:14)
[2023-09-10] MEDS: lisinopril 2.5 MG TAB PO SCH (09:14)
[2023-09-10] MEDS: FINASTERIDE 5 MG TAB PO SCH (09:14)
[2023-09-10] MEDS: FOLIC ACID 1 MG TAB PO SCH (09:14)
[2023-09-10] MEDS: DOCUSATE SODIUM 100 MG CAP PO SCH (09:15)
--- NOTE | 2023-09-10 09:25 | Discharge Summary ---
Date of Service September 10, 2023 Admission HPI Per Admitting Provider Jarrett is an 82-year-old male with PMH of CVA in 2019 with residual L hemiparesis (and spontaneous subarachnoid hemorrhage 01/2019), paroxysmal A-fib, HTN, HLD, GERD, and BPH. He presented via EMS for worsening left-sided weakness x1 week. Physical therapy has noted significantly weaker left side this past week. Patient reports he recently had a UTI, which has resolved. He is normally wheelchair bound; PT works with him to ambulate with a kanika-walker. Increased difficulty standing this past week. Patient denies falling. Pain is located at the left knee and hamstring; started last Monday 08/20. Patient also endorses arthritis throughout the left leg. He has been taking Tylenol 2 tabs in the evenings for pain on most days. He rates the pain 05/10. Patient reports having a Justyna Safia Mechanical Heart valve placed in 1984; will check to see if MRI appropriate. Vitals: Tachycardic at 112 bpm and hypertensive at 147/78 on arrival. ROS: Patient endorses left hamstring pain, left knee pain, intermittent diarrhea x1 (resolved), and intermittent numbness in the LLE. Patient denies fever, chills, difficulty swallowing, CP, pleuritic CP, SOB, abdominal pain, N/V, urinary retention, or burning with urination. Spoke on the phone with patient's (Mary) who says the patient has had 1 week of diarrhea, worsening left hip pain, and trouble getting out of bed. She denies any recent slurred speech or facial droop. Spoke with patient who reported his wishes were to be DNR/DNI Warfain dosing: INR goal range: 2.0-2.5 T, , Wed dosin.5mg All other days: 5.0mg Weekly warfarin total: 27.5mg Please see Dr. Covarrubias's attestation for any changes to treatment plan. Principal Diagnosis Rule out stroke C Diff infection Afib with RVR Subtherapeutic INR Discharge Exam general: Awake, conversant Heart: S1, S2/regular rate and rhythm, no murmur rubs or gallops Lungs: Clear to auscultation bilaterally. Normal effort Abdomen: Soft/nontender/nondistended. No hepatosplenomegaly Extremities: No clubbing/cyanosis. No edema Behavior: Appropriate, cooperative Constitutional WD/WN, vitals as above well developed, cooperative and comfortable; not in distress ENMT Ears: + hearing impairment (hearing aid in place) Neck trachea midline Respiratory normal respiratory effort, lungs clear to auscultation normal respiratory effort Auscultation: + diminished lung sounds Cardiovascular Rate/Rhythm: regular rate and regular rhythm Vessels: femoral pulses present, posterior tibial pulses present, dorsalis pedis pulses present and radial pulses present; + abnormal peripheral pulses Extremities: normal capillary refill; no edema Gastrointestinal (Abdomen) normal bowel sounds, soft, nontender, no hepatosplenomegaly Inspection/Auscultation: abdomen normal to inspection and normal bowel sounds Percussion/Palpation: abdomen soft; abdomen nontender Skin no rashes, warm and dry Neurologic + focal motor deficit (old L facial droop, L arm and leg hemiparesis) and awake; + does not move all extremities and not confused Speech / Cognition: no expressive aphasia and no receptive aphasia Psychiatric A+Ox3, euthymic affect Orientation: alert and oriented x 3 Discharge Data Allergies Allergy/AdvReac Type Severity Reaction Status Date / Time No Known Allergies Allergy Unverified 07/22/23 09:02 Consultations 08/27/23 14:57 ED Decision to Admit Stat 08/28/23 07:51 Consult Vascular Surgery Routine 08/31/23 16:00 Consult Gastroenterology Routine Ordered Studies 08/27/23 11:03 CT head/brain wo con Stat 08/27/23 14:40 US leg [US venous doppler LE LT] Stat 08/27/23 22:25 CT angio head w con Urgent CT angio neck with con Urgent Hospital Course (1) Stroke-like symptoms: 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 Presents to the hospital with acute worsening of left-sided full-body weakness x [address] revealed no acute findings, but did reveal mild ventricular dilation "likely due to central atrophy" Patient reports he has a "metal heart valve"; spoke with MRI and they deemed the mechanical aortic valve safe; photocopied pt's card and added to paper chart Patient declined brain MRI, and MR angio head, as he is nervous his heart valve is not compatible despite reassurance that it is MRI safe CTA head and neck showed small right cavernous carotid artery aneurysm 3.3mm x2.6mm and 70% stenosis of proximal left ICA Vascular on consult, plan is for outpatient follow up with carotid US in 6 months Follow-up with neuro intervention radiology outpatient Echo on 07/04/2023 showed LVEF >70%; no ASD; resolution "did not allow assessment of PFO"; given low probability, we will not repeat echo at this time Aspirin held given higher risk of bleeding; on Coumadin Waiting for placement (2) Left leg weakness: Acute on chronic, but complains of some thigh pain, which most likely is musculoskeletal 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 Physical therapy noted acute worsening over the past week Patient reports he was unable to get out of bed on morning of 08/27 Still complaining of left hip and thigh pain Venous Doppler: no DVT Hip and pelvis x-ray identified no acute fracture or dislocation Case management consulted in the event home care needs not met (3) Left hemiparesis: Residual; secondary to CVA in 2019 No BP, Labs, IVs in LUE Left-sided increased hemiparesisdue to late effect of old CVA (4) PAF (paroxysmal atrial fibrillation): Continue digoxin, warfarin, metoprolol had episode of Afib with RVR when Metoprolol was held 09/09 due to hypotension , for now I would not change his regiment current HR is in 90s , needs to be monitored On warfarin for both mechanical AV and a fib , Subtherapeutic INR INR today Still subtherapeutic , looking for INR 2.5-3.5 , Started on Lovenox Bridge adjust the does of Warfarin , INR upon discharge 3.1 INR needs to followed up (5) Hypertension: Continue metoprolol, Lisinopril (6) BPH (benign prostatic hyperplasia): Continue tamsulosin (7) Hyperlipidemia: Continue rosuvastatin (8) C. difficile colitis: stool positive for C. difficile Patient had been having diarrhea Started him on vancomycin 125 mg p.o. every 6 Had issues with GI bleed with passing blood clots most likely secondary to C. difficile colitis. no more bleeding. Stools are more formed lately. INR rather subtherapeutic currently. Started on Lovenox bridge. Watch for GI bleed. Plan Disposition: Patient will need rehab or snf. Awaiting placement DNR/DNI regular VTE PPx: Coumadin Plus Lovenox bridge Home Health Attestation I certify that this patient is under my care and that I, or a physicians certified surgical assistant working with me, had a face to-face encounter that meets the home health [id number] encounter requirements with this patient. The encounter with the patient was in whole, or in part, for the following medical condition, which is the primary reason for home health care (list medical condition): I certify that, based on my findings, the following services are medically necessary home health services: My clinical findings support the need for the above services because: Further, I certify that my clinical findings support that this patient is homebo und (i.e. absences from home require considerable and taxing effort and are for medical reasons or confucianism services or infrequently or of short duration when for other reasons) because: Certification for Home Health Services: Based on the above findings, I certify that this patient is confined to the home and needs intermittent fdc care, physical therapy and/or speech therapy or continues to need occupational therapy. The patient is under my care, and I have initiated the establishment of the plan of care. This patient will be followed by a physician who will periodically review the plan of care. Total Time Total Time Spent Total Time Spent (In Minutes): 45 Discharge Plan Discharge Items Patient Disposition: Transfer [facility] Reason For Visit: ACUTE WORSENING LEFT-SIDE WEAKNESS; CVA R/O Discharge Diagnosis: rule out stroke Activity: Resume your previous activity Non-emergency contact: Primary Care Provider Call non-emergency contact if: you have any medication questions Follow-up/Referrals: Julia Bravo DO [Primary Care Provider] - Jaxon Hayden MD [Physician] - Diet: Heart Healthy Addtl Attending Provider Instructions: Advised to follow-up with PCP in 1 week Advised to follow-up with vascular surgery in 6 months. They will call you with an appointment Advised to note that you have right internal carotid artery distal aneurysm for which you will need to be evaluated by neuro intervention radiologist. Pending Studies at Discharge: No Stand-Alone Forms: My 48domain Skilled Items Patient informed of condition?: Yes DNR: Yes Discharge Level of Care: Skilled Communicable Disease: No Discharge Prognosis: Stable Lines: None Urinary Catheter: No Medications and DC Order Prescriptions: New warfarin [Jantoven] 4 mg Tablet 4 mg PO TuThSa@1600 Qty: 30 0RF warfarin 5 mg Tablet 5 mg PO SuMoWeFr@1600 Qty: 30 0RF Continued docusate sodium 100 mg capsule 100 mg PO BID Qty: 180 1RF folic acid 1 mg tablet 1 mg PO DAILY Qty: 90 1RF digoxin 125 mcg (0.125 mg) tablet 125 mcg PO DAILY Qty: 90 1RF tamsulosin 0.4 mg capsule 0.4 mg PO .QHS Qty: 90 1RF rosuvastatin 40 mg tablet 40 mg PO DAILY Qty: 90 1RF finasteride 5 mg tablet 5 mg PO QAM Qty: 90 1RF PreserVision AREDS-2 [id number] fa-tsty-[id number]-mg Capsule 1 tab PO BID Rx Instructions: unable to verify, not on list from pharmacy Advanced Probiotic 625 mg (10 billion cell) Capsule 2 cap PO DAILY Qty: 30 0RF metoprolol succinate 25 mg tablet extended release 24 hr 12.5 mg PO QAM lisinopril 2.5 mg tablet 2.5 mg PO DAILY Discontinued warfarin 5 mg tablet 5 mg PO DIRECTED Rx Instructions: As direcred by anti-coagulation clinic. Discharge Orders: Discharge Order (Routine); Ordered 09/10/23 Ordered By: Nils Wheeler Admission Data Admit Date/Time: 08/27/23 16:24 Attending Provider: Nils Wheeler Admit Provider: Gunner Covarrubias Primary Care Provider: Julia Bravo Other Providers: Gunner Covarrubias; Jaxon Hayden; Naveen Price [facility]; Mckinley Lagunas Other Interventions: Discharge Summary Assessment (RN) Last Done: 09/10/23 10:51 Coding Level of Care Code 69685 INP/OBS DISCH >30 MIN Diagnoses Stroke-like symptoms R29.90 Left leg weakness R29.898 Left hemiparesis G81.94 PAF (paroxysmal atrial fibrillation) I48.0 Hypertension I10 BPH (benign prostatic hyperplasia) N40.0 Hyperlipidemia E78.5 C. difficile colitis A04.72
[2023-09-10 10:10] LABS: INR 3.1 (0.9-1.1); Prothrombin Time 31.4 Seconds (9.0-12.0)
--- NOTE | 2023-09-10 13:05 | Electrocardiogram Report ---
Test Reason : Blood Pressure : / mmHG Vent. Rate : 130 BPM Atrial Rate : 120 BPM P-R Int : 000 ms QRS Dur : 098 ms QT Int : 362 ms P-R-T Axes : 000 -39 038 degrees QTc Int : 532 ms Poor data quality, interpretation may be adversely affected Supraventricular tachycardia Left axis deviation Abnormal ECG When compared with ECG of 30-AUG-2023 01:50, Right bundle branch block is no longer Present Criteria for Inferior infarct are no longer Present Confirmed by Shan Matt ([id number]) on 09/10/2023 1:04:52 PM Referred By: REFERRED SELF Confirmed By:Shan Matt
[2023-09-11] MEDS ORDERED: METOPROLOL SUCC 50MG EXT REL TAB PO SCH (09:00)
== END 2023-09-10 11:37 | DRG 57 ==
LOC: ED 10:55 → SUATTDRO 16:24 → 2N 16:24

== ENCOUNTER 2023-11-18 14:44 | Inpatient (IN) ==
[2023-11-18] MEDS ORDERED: dilTIAZem HCl 5 MG/ML 5 ML VIAL IV STA ×2 (14:47→18:21)
[2023-11-18] MEDS: SODIUM CHLORIDE 0.9% 500 ML IV SCH ×2 (15:30→23:05)
--- NOTE | 2023-11-18 15:36 | XRay Report ---
SINGLE VIEW CHEST CLINICAL HISTORY: Atypical chest pain. FINDINGS: An AP, portable, upright chest radiograph is compared to study dated 08/27/2023. The patien t is status post midline sternotomy and cardiac valve surgery. The heart is enlarged and noting ather osclerotic calcification of the thoracic aorta. The pulmonary vasculature is noncongested. Chronic re sidual thickening is similar to previous. There is bibasilar scarring/atelectasis. The lungs and pleu ral spaces are otherwise clear. No pneumothorax is seen. The skeletal structures are osteopenic. The bony thorax is grossly intact. Arthritic change is seen in the shoulders. IMPRESSION: Cardiomegaly with no active disease in the chest. ACT 112: Negative or not required by law. Electronically signed by: Syed Chase M.D. 11/18/2023 3:35 PM
[2023-11-18 15:56] LABS: Basophils # (auto) 0.07 K/uL (0.00-0.20); Basophils % (auto) 0.8 %; Eosinophils # (auto) 0.32 K/uL (0.00-0.50); Eosinophils % (auto) 3.6 %; Hematocrit (blood only) 40.8 % (42.0-52.0); Hemoglobin 13.3 g/dl (14.0-18.0); Immature Granulocytes # (auto) 0.02 K/uL (0.01-0.20); Immature Granulocytes % (auto) 0.2 %; Lymphocytes # (auto) 2.94 K/uL (1.20-3.40); Mean Corpuscular Hemoglobin 30.6 pg (25.0-34.0); Mean Corpuscular Hgb Conc 32.6 g/dL (32.0-36.0); Mean Platelet Volume 12.6 fL (9.4-12.4); Monocytes # (auto) 0.72 K/uL (0.11-0.59); Monocytes % (auto) 8.1 %; Neutrophils # (auto) 4.83 K/uL (1.40-6.50); Neutrophils % (auto) 54.3 %; Platelet Count 176 K/uL (130-400); RDW Standard Deviation 52.7 fL (36.4-46.3); Red Blood Count 4.34 M/uL (4.70-6.10)
[2023-11-18 16:25] LABS: INR 1.7 (0.9-1.1); Partial Thromboplastin Ratio 1.3; Partial Thromboplastin Time 37 Seconds (21-31); Prothrombin Time 17.9 Seconds (9.0-12.0)
[2023-11-18 16:28] LABS: BUN Creatinine Ratio 19.5 (10-20); Blood Urea Nitrogen 23 mg/dl (6-23); Calcium 8.4 mg/dl (8.6-10.3); Carbon Dioxide 22 mmol/L (21-32); Chloride 109 mmol/L (98-107); Creatinine Clr Calc Pharmacy 45.1 ml/min; Est GFR (African American) 65.3 ml/min; Est GFR (Non-African American) 56.3 ml/min; Glucose 107 mg/dl (70-99(Fasting)); Lipase 28 U/L (11-82); Troponin I High Sensitivity 18.6 pg/ml (0-20)
[2023-11-18 17:06] LABS: iSTAT Creatinine 1.3 mg/dl (0.6-1.3); iSTAT Hemoglobin 12.9 g/dl (14.0-18.0); iSTAT Ionized Calcium 1.13 mmol/l (1.12-1.32); iSTAT Potassium 4.7 mmol/L (3.3-5.0)
[2023-11-18] MEDS ORDERED: Heparin IV Adult Wt-Based Low-Dose w/ INITIAL Bolus Protocol IV STA (17:44)
[2023-11-18] MEDS ORDERED: HEPARIN SOD (PORCINE) 1000 UNIT/ML IV ONE ×2 (18:00→19:30)
--- NOTE | 2023-11-18 18:05 | History & Physical Report ---
Date of Service November 18, 2023 Assessment & Plan (1) PAF (paroxysmal atrial fibrillation): Plan: Atrial fibs/atrial flutter with RVR EKG on admission atrial flutter with 2-1 block versus A-fib Patient with improved rate control to 80s while on 20 mg of Cardizem while in the ER. At time of admission consultation reassessment rate gradually increasing back to [id number] Metoprolol succinate 12.5 mg tartrate given, home succinate dose uptitrated 25 mg. 5 mg additional Cardizem given for rate of 130, and metoprolol on-call added. No history of reduced ejection fraction. Patient was formally on digoxin however this was discontinued and patient has underlying CKD. Responding well to initially to CCB/beta-bertha therapy, digoxin treatment deferred Magnesium ordered due to recent diarrhea which has improved. Optimize to goal 2.0.. Potassium is normal on admission Patient is on warfarin, goal INR 2.53.5 due to mechanical valve INR 1.7, warfarin given and patient started on heparin until within therapeutic range Continue INR checks daily Cardiology consulted Last echo 07/2023 with hyperdynamic EF greater than 70%, mechanical AV not well-visualized at that time, mild pulmonary hypertension noted. High sensitive troponin normal, no signs of ACS or demand ischemia on admission (2) H/O mechanical aortic valve replacement: Plan: -goal INR 2.5-3.5 -warfarin continued (3) BPH (benign prostatic hyperplasia): Plan: BPH Continue Flomax (4) Left hemiparesis: Plan: Left hemiparesis Residual due to CVA in 2019 No left upper extremity labs No new strokelike symptoms (5) History of subarachnoid hemorrhage: Plan: - no new deficits (6) Hyperlipidemia: Plan: Hyperlipidemia Continue rosuvastatin (7) Hypertension: Plan: Hypertension Continue metoprolol (8) Chronic kidney disease, stage 3 (moderate): Plan: CKD 3 Creatinine baseline approximately 1.031.3, admitting creatinine 1.18. Renally dose medications as needed BMP daily No THIAGO in admission Plan Disposition: PCU for A-fib with RVR DVT prophylaxis: Warfarin, heparinize until therapeutic CODE STATUS: DNR/DNI Diet: Clears, n.p.o. at midnight pending cardiology/ablation eval History of Present Illness Primary Care Provider: DO Jarrett Siu is an 82-year-old male with a past medical history of mechanical aortic valve replacement, CKD 3, BPH with LUTS, paroxysmal A-fib, and warfarin anticoagulation with goal INR 2.53.5 due to mechanical valve who presents with an episode of A-fib RVR. Patient follows with [facility] cardiology. Patient got 1 dose of Cardizem 20 mg IV and converted to a normal sinus rhythm. [facility] review and suspected that patient had a morphology more consistent with a flutter than A-fib and recommended patient be admitted, heparinized until INR within goal range, and to have cardiology consultation for morning evaluation. Pt reports in Nov he had a UTI c/b C diff from antibiotics. After that was treated with pills he was doing well up until was working on PT with his home health therapist when his heart rate was going very high and they recommended he be seen in the ER. Denies chest pain, denies chest pressure No shortness of breath Reports had a slight fever 1 week ago with congestion which 'cleared out ok' since then no fevers or chills. No dysuria. Does not feel like he has a UTI currently. No cough. No sputum production. No abdominal pain. Denies palpitations Has not taken warfarin today. "Lady from the drug department has been changing it. Christy keeps an eye on it. I wish I could tell what I take. I take a full 5mg and a half tablet some days" Medical History: Reviewed Medications: Reviewed Surgical History: Reviewed Family history: Reviewed Allergies: Reviewed Social History: Reviewed Code Status: DNR/DNI Allergies Allergy/AdvReac Type Severity Reaction Status Date / Time No Known Allergies Allergy Verified 11/18/23 17:14 Home Medications Medication Instructions Recorded Confirmed Type finasteride 5 mg tablet 5 mg PO QAM #90 tabs 07/22/23 11/18/23 Rx metoprolol succinate 25 mg 12.5 mg PO QAM 08/27/23 11/18/23 History tablet,extended release 24 hr tamsulosin 0.4 mg capsule 0.4 mg PO HS 10/07/23 11/18/23 History rosuvastatin 40 mg tablet 40 mg PO DAILY #90 tabs 10/18/23 11/18/23 Rx docusate sodium 100 mg capsule 100 mg PO BID #180 caps 10/27/23 11/18/23 Rx warfarin 5 mg tablet See Rx Instructions .Route 11/15/23 11/18/23 Rx .COMPLEX #90 tabs folic acid 1 mg tablet 1 mg PO HS 11/18/23 11/18/23 History vit C 250 mg-vit E 90 mg-zinc 40 1 tab PO BID 11/18/23 11/18/23 History mg-copper 1 qu-hjfqie-elhqzp capsule (PreserVision AREDS-2) Past Med/Surg History Medical History Rectal bleeding C. difficile colitis Carotid stenosis, left BPH (benign prostatic hyperplasia) Bacteremia (07/2023) Sepsis due to urinary tract infection (07/2023) THIAGO (acute kidney injury) H/O: CVA (cerebrovascular accident) (01/2019) Chronic kidney disease, stage 3 (moderate) Left hemiparesis History of subarachnoid hemorrhage (01/2019) RLS (restless legs syndrome) GERD (gastroesophageal reflux disease) Hyperlipidemia Benign prostatic hyperplasia with urinary obstruction Hypertension Rupture of left long head biceps tendon Surgical History S/P tonsillectomy H/O mechanical aortic valve replacement (1984) Family History Brother , Twin brother Myocardial infarction Denies family history of Ovarian cancer Prostate cancer Breast cancer Colorectal cancer Social History Smoking Status: Never smoker Tobacco Type: Cigarettes Age Quit Using Tobacco: 30; Second Hand Exposure: No; Do You Dip or Chew Tobacco: No; Hx Alcohol Use: No Hx Substance Use: No Preferred Language: [place] Islander Communication Ability: Effective Visual Impairment: No Limitations Hearing Ability: Use of Hearing Aid 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 NAD. Cooperative. HEENT: Atraumatic, normocephalic. Pulm: CTAB A&P. -wheezes, -rales, -rhonchi. Symmetrical chest rise. No increased work of breathing. No respiratory distress. Cardiac: regular, tachycardic. Radial pulses intact and symmetrical. No JVD Abdominal: Nontender, nondistended, soft. BS present. Extremities: Left upper extremity with chronic elbow flexion and wrist flexion, finger flexion at rest due to CVA. Is able to extend slightly up the elbow and flex at the shoulder. 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 Right upper extremity with normal elbow flexion, senior business objects developer strength. Results & Data Results & Data Vital Signs (Past 12 Hours) Vital Signs Temp Pulse Resp BP Pulse Ox O2 Del Method 11/18/23 17:45 107 H 18 98 11/18/23 17:30 91 H 21 97 11/18/23 17:30 126/85 11/18/23 17:15 91 H 20 98 11/18/23 17:00 79 20 97 11/18/23 17:00 130/93 11/18/23 16:51 94 H 19 96 11/18/23 16:51 124/92 11/18/23 16:45 103 H 20 11/18/23 16:30 75 18 11/18/23 16:30 121/80 11/18/23 16:23 103 H 21 11/18/23 16:23 143/88 H 11/18/23 16:15 69 16 95 11/18/23 16:00 72 18 96 11/18/23 15:54 79 11/18/23 15:45 75 20 95 11/18/23 15:30 84 20 99 11/18/23 15:15 88 20 97 11/18/23 15:02 98 Room Air 11/18/23 15:00 104 H 20 98 11/18/23 14:51 138 H 18 98 11/18/23 14:48 36.7 C 139 H 18 138/110 H 98 Room Air PG Care Time/CCT Total # of Minutes Spent Total Time Spent with Patient: Total time spent is greater than 50% in coordination of care (as documented) at patient's floor/unit and/or counseling patient: Coding Level of Care Code 73315 INT INP/OBS CARE 3/75MIN Diagnoses PAF (paroxysmal atrial fibrillation) I48.0 H/O mechanical aortic valve replacement Z95.2 BPH (benign prostatic hyperplasia) N40.0 Left hemiparesis G81.94 History of subarachnoid hemorrhage Z86.79 Hyperlipidemia E78.5 Hypertension I10 Chronic kidney disease, stage 3 (moderate) N18.30
[2023-11-18] MEDS ORDERED: METOPROLOL TARTRATE 25 MG TAB PO ONE (18:18)
[2023-11-18] MEDS ORDERED: WARFARIN SOD 5 MG TAB PO ONE (19:11)
--- NOTE | 2023-11-18 19:22 | Emergency Department Note ---
History of Present Illness General Chief Complaint: Tachycardia Stated Complaint: TACHYCARDIA Time Seen by Provider: 11/18/23 14:45 History of Present Illness Provider Complaint: + palpitations Onset (ago): 1 day(s) Duration: + Constant Severity: moderate Context: + occurred during exertion Arrhythmia history: + atrial fibrillation Associated symptoms: no chest pain, no shortness of breath, no syncope, no near- syncope, no nausea, no vomiting, no anxiety or no cough Home Medications Medication Instructions Recorded Confirmed Type finasteride 5 mg tablet 5 mg PO QAM #90 tabs 07/22/23 11/18/23 Rx metoprolol succinate 25 mg 12.5 mg PO QAM 08/27/23 11/18/23 History tablet,extended release 24 hr tamsulosin 0.4 mg capsule 0.4 mg PO HS 10/07/23 11/18/23 History rosuvastatin 40 mg tablet 40 mg PO DAILY #90 tabs 10/18/23 11/18/23 Rx docusate sodium 100 mg capsule 100 mg PO BID #180 caps 10/27/23 11/18/23 Rx warfarin 5 mg tablet See Rx Instructions .Route 11/15/23 11/18/23 Rx .COMPLEX #90 tabs folic acid 1 mg tablet 1 mg PO HS 11/18/23 11/18/23 History vit C 250 mg-vit E 90 mg-zinc 40 1 tab PO BID 11/18/23 11/18/23 History mg-copper 1 [id number] capsule (PreserVision AREDS-2) Allergies Allergy/AdvReac Type Severity Reaction Status Date / Time No Known Allergies Allergy Verified 11/18/23 17:14 Past Med/Surg History Medical History Rectal bleeding C. difficile colitis Carotid stenosis, left BPH (benign prostatic hyperplasia) Bacteremia (07/2023) Sepsis due to urinary tract infection (07/2023) THIAGO (acute kidney injury) H/O: CVA (cerebrovascular accident) (01/2019) Chronic kidney disease, stage 3 (moderate) Left hemiparesis History of subarachnoid hemorrhage (01/2019) RLS (restless legs syndrome) GERD (gastroesophageal reflux disease) Hyperlipidemia Benign prostatic hyperplasia with urinary obstruction Hypertension Rupture of left long head biceps tendon Surgical History S/P tonsillectomy H/O mechanical aortic valve replacement (1984) Family History Brother , Twin brother Myocardial infarction Denies family history of Ovarian cancer Prostate cancer Breast cancer Colorectal cancer Social History Smoking Status: Never smoker Tobacco Type: Cigarettes Age Quit Using Tobacco: 30; Second Hand Exposure: No; Do You Dip or Chew Tobacco: No; Hx Alcohol Use: No Hx Substance Use: No Preferred Language: Djiboutian Communication Ability: Effective Visual Impairment: No Limitations Hearing Ability: Use of Hearing Aid 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 Beliefs That Will Affect Care: None marital status: Current Living Situation: Spouse current occupational status: retired Feels Safe at Home: Yes Diet: regular Diet Comment: regular caffeine: Yes during the past year weight has: remained stable Dental Care, Regularly: No Physical Activity Frequency: Other Physical Activity Frequency Comment: PHYSICAL THERAPY DUE TO STROKE Seatbelt Use: always Sunscreen Use: Yes Assistive Devices: Walker and Wheelchair Physical Exam 2 Vital Signs: Vital Signs - 24 hr 11/18/23 14:48 11/18/23 14:51 11/18/23 15:00 Temperature 36.7 C Temperature Source Oral Pulse Rate 139 H 138 H 104 H Pulse Rate from Sp O2 Sensor 138 H 111 H Respiratory Rate 18 18 20 Blood Pressure 138/110 H Blood Pressure An n 119 Pulse Oximetry 98 98 98 Oxygen Delivery Me thod Room Air Sepsis Recent Feve r Within 48 Hours No Sepsis New/Unexpla ined Change in Men sammi Status No Sepsis Action Take n by Nursing No Action Required 11/18/23 15:02 11/18/23 15:15 11/18/23 15:30 Temperature Temperature Source Pulse Rate 88 84 Pulse Rate from Sp O2 Sensor 90 Respiratory Rate 20 20 Blood Pressure Blood Pressure An n Pulse Oximetry 98 97 99 Oxygen Delivery Me thod Room Air Sepsis Recent Feve r Within 48 Hours Sepsis New/Unexpla ined Change in Men sammi Status Sepsis Action Take n by Nursing 11/18/23 15:45 11/18/23 15:54 11/18/23 16:00 Temperature Temperature Source Pulse Rate 75 79 72 Pulse Rate from Sp O2 Sensor 70 70 Respiratory Rate 20 18 Blood Pressure Blood Pressure An n Pulse Oximetry 95 96 Oxygen Delivery Me thod Sepsis Recent Feve r Within 48 Hours Sepsis New/Unexpla ined Change in Men sammi Status Sepsis Action Take n by Nursing 11/18/23 16:15 11/18/23 16:23 11/18/23 16:23 Temperature Temperature Source Pulse Rate 69 103 H Pulse Rate from Sp O2 Sensor 72 Respiratory Rate 16 21 Blood Pressure 143/88 H Blood Pressure An n 99 Pulse Oximetry 95 Oxygen Delivery Me thod Sepsis Recent Feve r Within 48 Hours Sepsis New/Unexpla ined Change in Men sammi Status Sepsis Action Take n by Nursing 11/18/23 16:30 11/18/23 16:30 11/18/23 16:45 Temperature Temperature Source Pulse Rate 75 103 H Pulse Rate from Sp O2 Sensor Respiratory Rate 18 20 Blood Pressure 121/80 Blood Pressure An n 101 Pulse Oximetry Oxygen Delivery Me thod Sepsis Recent Feve r Within 48 Hours Sepsis New/Unexpla ined Change in Men sammi Status Sepsis Action Take n by Nursing 11/18/23 16:51 11/18/23 16:51 11/18/23 17:00 Temperature Temperature Source Pulse Rate 94 H Pulse Rate from Sp O2 Sensor 96 H Respiratory Rate 19 Blood Pressure 124/92 130/93 Blood Pressure An n 110 105 Pulse Oximetry 96 Oxygen Delivery Me thod Sepsis Recent Feve r Within 48 Hours Sepsis New/Unexpla ined Change in Men sammi Status Sepsis Action Take n by Nursing 11/18/23 17:00 11/18/23 17:15 11/18/23 17:30 Temperature Temperature Source Pulse Rate 79 91 H Pulse Rate from Sp O2 Sensor 84 92 H Respiratory Rate 20 20 Blood Pressure 126/85 Blood Pressure An n 105 Pulse Oximetry 97 98 Oxygen Delivery Me thod Sepsis Recent Feve r Within 48 Hours Sepsis New/Unexpla ined Change in Men sammi Status Sepsis Action Take n by Nursing 11/18/23 17:30 11/18/23 17:45 Temperature Temperature Source Pulse Rate 91 H 107 H Pulse Rate from Sp O2 Sensor 91 H 109 H Respiratory Rate 21 18 Blood Pressure Blood Pressure An n Pulse Oximetry 97 98 Oxygen Delivery Me thod Sepsis Recent Feve r Within 48 Hours Sepsis New/Unexpla ined Change in Men sammi Status Sepsis Action Take n by Nursing Physical Exam: GENERAL: He is oriented to person, place, and time. He appears well-developed and well-nourished. He does not appear distressed. HENT: Exam performed. - Head: Normocephalic and atraumatic. NECK: Normal range of motion. Neck supple. No JVD present. No spinous process tenderness present. CV: Tachycardic rate, irregular rhythm, normal heart sounds and intact distal pulses. There is no peripheral edema. Palpable radial pulses bue. PULM/CHEST: Effort normal and breath sounds normal. No respiratory distress. No stridor. He has no wheezes. He has no rales. ABD: The abdomen is soft. MUSC/SKEL: Pelvis stable. Pain on palpation of his distal right thigh/femur over the anterior area. NEURO: Left-sided weakness baseline from previous stroke. Course Course 1445: The patient was evaluated in room B12. A complete history and physical exam was performed Cardiac monitoring: An order was placed for continuous cardiac monitoring. The monitor shows a rate of 130-140 with atrial fibrilation rhythm interpreted by me Patient found to be in A-fib RVR. Cardizem bolus 20 mg was ordered and administered to the patient which improved the patient's ventricular rate. 1743: Vital signs stable. Troponin negative. Labs within normal limits with exception of subtherapeutic INR of 1.7. Discussed case with cardiology on-call Dr. Elkins. Patient does follow with [facility] cardiology. Patient's INR today is 1.7. Dr. Elkins reviewed the patient's EKG and states he thinks it looks more like atrial flutter. He states given the patient has mechanical heart valve he recommends that the patient be anticoagulated with heparin and then he can see the patient in the morning tomorrow and adjust his medications. [facility]. Administered Medications Sodium Chloride (Nss) 500 mls @ 125 mls/hr IV .Q4H [facility] Stop: 12/18/23 14:59 Last Admin: 11/18/23 15:30 Dose: 125 mls/hr Documented By: VANESSA Discontinued Medications Diltiazem HCl (Diltiazem Hcl 5 Mg/Ml 5 Ml Vial) 20 mg IV NOW STA Stop: 11/18/23 14:48 Last Admin: 11/18/23 14:50 Dose: 20 mg Documented By: VANESSA Co-signed By: BK Diltiazem HCl (Diltiazem Hcl 5 Mg/Ml 5 Ml Vial) 5 mg IV NOW STA Stop: 11/18/23 18:22 Last Admin: 11/18/23 18:44 Dose: 5 mg Documented By: VANESSA Co-signed By: GIGI Metoprolol Tartrate (Metoprolol Tartrate 25 Mg Tab) 12.5 mg PO ONE ONE Stop: 11/18/23 18:19 Last Admin: 11/18/23 18:44 Dose: 12.5 mg Documented By: VANESSA Medical Decision Making Laboratory Data Attestation: I reviewed the patient's lab results. 11/18/23 14:45 11/18/23 14:45 Lab Results 11/18/23 11/18/23 Range/Units 14:45 16:53 WBC 8.90 (4.8-10.8) K/ul RBC 4.34 L (4.70-6.10) M/uL Hgb 13.3 L (14.0-18.0) g/dl POC Hgb 12.9 L (14.0-18.0) g/dl Hct 40.8 L (42.0-52.0) % POC Hct 38 L (42-52) % MCV 94.0 (80.0-100.0) fL MCH 30.6 (25.0-34.0) pg MCHC 32.6 (32.0-36.0) g/dL RDW Std Deviation 52.7 H (36.4-46.3) fL RDW Coeff of Ayse 15.0 H (11.5-14.5) % Plt Count 176 (130-400) K/uL MPV 12.6 H (9.4-12.4) fL Immature Gran % (Auto) 0.2 % Neut % (Auto) 54.3 % Lymph % (Auto) 33.0 % Richardson % (Auto) 8.1 % Eos % (Auto) 3.6 % Baso % (Auto) 0.8 % Neut # (Auto) 4.83 (1.40-6.50) K/uL Lymph # (Auto) 2.94 (1.20-3.40) K/uL Richardson # (Auto) 0.72 H (0.11-0.59) K/uL Eos # (Auto) 0.32 (0.00-0.50) K/uL Baso # (Auto) 0.07 (0.00-0.20) K/uL Immature Gran # (Auto) 0.02 (0.01-0.20) K/uL PT 17.9 H (9.0-12.0) Seconds INR 1.7 H (0.9-1.1) APTT 37 H (21-31) Seconds PTT Ratio 1.3 POC Sodium 140 (135-144) mmol/L Sodium TNP POC Potassium 4.7 (3.3-5.0) mmol/L Potassium TNP POC Chloride 108 (101-112) mmol/L Chloride 109 H (98-107) mmol/L Carbon Dioxide 22 (21-32) mmol/L POC Total CO2 25 (24-31) mmol/L Anion Gap TNP POC Anion Gap 13.0 L (16-25) mmol/L POC BUN 22 H (7-18) mg/dl BUN 23 (6-23) mg/dl Creatinine 1.18 (0.6-1.4) mg/dl POC Creatinine 1.3 (0.6-1.3) mg/dl Est Cr Clr Drug Dosing 45.1 ml/min Est GFR ( Amer) 65.3 ml/min Est GFR (Non-Af Amer) 56.3 ml/min BUN/Creatinine Ratio 19.5 (10-20) Glucose 107 H (70-99(Fasting)) mg/dl POC Glucose (other) 109 H (70-99) mg/dl Calcium 8.4 L (8.6-10.3) mg/dl POC Ioniz Calcium Clemente 1.13 (1.12-1.32) mmol/l Magnesium TNP Troponin I High Sens 18.6 (0-20) pg/ml Lipase 28 (11-82) U/L Imaging Data Attestation: I personally reviewed and interpreted this imaging study as follows: My Impression: Chest x-ray: No significant change from the x-ray on August 2023 Radiologist's Impression: Chest X-Ray 11/18/23 14:47 SINGLE VIEW CHEST CLINICAL HISTORY: Atypical chest pain. FINDINGS: An AP, portable, upright chest radiograph is compared to study dated 08/27/2023. The patient is status post midline sternotomy and cardiac valve surgery. The heart is enlarged and noting atherosclerotic calcification of the thoracic aorta. The pulmonary vasculature is noncongested. Chronic residual thickening is similar to previous. There is bibasilar scarring/atelectasis. The lungs and pleural spaces are otherwise clear. No pneumothorax is seen. The skeletal structures are osteopenic. The bony thorax is grossly intact. Arthritic change is seen in the shoulders. IMPRESSION: Cardiomegaly with no active disease in the chest. ACT 112: Negative or not required by law. Electronically signed by: Syed Chase M.D. 11/18/2023 3:35 PM ECG Data Attestation: I personally reviewed and interpreted this ECG as follows: Additional Comments: EKG #1 at 1448: Atrial fibrillation with a rate of 139. QRS [address] elevation or ST depression. EKG #2 at 1454 status post Cardizem 20 mg IV bolus: Atrial fibrillation with a rate of 105. QRS [address] elevation or ST depression. [facility] Narrative 1445: The patient was evaluated in room B12. A complete history and physical exam was performed Cardiac monitoring: An order was placed for continuous cardiac monitoring. The monitor shows a rate of 130-140 with atrial fibrilation rhythm interpreted by me Patient found to be in A-fib RVR. Cardizem bolus 20 mg was ordered and administered to the patient which improved the patient's ventricular rate. 1743: Vital signs stable. Troponin negative. Labs within normal limits with exception of subtherapeutic INR of 1.7. Discussed case with cardiology on-call Dr. Elkins. Patient does follow with [facility] cardiology. Patient's INR today is 1.7. Dr. Elkins reviewed the patient's EKG and states he thinks it looks more like atrial flutter. He states given the patient has mechanical heart valve he recommends that the patient be anticoagulated with heparin and then he can see the patient in the morning tomorrow and adjust his medications. [facility] Impression & Plan Atrial flutter, Subtherapeutic international normalized ratio (INR) Critical Care Time Critical Care Time: Yes Total Critical Care Time: 48 I have personally spent greater than 48 minutes of critical care time in the direct management of this patient. This includes bedside care, interpretation of diagnostic studies, and testing, discussion with consultants, patient, and family members, and other required patient management activities. This 48 minutes is in excess of all separately billable procedures. Discharge Plan Visit Data Chief Complaint: Tachycardia Stated Complaint: TACHYCARDIA ED Provider: Ferdinand Benitez Discharge Problem: Atrial flutter, Subtherapeutic international normalized ratio (INR) Patient Disposition: Admitted As Inpatient Forms Stand Alone Forms: My [facility] Prescriptions Prescriptions: No Action rosuvastatin 40 mg tablet 40 mg PO DAILY Qty: 90 1RF docusate sodium 100 mg capsule 100 mg PO BID Qty: 180 1RF warfarin 5 mg tablet See Rx Instructions .ROUTE .COMPLEX Qty: 90 1RF Rx Instructions: TAKES 5 MG ON MON, WED, & FRI., THEN 2.5 MG ON SUN, TUES, THURS, & SAT. EVENINGS finasteride 5 mg tablet 5 mg PO QAM Qty: 90 1RF tamsulosin 0.4 mg capsule 0.4 mg PO HS PreserVision AREDS-2 250-90-40-1 mg Capsule 1 tab PO BID folic acid 1 mg tablet 1 mg PO HS metoprolol succinate 25 mg tablet extended release 24 hr 12.5 mg PO QAM Referrals Referrals: Julia Bravo DO [Primary Care Provider] -
[2023-11-18] MEDS: HEPARIN SODIUM/DEXTROSE 25,000 UNITS/500 ML BAG IV SCH (19:59)
[2023-11-18] MEDS ORDERED: ACETAMINOPHEN 325 MG TAB PO PRN (22:00)
[2023-11-18] MEDS ORDERED: METOPROLOL TARTRATE 1 MG/ML VIAL IV PRN (22:00)
[2023-11-18] MEDS ORDERED: WARFARIN SOD 2.5 MG TAB PO SCH (22:00)
[2023-11-18] MEDS: DOCUSATE SODIUM 100 MG CAP PO SCH (23:06)
[2023-11-18] MEDS: FOLIC ACID 1 MG TAB PO SCH (23:07)
[2023-11-18] MEDS: TAMSULOSIN HCL 0.4 MG CAP PO SCH (23:08)
[2023-11-18] MEDS: CEROVITE ADV FORMULA TAB PO SCH (23:09)
--- OUTSIDE RECORDS SUMMARY | 2023-11-19 01:12 | External Medical Summary | Summary of Care ---
Author Name Unknown Organization [facility] Address [address] [place] [address] Phone [phone] Care Team Providers Care Radiology Physician Assistant Name Role Phone LennyJulia wright DO Primary Care Provider [phone] Reason for Visit * Reason Comments Dosage Adjustment Via Phone (anticoag Cl inic) Encounter Details Date Type Department Care Team (Latest Contact Info) Description 11/04/2023 6:00 AM [facility] Anticoagulation Pharmacy Call Center [phone] [place] [address] [facility] [address] [place] [address] S/P aortic valve replacement with metallic valve* Allergies No known active allergiesdocumented as of this encounter (statuses as of 11/04/2023) Medications Medication Sig Dispensed Refills Start Date End Date Status warfarin sodium (COUMADIN) 5 MG Tablet Take 1 Tab by mouth every evening. As per anti-coagulation clinic. 30 Tab 0 03/31/2019 Active Acetaminophen (TYLENOL) 325 MG CAPS Take 2 Tabs by mouth every 4 hours as needed for Pain, Mild, Pain, Moderate or Pain, Severe. 100 Cap 0 03/31/2019 Active Docusate Sodium 100 MG Tablet Take 1 Tab by mouth 2 times a day. 60 Tab 0 03/31/2019 Active tamsulosin (FLOMAX) 0.4 MG Capsule Take 1 Cap by mouth daily. 30 Cap 0 03/31/2019 Active MEDICAL INSTRUCTIONS Use as directed. Nursing, PT/OT DX: nontraumatic subcortical cerebral hemorrhage, left hemiparesis, BPH, HTN 1 Each 1 03/31/2019 Active PreserVision AREDS 2 Oral Capsule Take 1 Capsule by mouth in the morning and 1 Capsule before bedtime. 0 Active Folic Acid 1 MG Oral TabletIndications:S /P AVR (aortic valve replacement),Anemia , unspecified type Take 1 Tab by mouth daily. 90 Tab 3 02/25/2021 Active Rosuvastatin Calcium 40 MG Oral Tablet (Crestor)Indication s:Dyslipidemia, goal LDL below 70 TAKE ONE TABLET BY MOUTH EVERY DAY 30 Tablet 11 02/24/2022 Active Finasteride 5 MG Oral Tablet (Proscar)Indication s:BPH with obstruction/lower urinary tract symptoms Take 1 Tablet by mouth in the morning. 90 Tablet 3 07/27/2023 Active Metoprolol Succinate ER 25 MG Oral Tablet Extended Release 24 Hour (Toprol XL)Indications:HTN, goal below 130/80,S/P AVR (aortic valve replacement),PAF (paroxysmal atrial fibrillation) ([facility]) Take 0.5 Tablets by mouth in the morning. 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 current use of anticoagulant therapy 1 Overview: ICD-10 update of inactive term Hearing loss BPH with obstruction/lower urinary tract symptom s documented as of this encounter (statuses as of 11/04/2023) Resolved Problems Problem Noted Date Diagnosed Date Resolved Date History of mechanical aortic valve replacement 02/13/2019 03/08/2019 Acute bacterial conjunctivitis of left eye 02/12/2019 03/08/2019 Supratherapeutic INR 02/07/2019 019 Aortic valve disorder 08/10/20012018 Cox catheter in place 06/2019 documented as of this encounter (statuses as of 11/04/2023) Social History Tobacco Use Types Packs/Day Years Used Date Smoking Tobacco: Former Smokeless Tobacco: Former Chew Alcohol Use Standard Drinks/Week Comments No 0 (1 standard drink = 0.6 oz pur e alcohol) Hunger Vital Sign Answer Date Recorded Within the past 12 months, y ou worried that your food would run out before you got the money to buy more. Never true 10/05/20 23 Within the past 12 months, t he food you bought just didn't last and you didn't have money to get more. Never true 10/05/2023 Sex and Gender Information Value Date Recorded Sex Assigned at Not on file Gender Identity Not on file Sexual Orientation Not on file Job Start Date Occupation Industry Not on file Not on file Not on file documented as of this encounter Progress Notes * Marleen Durán PHARM Tech - 11/04/2023 9:47 AM EST Contacts Type Contact Phone/Fax 11/04/2023 09:42 AM EST Phone (Outgoing) MARY BANSAL (Emergency Contact) [phone] Subjective Patient Findings Negatives: Signs/symptoms of bleeding, Change in health, Change in activity, Upcoming invasive procedure, Missed doses, Extra doses, Change in medications, Change in diet/appetite, Bruising Advised patient to contact Anticoagulation Clinic if any unusual bruising or bleeding, recent illness, changes in medication, or questions/concerns. PT/INR results, Coumadin dose instructions, and next PT/INR date communicated as noted by Pharmacist: Yes OMEGA ANNA 11/04/2023, 9:47 AM * [facility] - 11/04/2023 8:43 AM EST Images from the original note were not included. Coumadin Clinic (region specific) Objective Current Warfarin Dose As of 11/04/2023 Warfarin maintenance plan: 5 mg (5 mg x 1) every Mon, Wed, Fri; 2.5 mg (5 mg x 0.5) all other days INR Result As of 11/04/2023 INR goal: 2.0-2.5 INR used for dosin.9 (11/03/2023) Assessment & Plan Warfarin Plan As of 11/04/2023 Full warfarin instructions: 11/04: 5 mg; Otherwise 2.5 mg every Tue, Jessi, Sat; 5 mg all other days Next INR check: 11/17/2023 Repeat PT/INR in 2 week(s) Weekly dose: increased Additional Dosing Information: Description GML W [employer] F Tech to contact patient with dose instructions as noted. Verónica Stanley RPh 11/04/2023, 8:43 AM documented in this encounter Plan of Treatment Upcoming Encounters Date Type Department Care Team (Late st Contact Info) Description 01/11/2024 1:30 PM EDT Office Visit Cardiology [address] [place] [address] Tam Yeung PA-C [address] [place] [address] 01/18/2024 2:00 PM EDT [facility] [place] [address] Shawn Villanueva MD [address] [place] [address] Health Maintenance Due Date Last Done Comments COVID-19 Vaccine (#1) 06/26/1941 Depression Screening 1950 Albumin/Creatinine Ratio 1956 DTaP,Tdap,and Td Vaccines (1 - Tdap) 1957 Zoster Vaccines (1 of 2) 1988 Pneumococcal Vaccine: 65+ Years (2 - PCV) 12/01/2013 12/01/2012 GFR 01/19/2023 01/19/2022, 01/30, 08/09/2020, Additional history exists Influenza Vaccine (FLU shot) (#1) 2023 GARDASIL-HPV IMMUNIZATION SERIES Aged Out No longer eligible based on patient's age to complete this topic Hepatitis B Aged Out No longer eligi ble based on patient's age to complete this topic MENINGOCOCCAL (MENACTRA/MENVEO) Aged Out No longer eligible based on patient's age to complete this topic documented as of this encounter Medical Devices Not on filedocumented as of this encounter Visit Diagnoses Diagnosis S/P aortic valve replacement with metallic valve- Primary Heart valve replaced by other means documented in this encounter Advance Directives Latest Code Status on File Code Status Date Activated Date Inactivated Comments Full Code 02/07/2019 10:53 AM 02/13/2019 11:40 PM This order reflects the patients wishes and were consensually agreed upon. Question Answer Comments Discussion of Advance Directives occurred with: Patient Does the patient have a Living Will? No Does the patient have Health Care Power of Right Of Way Agent? No Care Teams Radiology Physician Assistant Relationship Specialty Start Date End Date Julia Bravo DO [address] [facility] [address] [place] [address] PCP - General Family Medicine 11/05/22 documented as of this encounter
--- OUTSIDE RECORDS SUMMARY | 2023-11-19 01:12 | External Medical Summary ---
Author Name Unknown Address Unknown Organization [id number]:[facility] [place] [address] [place] [address] Laboratory Report Ordering Provider Test Date Status TERIDANIELTINA 11/03/2023 11:51:00 Final Standing order for pt/inr. < br/>Please draw pt/inr every 1 to 4 weeks as requested
Results to [facility]

Warfarin Therapy
INR: 2.0-3.0 conventional anticoagulation
INR: 2.5-3.5 high intensity anticoagulation Observation Date Value Abnormality Reference (Units ) Status PT 11/03/2023 11:51:00 21.7 Above high normal 11 .6-15.2 (seconds) Final INR 11/03/2023 11:51:00 1.9 Above high normal 0. 8-1.2 Final Performing Location [facility] [place] [facility] [address] [facility] [address]
--- OUTSIDE RECORDS SUMMARY | 2023-11-19 01:12 | External Medical Summary ---
Author Name Unknown Address Unknown Organization [id number]:[facility] [address] [place] [address] Laboratory Report Ordering Provider Test Date Status HANH WILLIAMSON 11/17/2023 11:59:00 Final Standing order for pt/inr. < br/>Please draw pt/inr every 1 to 4 weeks as requested
Results to [facility]

Warfarin Therapy
INR: 2.0-3.0 conventional anticoagulation
INR: 2.5-3.5 high intensity anticoagulation Observation Date Value Abnormality Reference (Units ) Status PT 11/17/2023 11:59:00 20.4 Above high normal 11 .6-15.2 (seconds) Final INR 11/17/2023 11:59:00 1.7 Above high normal 0. 8-1.2 Final Performing Location [facility] [address] [place] [address]
--- OUTSIDE RECORDS SUMMARY | 2023-11-19 01:12 | External Medical Summary | Summary of Care ---
Author Name Unknown Organization [facility] Address [address] [place] [address] Phone [phone] Care Team Providers Care Certified Genetic Counselor Name Role Phone Julia Bravo DO Primary Care Provider +1- [phone] Encounter Details Date Type Department Care Team (Late st Contact Info) Description 11/18/2023 Population Health External Data Unspecified Department Allergies No known active allergiesdocumented as of this encounter (statuses as of 11/18/2023) Medications Medication Sig Dispensed Refills Start Date [...] AVR (aortic valve replacement),PAF (paroxysmal atrial fibrillation) ([facility]) Take 0.5 Tablets by mouth in the morning. 45 Tablet 3 07/27/2023 Active documented as of this encounter (statuses as of 11/18/2023) Active Problems Problem Noted Date Diagnosed Date RLS (restless legs syndrome) 03/14/2019 Dyslipidemia, goal LDL below 70 03/08/2019 Gastroesophageal reflux disease without esophagi tis 03/08/2019 Slow transit constipation 03/08/2019 History of subarachnoid hemorrhage 03/08/2019 Left hemiparesis 02/14/2019 Nontraumatic subcortical hemorrhage of cerebral hemisphere 02/07/2019 S/P aortic valve replacement with metallic valve 08/10/2001 HTN, goal below 140/90 08/10/2001 snf current use of anticoagulant therapy 1 Overview: ICD-10 update of inactive term Hearing loss BPH with obstruction/lower urinary tract symptom s documented as of this encounter (statuses as of 11/18/2023) Resolved Problems Problem Noted Date Diagnosed Date Resolved Date History of mechanical aortic valve replacement 02/13/2019 03/08/2019 Acute bacterial conjunctivitis of left eye 02/12/2019 03/08/2019 Supratherapeutic INR 02/07/2019 019 Aortic valve disorder 08/10/20012018 Cox catheter in place 06/2019 documented as of this encounter (statuses as of 11/18/2023) Social History Tobacco Use Types Packs/Day Years [...] on file documented as of this encounter Plan of Treatment Upcoming Encounters Date Type Department Care Team (Late st Contact Info) Description 01/11/2024 1:30 PM EDT Office Visit Cardiology [address] [place] [address] Tam Yeung PA-C [address] [place] [address] 01/18/2024 2:00 PM EDT Office Visit Urology, [facility] [address] [place] [address] [facility]ue[facility] [address] [place] [address] Health Maintenance Due Date Last Done Comments [...] Not on filedocumented as of this encounter Advance Directives Latest Code Status on File Code Status Date Activated Date Inactivated Comments Full Code 02/07/2019 10:53 AM 02/13/2019 11:40 PM This order reflects the patients wishes and were consensually agreed upon. Question Answer Comments Discussion of Advance Directives occurred with: Patient Does the patient have a Living Will? No Does the patient have Health Care Power of Dust Brush Assembler? No Care Teams Certified Genetic Counselor Relationship Specialty Start Date End Date Julia Bravo DO [address] [facility] 2 [place] [address] PCP - General Family Medicine 11/05/22 documented as of this encounter
--- OUTSIDE RECORDS SUMMARY | 2023-11-19 01:13 | External Medical Summary | Summary of Care ---
Author Name Unknown Organization [facility] Address [address] [place] [address] Phone [phone] Care Team Providers Care Neuropsychologist Name Role Phone Julia Bravo DO Primary Care Provider +1- [phone] Reason for Visit * Reason Onset Date Comments Advice 09/29/2023 Encounter Details Date Type Department Care Team (Late st Contact Info) Description 09/29/2023 Telephone Cardiology, [facility] [address] [place] [address] Tam Yeung PA-C [address] [place] [address] Advice Allergies No known active allergiesdocumented as of this encounter (statuses as of 10/07/2023) Medications Medication Sig Dispensed Refills Start Date [...] valve replacement),PAF (paroxysmal atrial fibrillation) ([facility]) Take 0.5 Tablets by mouth in the morning. 45 Tablet 3 07/27/2023 Active documented as of this encounter (statuses as of 10/07/2023) Active Problems Problem Noted Date Diagnosed Date RLS (restless legs syndrome) 03/14/2019 Dyslipidemia, goal LDL below 70 03/08/2019 Gastroesophageal reflux disease without esophagi tis 03/08/2019 Slow transit constipation 03/08/2019 History of subarachnoid hemorrhage 03/08/2019 Left hemiparesis 02/14/2019 Nontraumatic subcortical hemorrhage of cerebral hemisphere 02/07/2019 S/P aortic valve replacement with metallic valve 08/10/2001 HTN, goal below 140/90 08/10/2001 group home current use of anticoagulant therapy 1 Overview: ICD-10 update of inactive term Hearing loss BPH with obstruction/lower urinary tract symptom s documented as of this encounter (statuses as of 10/07/2023) Resolved Problems Problem Noted Date Diagnosed Date Resolved Date History of mechanical aortic valve replacement 02/13/2019 03/08/2019 Acute bacterial conjunctivitis of left eye 02/12/2019 03/08/2019 Supratherapeutic INR 02/07/2019 019 Aortic valve disorder 08/10/20012018 Cox catheter in place 06/2019 documented as of this encounter (statuses as of 10/07/2023) Social History Tobacco Use Types Packs/Day Years [...] on file documented as of this encounter Miscellaneous Notes * Telephone Encounter - Uziel Flores RN - 10/07/2023 2:03 PM EST Received a call from Cecy Walters from home nursing and was asking if the patient should be taking hisdigoxin and metoprolol. Reviewed the message with her from Tma Yeung and explained also that Dr. Chang's office was notified also of Tam's message. She also stated the patient fell [facility]. Cecy stated the patient was seen by the physical therapist today and he stated that the patient is having severe pain in his hip. She sttaed the therapist and her noticed outward rotation and shortening of the leg. I told her to call 911 and have the patient transported to [facility] for further evaluation that the signs he has are possible fractured hip. They are going to call 911. * Telephone Encounter - Giovanni Fabian LPN - 10/05/2023 4:01 PM EST Called and informed Dr. Bravo's office of Tam's message. * Telephone Encounter - Tam Yeung PA-C - 10/05/2023 3:48 PM EST It is very difficult to say what is needed at this time. Cardiology was not involved in the recent hospitalization which was complicated by supraventricular arrhythmia, ? atrial flutter with RVR. Hopefully he was not discharged with an uncontrolled heart rate/rhythm. Continue as prescribed until properly evaluated and EKG updated/reviewed. Tam Yeung PA-C Department of Cardiology * Telephone Encounter - Carleen Briggs OSA - 09/29/2023 3:51 PM EST MALLORIE Sam with [facility] Landa: Dr. Bravo's office called to request a return call to verify patient's medications. Cecy states that patient was recently hospitalized for stroke like symptoms and wasgiven Lisinopril, Digoxin, and Metoprolol. Patient has an upcoming appointment on 10/12/2023 with their office and they would like to clarify what medications should be on and what should be discontinued. Cecy also stated that if needed she can also fax over records as well. Please advise and return Cecy's call. documented in this encounter Plan of Treatment Upcoming Encounters Date Type Department Care Team (Late st Contact Info) Description 10/20/2023 9:20 AM EST Laboratory Lab Mobile Phlebotomy [facility] [address] [place] [address] [facility] Mobile Home Draw [address] [place] [address] 10/21/2023 6:00 AM EST Anticoagulation Pharmacy Call Center [address] [facility] [place] [address] [facility] 58 60 [facility] [place] [address] 01/11/2024 1:30 PM EDT Office Visit Cardiology [address] [place] [address] Tam Yeung PA-C [address] [place] [address] 01/18/2024 2:00 PM EDT Office Visit Urology, [facility] [address] [place] [address] Shawn Villanueva MD [address] [facility] [address] [place] [phone] Health Maintenance Due Date Last Done Comments [...] the patient have Health Care Power of Physical Chemistry Teacher? No Care Teams Neuropsychologist Relationship Specialty Start Date End Date Julia Bravo DO [address] [place] [address] PCP - General Family Medicine 11/05/22 documented as of this encounter
--- OUTSIDE RECORDS SUMMARY | 2023-11-19 01:13 | External Medical Summary | Summary of Care ---
Author Name Unknown Organization [facility] Address [address] [place] [address] Phone [phone] Care Team Providers Care Vice President Global Digital Marketing Name Role Phone Juila Bravo DO Primary Care Provider +1- [phone] Encounter Details Date Type Department Care Team (Late st Contact Info) Description 10/07/2023 Result Scan Unspecified Department <No scans attached> Allergies No known active allergiesdocumented as of this encounter (statuses as of 10/11/2023) Medications Medication Sig Dispensed Refills Start Date [...] valve replacement),PAF (paroxysmal atrial fibrillation) ([facility]) Take 0.5 Tablets by mouth in the morning. 45 Tablet 3 07/27/2023 Active documented as of this encounter (statuses as of 10/11/2023) Active Problems Problem Noted Date Diagnosed Date RLS (restless legs syndrome) 03/14/2019 Dyslipidemia, goal LDL below 70 03/08/2019 Gastroesophageal reflux disease without esophagi tis 03/08/2019 Slow transit constipation 03/08/2019 History of subarachnoid hemorrhage 03/08/2019 Left hemiparesis 02/14/2019 Nontraumatic subcortical hemorrhage of cerebral hemisphere 02/07/2019 S/P aortic valve replacement with metallic valve 08/10/2001 HTN, goal below 140/90 08/10/2001 [employer] current use of anticoagulant therapy 1 Overview: ICD-10 update of inactive term Hearing loss BPH with obstruction/lower urinary tract symptom s documented as of this encounter (statuses as of 10/11/2023) Resolved Problems Problem Noted Date Diagnosed Date Resolved Date History of mechanical aortic valve replacement 02/13/2019 03/08/2019 Acute bacterial conjunctivitis of left eye 02/12/2019 03/08/2019 Supratherapeutic INR 02/07/2019 019 Aortic valve disorder 08/10/20012018 Cox catheter in place 06/2019 documented as of this encounter (statuses as of 10/11/2023) Social History Tobacco Use Types Packs/Day Years [...] 9:20 AM EST Laboratory Lab Mobile Phlebotomy [facility] [address] [place] [address] [facility] Mobile Home Draw [address] [place] [address] 10/21/2023 6:00 AM EST Anticoagulation Pharmacy Call Center [address] [place] [address] [facility] 58 60 [facility] [place] [address] 01/11/2024 1:30 PM EDT Office Visit Cardiology [address] [place] [address] Tam Yeung PA-C [address] [facility] [place] [address] 01/18/2024 2:00 PM EDT Office Visit Urology, [facility] [address] [facility] [place] [address] [facility]anue[facility] MD [facility] [address] [place] [phone] Health Maintenance Due Date Last Done Comments [...] Not on filedocumented as of this encounter Procedures Procedure Name Priority Date/Time Associated Diagnosis Comments OUTSIDE LAB RESULTS 10/07/2023 documented in this encounter Results * OUTSIDE LAB RESULTS (10/07/2023) 10/07/2023 No Physician Data Unknown LABORATORY documented in this encounter Advance Directives Latest Code Status on File Code Status Date Activated Date Inactivated Comments Full Code 02/07/2019 10:53 AM 02/13/2019 11:40 PM This order reflects the patients wishes and were consensually agreed upon. Question Answer Comments Discussion of Advance Directives occurred with: Patient Does the patient have a Living Will? No Does the patient have Health Care Power of Rn Oncology Clinical? No Care Teams Vice President Global Digital Marketing Relationship Specialty Start Date End Date Julia Bravo DO [address] [facility] 2 [place] [address] PCP - General Family Medicine 11/05/22 documented as of this encounter
--- OUTSIDE RECORDS SUMMARY | 2023-11-19 01:13 | External Medical Summary ---
Author Name Unknown Address Unknown Organization [facility] [address] [place] [address] Laboratory Report Ordering Provider Test Date Status HANH WILLIAMSON 10/20/2023 11:07:00 Final Standing order for pt/inr. < br/>Please draw pt/inr every 1 to 4 weeks as requested
Results to [facility] Anticoagulation [facility]

Warfarin Therapy
INR: 2.0-3.0 conventional anticoagulation
INR: 2.5-3.5 high intensity anticoagulation Observation Date Value Abnormality Reference (Units ) Status PT 10/20/2023 11:07:00 20.1 Above high normal 11 .6-15.2 (seconds) Final INR 10/20/2023 11:07:00 1.7 Above high normal 0. 8-1.2 Final Performing Location [facility] [address] [place] [address]
--- OUTSIDE RECORDS SUMMARY | 2023-11-19 01:13 | External Medical Summary | Summary of Care ---
Author Name Unknown Organization [facility] Address [address] [place] [address] Phone [phone] Care Team Providers Care Credit Administrator Name Role Phone LennyJulia wright DO Primary Care Provider +1- [phone] Reason for Visit * Reason Comments Dosage Adjustment Via Phone (anticoag Cl inic) Encounter Details Date Type Department Care Team (Latest Contact Info) Description 10/21/2023 6:00 AM [facility] Anticoagulation Pharmacy Call Center [address] [place] [address] [facility] [address] [place] [address] S/P aortic valve replacement with metallic valve* Allergies No known active allergiesdocumented as of this encounter (statuses as of 10/21/2023) Medications Medication Sig Dispensed Refills Start Date [...] AVR (aortic valve replacement),PAF (paroxysmal atrial fibrillation) ([facility]) Take 0.5 Tablets by mouth in the morning. 45 Tablet 3 07/27/2023 Active documented as of this encounter (statuses as of 10/21/2023) Active Problems Problem Noted Date Diagnosed Date RLS (restless legs syndrome) 03/14/2019 Dyslipidemia, goal LDL below 70 03/08/2019 Gastroesophageal reflux disease without esophagi tis 03/08/2019 Slow transit constipation 03/08/2019 History of subarachnoid hemorrhage 03/08/2019 Left hemiparesis 02/14/2019 Nontraumatic subcortical hemorrhage of cerebral hemisphere 02/07/2019 S/P aortic valve replacement with metallic valve 08/10/2001 HTN, goal below 140/90 08/10/2001 custodial current use of anticoagulant therapy 1 Overview: ICD-10 update of inactive term Hearing loss BPH with obstruction/lower urinary tract symptom s documented as of this encounter (statuses as of 10/21/2023) Resolved Problems Problem Noted Date Diagnosed Date Resolved Date History of mechanical aortic valve replacement 02/13/2019 03/08/2019 Acute bacterial conjunctivitis of left eye 02/12/2019 03/08/2019 Supratherapeutic INR 02/07/2019 019 Aortic valve disorder 08/10/20012018 Cox catheter in place 06/2019 documented as of this encounter (statuses as of 10/21/2023) Social History Tobacco Use Types Packs/Day Years [...] as of this encounter Progress Notes * Verónica Petersen CPhT - 10/21/2023 8:41 AM EST Contacts Type Contact Phone/Fax 10/21/2023 08:29 AM EST Phone (Outgoing) MARY BANSAL (Emergency Contact) [phone] Subjective Patient Findings Negatives: Signs/symptoms of bleeding, Change in health, Change in activity, Upcoming invasive procedure, Missed doses, Extra doses, Change in medications, Change in diet/appetite, Bruising Advised patient to contact Anticoagulation Clinic if any unusual bruising or bleeding, recent illness, changes in medication, or questions/concerns. PT/INR results, Coumadin dose instructions, and next PT/INR date communicated as noted by Pharmacist: Yes Verónica Petersen CPhT 10/21/2023, 8:41 AM * Verónica Stanley [facility] - 10/21/2023 7:57 AM EST Images from the original note were not included. Coumadin Clinic (region specific) Objective Current Warfarin Dose As of 10/21/2023 Warfarin maintenance plan: 5 mg (5 mg x 1) every Mon, Wed, Fri; 2.5 mg (5 mg x 0.5) all other days INR Result As of 10/21/2023 INR goal: 2.0-2.5 INR used for dosin.7 (10/20/2023) Assessment & Plan Warfarin Plan As of 10/21/2023 Full warfarin instructions: 10/21: 5 mg; Otherwise 5 mg every Mon, Wed, Fri; 2.5 mg all other days Next INR check: 11/03/2023 Repeat PT/INR in 2 week(s) Weekly dose: not changed Additional Dosing Information: Description [employer] to contact patient with dose instructions as noted. Verónica Stanley RPh 10/21/2023, 7:58 AM documented in this encounter Plan of Treatment Upcoming Encounters Date Type Department Care Team (Late st Contact Info) Description 11/04/2023 6:00 AM EST Anticoagulation Pharmacy Call Center [address] [place] [address] [facility] 58 60 [facility] [place] [address] 01/11/2024 1:30 PM EDT Office Visit Cardiology [address] [place] [address] Tam Yeung, PA-C [address] [place] [address] 01/18/2024 2:00 PM EDT Office Visit Urology, [facility] [address] [place] [address] Shawn Villanueva MD [address] [place] [address] Health Maintenance Due Date Last Done Comments [...] the patient have Health Care Power of Morning Show Producer? No Care Teams Credit Administrator Relationship Specialty Start Date End Date Julia Bravo DO [address] [facility] 2 [place] [address] PCP - General Family Medicine 11/05/22 documented as of this encounter
[2023-11-19 02:54] LABS: ANTI-Xa, UFH(UnfractionatedHep 0.51 IU/ml (0.3-0.7)
[2023-11-19] MEDS: SODIUM CHLORIDE 0.9% 500 ML IV SCH ×6 (03:08→19:50)
[2023-11-19] MEDS: ROSUVASTATIN CALCIUM 20 MG TAB PO SCH (08:19)
[2023-11-19] MEDS: CEROVITE ADV FORMULA TAB PO SCH (08:20)
[2023-11-19] MEDS: DOCUSATE SODIUM 100 MG CAP PO SCH ×2 (08:20→20:01)
[2023-11-19] MEDS: FINASTERIDE 5 MG TAB PO SCH (08:20)
[2023-11-19] MEDS ORDERED: METOPROLOL SUCC 25MG EXT REL TAB PO SCH (09:00)
[2023-11-19 09:22] LABS: Basophils # (auto) 0.04 K/uL (0.00-0.20); Basophils % (auto) 0.5 %; Eosinophils # (auto) 0.23 K/uL (0.00-0.50); Eosinophils % (auto) 3.1 %; Hematocrit (blood only) 36.3 % (42.0-52.0); Hemoglobin 11.4 g/dl (14.0-18.0); Immature Granulocytes # (auto) 0.02 K/uL (0.01-0.20); Immature Granulocytes % (auto) 0.3 %; Lymphocytes % (auto) 31.2 %; Mean Corpuscular Hemoglobin 29.8 pg (25.0-34.0); Mean Corpuscular Hgb Conc 31.4 g/dL (32.0-36.0); Mean Corpuscular Volume 94.8 fL (80.0-100.0); Mean Platelet Volume 13.5 fL (9.4-12.4); Monocytes # (auto) 0.56 K/uL (0.11-0.59); Monocytes % (auto) 7.6 %; Neutrophils # (auto) 4.22 K/uL (1.40-6.50); Neutrophils % (auto) 57.3 %; Platelet Count 127 K/uL (130-400); RDW Standard Deviation 52.3 fL (36.4-46.3); Red Blood Count 3.83 M/uL (4.70-6.10); White Blood Count 7.37 K/ul (4.8-10.8)
[2023-11-19 09:24] LABS: INR 1.9 (0.9-1.1); Prothrombin Time 20.2 Seconds (9.0-12.0)
[2023-11-19 09:31] LABS: BUN Creatinine Ratio 18.8 (10-20); Calcium 7.7 mg/dl (8.6-10.3); Creatinine Clr Calc Pharmacy 55.4 ml/min; Est GFR (African American) 83.8 ml/min; Est GFR (Non-African American) 72.3 ml/min
--- NOTE | 2023-11-19 11:08 | Cardiology Consultation ---
Date of Consultation November 19, 2023 Assessment & Plan (1) Paroxysmal atrial flutter: (2) PAF (paroxysmal atrial fibrillation): (3) H/O: CVA (cerebrovascular accident): (4) H/O mechanical aortic valve replacement: (5) Chronic kidney disease, stage 3 (moderate): (6) Left hemiparesis: (7) History of subarachnoid hemorrhage: (8) Hypertension: (9) Hyperlipidemia: Plan Paroxysmal flutter/atrial fibrillation. Asymptomatic. [id number] 6 points with patient prescribed chronic Coumadin anticoagulation secondary to a MECHANICAL valve in the aortic position. Recommend titration of Toprol XL to 50 mg/day. Outpatient Zio monitor. [place] antiarrhythmic therapy (amiodarone) for symptomatic PAF. History of severe aortic valve stenosis status post AVR with a Justyna Shiley MECHANICAL aortic valve (Serial Number [id number]), October 16, 1985. 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 Recommend IV heparin until INR therapeutic. Moderately enlarged aortic root and proximal ascending aorta. Continue conservative medical management. Hypertension. Well controlled. Dyslipidemia. LDL 29 mg/dL on 08/28/2023. Continue rosuvastatin 40 mg/day. Abnormal CBC, low haptoglobin, suspected hemolysis from the mechanical valve. Continue Folic Acid 1 mg/day. Stage 3 chronic kidney disease. Supervising Physician Co-Signing Physician Notes 82-year-old male with complex cardiovascular history noted above presented to the emergency department per the direction of his physical therapist due to elevated heart rate. In the ER, ECG demonstrating atrial flutter with variable AV block and rapid ventricular response. He was treated with IV diltiazem and additional oral metoprolol. Patient converted to sinus rhythm last evening at approximately 2 AM. Denies palpitations, lightheadedness, or dizziness. Unaware of his elevated heart rate yesterday. Denies chest pain or unusual shortness of breath. PE: VSS. Gen: NAD, AAOx3. Heart: Regular rhythm, 2/6 systolic ejection murmur with a crisp S2 click. Lungs: Clear bilateral, no rales, rhonchi, wheeze. Abdomen: Soft, nontender, no rebound or guarding. Extremities: No edema. A/P: Agree with above PA-C history, physical exam, assessment and plan. Patient converted to sinus rhythm overnight. Titrate metoprolol succinate to 50 mg daily (outpatient dose 12.5 mg daily). Continue IV heparin until INR greater than 2.0. 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 History of Present Illness Reason for Consultation: Atrial fibrillation with a rapid ventricular response Requesting Physician: Dr. Ferdinand Benitez Attending Physician: Dr. Doris Clemens MD History of Present Illness Mr. Jarrett Bansal is a very pleasant 82-year-old male who presented to the [facility] ER on November 18, 2023. The patient notes being at home participating in physical therapy. He notes that two therapists came yesterday instead of one due to the pending weather. After partaking in the first round of therapy the second therapist checked his via pulse oximeter and observed an elevated reading leading to recommendation for ER evaluation. Patient completely asymptomatic. EKG on presentation revealed probable atrial flutter with a ventricular rate of 139 bpm. 20 mg of IV Cardizem was administered. A second EKG revealed atrial flutter variable AV block, ventricular rate of 105 bpm. INR was notably subtherapeutic at 1.7 for which IV heparin was initiated. On admission the patient was given 12.5 mg of Lopressor and his home dose of metoprolol succinate was increased to 25 mg/day. Continuous grain unloader machine reveals patient converted back to sinus rhythm at 02:04 on November 19, 2023. Current rhythm is sinus with occasional PVCs, heart rates predominantly in the 80s and 90s. Patient without complaint this morning. He specifically denies palpitations. No chest pain. No shortness of breath. Notes getting stronger in therapy. No fevers. No chills. No night sweats. No orthopnea. No PND. No significant lower extremity peripheral edema. No dizziness or syncope. No melena or hematochezia. Problem list: Severe aortic valve stenosis status post AVR with a Justyna Shiley MECHANICAL aortic valve (Serial Number [id number]) on October 16, 1985, by Dr. 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 Moderately enlarged aortic root and proximal ascending aorta Hypertension Dyslipidemia Abnormal CBC, low haptoglobin, suspected hemolysis from the mechanical valve Stage 3 chronic kidney disease BPH with urinary obstruction GERD RLS Family History: Noncontributory Social History: to Mary x 59 years in April 2023. Former smoker, quit in 1969. Former smokeless tobacco user. No significant alcohol Allergies Allergy/AdvReac Type Severity Reaction Status Date / Time No Known Allergies Allergy Verified 11/18/23 17:14 Home Medications Medication Instructions Recorded Confirmed Type finasteride 5 mg tablet 5 mg PO QAM #90 tabs 07/22/23 11/18/23 Rx metoprolol succinate 25 mg 12.5 mg PO QAM 08/27/23 11/18/23 History tablet,extended release 24 hr tamsulosin 0.4 mg capsule 0.4 mg PO HS 10/07/23 11/18/23 History rosuvastatin 40 mg tablet 40 mg PO DAILY #90 tabs 10/18/23 11/18/23 Rx docusate sodium 100 mg capsule 100 mg PO BID #180 caps 10/27/23 11/18/23 Rx warfarin 5 mg tablet See Rx Instructions .Route 11/15/23 11/18/23 Rx .COMPLEX #90 tabs folic acid 1 mg tablet 1 mg PO HS 11/18/23 11/18/23 History vit C 250 mg-vit E 90 mg-zinc 40 1 tab PO BID 11/18/23 11/18/23 History mg-copper 1 [id number] capsule (PreserVision AREDS-2) Patient History Medical History Rectal bleeding C. difficile colitis Carotid stenosis, left BPH (benign prostatic hyperplasia) Bacteremia (07/2023) Sepsis due to urinary tract infection (07/2023) THIAGO (acute kidney injury) H/O: CVA (cerebrovascular accident) (01/2019) Chronic kidney disease, stage 3 (moderate) Left hemiparesis History of subarachnoid hemorrhage (01/2019) RLS (restless legs syndrome) GERD (gastroesophageal reflux disease) Hyperlipidemia Benign prostatic hyperplasia with urinary obstruction Hypertension Rupture of left long head biceps tendon Surgical History S/P tonsillectomy H/O mechanical aortic valve replacement (1984) Family History Brother , Twin brother Myocardial infarction Denies family history of Ovarian cancer Prostate cancer Breast cancer Colorectal cancer Social History Smoking Status: Former smoker Tobacco Type: Cigarettes Age Quit Using Tobacco: 30; Second Hand Exposure: No; Do You Dip or Chew Tobacco: No; Hx Alcohol Use: No Hx Substance Use: No Preferred Language: Syriac Communication Ability: Effective Visual Impairment: No Limitations Hearing Ability: Use of Hearing Aid Deputy Brand Inspector Required: No Beliefs That Will Affect Care: None marital status: Current Living Situation: Spouse Current Living Situation Comment: at home current occupational status: retired Feels Safe at Home: Yes Safety Concerns: Feels Safe At This Time Diet: regular Diet Comment: regular caffeine: Yes during the past year weight has: remained stable Dental Care, Regularly: No Physical Activity Frequency: Other Physical Activity Frequency Comment: PHYSICAL THERAPY DUE TO STROKE Seatbelt Use: always Sunscreen Use: Yes Assistive Devices: Hospital Bed, Walker and Wheelchair Review of Systems Review of Systems: Complete Review of Systems is as stated above, negative, or noncontributory. Physical Exam Physical Exam: General: No acute distress. Hard of hearing. Head: Normocephalic. Atraumatic. Eyes: Conjunctiva are pink and non-injected, sclera clear Neck: No carotid bruits. Normal JVP. Chest: Normal shape and normal respiratory effort Lungs: Clear to auscultation Cardiac: Irregular at 90 bpm. Grade II systolic murmur at the LLSB. No gallop. No rub Abdomen: +BS. Soft. Nontender. No bruits. No masses. Extremities: Minimal distal left greater than right lower extremity edema. No cyanosis. No clubbing. Pulses intact 2+/4 Neuro: Left sided hemiparesis Results & Data Vital Signs (Past 12 Hours) Vital Signs Temp Pulse Pulse Resp BP Pulse Ox O2 Del Method 11/19/23 11:06 36.4 C L 89 20 115/72 96 Room Air 11/19/23 09:00 79 11/19/23 07:07 36.3 C L 91 H 19 102/70 94 Room Air 11/19/23 03:51 36.5 C 93 H 20 112/76 94 Room Air 11/19/23 00:30 109 H 11/18/23 23:17 37.4 C 112 H 20 140/81 95 Room Air Laboratory Results Cardiac Enzymes 11/18/23 Range/Units 14:45 Troponin I High Sens 18.6 (0-20) pg/ml Coagulation 11/18/23 11/19/23 Range/Units 14:45 06:43 PT 17.9 H 20.2 H (9.0-12.0) Seconds APTT 37 H (21-31) Seconds CBC 11/18/23 11/19/23 Range/Units 14:45 06:43 WBC 8.90 7.37 (4.8-10.8) K/ul RBC 4.34 L 3.83 L (4.70-6.10) M/uL Hgb 13.3 L 11.4 L (14.0-18.0) g/dl Hct 40.8 L 36.3 L (42.0-52.0) % Plt Count 176 127 L (130-400) K/uL Neut # (Auto) 4.83 4.22 (1.40-6.50) K/uL Lymph # (Auto) 2.94 2.30 (1.20-3.40) K/uL [place] # (Auto) 0.72 H 0.56 (0.11-0.59) K/uL Eos # (Auto) 0.32 0.23 (0.00-0.50) K/uL Baso # (Auto) 0.07 0.04 (0.00-0.20) K/uL Comprehensive Metabolic Panel 11/18/23 11/19/23 Range/Units 14:45 06:43 Sodium TNP 140 Potassium TNP 4.0 Chloride 109 H 112 H (98-107) mmol/L Carbon Dioxide 22 23 (21-32) mmol/L BUN 23 18 (6-23) mg/dl Creatinine 1.18 0.96 (0.6-1.4) mg/dl Glucose 107 H 84 (70-99(Fasting)) mg/dl Calcium 8.4 L 7.7 L (8.6-10.3) mg/dl Intake and Output 11/18/23 11/19/23 11/19/23 22:59 06:59 14:59 Intake Total 500 / 8001.495 0521.383 / 1578.383 563.683 / 563.683 Output Total 275 / 725 450 / 725 Balance 225 / 853.383 628.383 / 853.383 563.683 / 563.683 Intake: IV 500 / 3691.974 9336.383 / 1578.383 563.683 / 563.683 Heparin Sodium/Dextrose 25,000 126.3 / 126.3 74.1 / 74.1 units In 500 ml @ 900 UNITS/HR 18 mls/hr IV .Q24H [facility] Rx#: [id number] Sodium Chloride 0.9% 500 ml @ 500 / 1452.083 952.083 / 1452.083 489.583 / 489.583 125 mls/hr IV .Q4H [facility]YSON Rx#: [id number] Output: Urine 275 / 725 450 / 725 Other: Weight 76.839 kg 77.564 kg Weight Measurement Method [facility] (5) Chronic kidney disease, stage 3 (moderate) Chronic kidney disease stage 3 subtype: unspecified whether 3a or 3b Qualified Code(s): N18.30 - Chronic kidney disease, stage 3 unspecified (8) Hypertension Hypertension type: primary hypertension Qualified Code(s): I10 - Essential (primary) hypertension (9) Hyperlipidemia Hyperlipidemia type: pure hypercholesterolemia Qualified Code(s): E78.00 - Pure hypercholesterolemia, unspecified
--- NOTE | 2023-11-19 12:39 | Hospitalist Progress Note ---
Date of Service November 19, 2023 Assessment & Plan (1) PAF (paroxysmal atrial fibrillation): Plan: Rate is now under better control At home on metoprolol succinate 12.5 mg uptitrated to 25 mg and further titrated to 50 mg daily Patient is on warfarin, goal INR 2.53.5 due to mechanical valve INR 1.7, warfarin given and patient started on heparin until within therapeutic range Continue INR checks daily Cardiology consulted Last echo 07/2023 with hyperdynamic EF greater than 70%, mechanical AV not well-visualized at that time, mild pulmonary hypertension noted. High sensitive troponin normal, no signs of ACS or demand ischemia on admission (2) Subtherapeutic international normalized ratio (INR): Plan: With history of mechanical heart valve has been on warfarin however INR was s ubtherapeutic Continue bridging with heparin infusion, while on Coumadin Monitor INR (3) H/O mechanical aortic valve replacement: Plan: -goal INR 2.5-3.5 -warfarin continued (4) BPH (benign prostatic hyperplasia): Plan: BPH Continue Flomax (5) Left hemiparesis: Plan: Left hemiparesis Residual due to CVA in 2019 No left upper extremity labs No new strokelike symptoms (6) History of subarachnoid hemorrhage: Plan: - no new deficits (7) Hyperlipidemia: Plan: Hyperlipidemia Continue rosuvastatin (8) Hypertension: Plan: Hypertension Continue metoprolol (9) Chronic kidney disease, stage 3 (moderate): Plan: CKD 3 Creatinine baseline approximately 1.031.3, admitting creatinine 1.18. Renally dose medications as needed BMP daily No THIAGO in admission (10) Paroxysmal atrial flutter: Plan Disposition: PCU for A-fib with RVR DVT prophylaxis: Warfarin, heparinize until therapeutic CODE STATUS: DNR/DNI Diet: Clears, n.p.o. at midnight pending cardiology/ablation eval Admission and Anticipated Discharge Date Admission Date: November 18, 2023 Subjective Patient seen and examined today, no new complaints, no chest pain or shortness of breath. Review of Systems Review of Systems: All systems reviewed are negative, apart from the ones contained in the history. Physical Exam Physical Exam: The patient is awake, alert and oriented 3, well developed and well nourished, normocephalic and atraumatic, lying in bed and in no acute distress. HEENT--PERRL, EOMI, mucous membranes and oropharynx mildly dry Neck--supple. No JVD. No bruits. Thyroid normal, trachea midline, no adenopathy. Heart--normal S1 and S2. No murmurs, rubs or gallops. Lungs--clear bilaterally, no respiratory distress, no accessory muscle use. Abdomen--normal bowel sounds and soft. Extremities--no cyanosis or clubbing. No edema. Dermatologic--normal skin turgor, normal color, no abnormal lymph nodes, no rash. Neurologic--cranial nerves II through XII grossly intact. Rheumatologic--normal range of motion. Psychiatric--normal affect. Results & Data Results & Data Vital Signs (Past 12 Hours) Vital Signs Temp Pulse Pulse Resp BP Pulse Ox O2 Del Method 11/19/23 11:06 97.5 F L 89 20 115/72 96 Room Air 11/19/23 09:00 79 11/19/23 07:07 97.3 F L 91 H 19 102/70 94 Room Air 11/19/23 03:51 97.7 F 93 H 20 112/76 94 Room Air PG Care Time/CCT Total # of Minutes Spent Total Time Spent with Patient: Total time spent is greater than 50% in coordination of care (as documented) at patient's floor/unit and/or counseling patient: Coding Level of Care Code 33183 SUB INP/OBS CARE 2/35MIN Diagnoses PAF (paroxysmal atrial fibrillation) I48.0 Subtherapeutic international normalized ratio (INR) R79.1 H/O mechanical aortic valve replacement Z95.2 BPH (benign prostatic hyperplasia) N40.0 Left hemiparesis G81.94 History of subarachnoid hemorrhage Z86.79 Hyperlipidemia E78.5 Hypertension I10 Chronic kidney disease, stage 3 (moderate) N18.30 Paroxysmal atrial flutter I48.92 Time Spent (min) 35
[2023-11-19] MEDS ORDERED: WARFARIN SOD 5 MG TAB PO SCH (16:00)
[2023-11-19] MEDS: HEPARIN SODIUM/DEXTROSE 25,000 UNITS/500 ML BAG IV SCH (19:52)
[2023-11-19] MEDS: TAMSULOSIN HCL 0.4 MG CAP PO SCH (20:01)
[2023-11-19] MEDS: FOLIC ACID 1 MG TAB PO SCH (20:01)
[2023-11-20] MEDS: SODIUM CHLORIDE 0.9% 500 ML IV SCH ×4 (00:15→13:28)
[2023-11-20 02:10] LABS: Basophils # (auto) 0.04 K/uL (0.00-0.20); Basophils % (auto) 0.5 %; Eosinophils # (auto) 0.34 K/uL (0.00-0.50); Hematocrit (blood only) 33.5 % (42.0-52.0); Hemoglobin 10.5 g/dl (14.0-18.0); Immature Granulocytes # (auto) 0.02 K/uL (0.01-0.20); Immature Granulocytes % (auto) 0.2 %; Lymphocytes # (auto) 2.39 K/uL (1.20-3.40); Lymphocytes % (auto) 28.4 %; Mean Corpuscular Hemoglobin 30.2 pg (25.0-34.0); Mean Corpuscular Hgb Conc 31.3 g/dL (32.0-36.0); Mean Corpuscular Volume 96.3 fL (80.0-100.0); Mean Platelet Volume 12.2 fL (9.4-12.4); Monocytes # (auto) 0.61 K/uL (0.11-0.59); Monocytes % (auto) 7.2 %; Neutrophils # (auto) 5.02 K/uL (1.40-6.50); Neutrophils % (auto) 59.7 %; Platelet Count 129 K/uL (130-400); RDW Coefficient of Variation 15.3 % (11.5-14.5); RDW Standard Deviation 53.9 fL (36.4-46.3); Red Blood Count 3.48 M/uL (4.70-6.10); White Blood Count 8.42 K/ul (4.8-10.8)
[2023-11-20 02:23] LABS: BUN Creatinine Ratio 17.7 (10-20); Calcium 7.6 mg/dl (8.6-10.3); Creatinine Clr Calc Pharmacy 42.9 ml/min; Est GFR (African American) 61.5 ml/min; Est GFR (Non-African American) 53.1 ml/min
[2023-11-20 02:48] LABS: ANTI-Xa, UFH(UnfractionatedHep 0.33 IU/ml (0.3-0.7); INR 2.4 (0.9-1.1)
--- NOTE | 2023-11-20 06:39 | Electrocardiogram Report ---
Test Reason : Blood Pressure : / mmHG Vent. Rate : 139 BPM Atrial Rate : 000 BPM P-R Int : 000 ms QRS Dur : 122 ms QT Int : 368 ms P-R-T Axes : 000 -33 -39 degrees QTc Int : 559 ms Possible Atrial flutter Left axis deviation Non-specific intra-ventricular conduction delay Minimal voltage criteria for LVH, may be normal variant ( [place] product ) Abnormal ECG When compared with ECG of 10-SEP-2023 04:19, No significant change Confirmed by Bennett Barrera ([id number]) on 11/20/2023 6:39:10 AM Referred By: REFERRED SELF Confirmed By:Bennett Barrera
--- NOTE | 2023-11-20 06:40 | Electrocardiogram Report ---
Test Reason : Blood Pressure : / mmHG Vent. Rate : 105 BPM Atrial Rate : 278 BPM P-R Int : 000 ms QRS Dur : 096 ms QT Int : 182 ms P-R-T Axes : 182 -33 151 degrees QTc Int : 240 ms Atrial flutter with variable A-V block Left axis deviation Left ventricular hypertrophy with repolarization abnormality ( R in aVL ) Abnormal ECG When compared with ECG of 18-NOV-2023 14:48, No significant change Confirmed by Bennett Barrera ([id number]) on 11/20/2023 6:40:14 AM Referred By: REFERRED SELF Confirmed By:Bennett Barrera
--- NOTE | 2023-11-20 06:42 | Electrocardiogram Report ---
Test Reason : Blood Pressure : / mmHG Vent. Rate : 096 BPM Atrial Rate : 096 BPM P-R Int : 184 ms QRS Dur : 102 ms QT Int : 388 ms P-R-T Axes : 118 -26 081 degrees QTc Int : 490 ms Normal sinus rhythm Minimal voltage criteria for LVH, may be normal variant Nonspecific ST and T wave abnormality Prolonged QT Abnormal ECG When compared with ECG of 18-NOV-2023 14:54, Sinus rhythm has replaced Atrial flutter Confirmed by Bennett Barrera ([id number]) on 11/20/2023 6:42:15 AM Referred By: REFERRED SELF Confirmed By:Bennett Barrera
[2023-11-20] MEDS: FINASTERIDE 5 MG TAB PO SCH (07:43)
[2023-11-20] MEDS: ROSUVASTATIN CALCIUM 20 MG TAB PO SCH (07:43)
[2023-11-20] MEDS: CEROVITE ADV FORMULA TAB PO SCH (07:43)
[2023-11-20] MEDS: DOCUSATE SODIUM 100 MG CAP PO SCH (07:43)
[2023-11-20] MEDS ORDERED: METOPROLOL SUCC 50MG EXT REL TAB PO SCH (09:00)
--- NOTE | 2023-11-20 12:17 | Discharge Summary ---
Date of Service November 20, 2023 Admission HPI Per Admitting Provider Jarrett is an 82-year-old male with a past medical history of mechanical aortic valve replacement, CKD 3, BPH with LUTS, paroxysmal A-fib, and warfarin anticoagulation with goal INR 2.53.5 due to mechanical valve who presents with an episode of A-fib RVR. Patient follows with [facility] cardiology. Patient got 1 dose of Cardizem 20 mg IV and converted to a normal sinus rhythm. [facility] cardiology did review and suspected that patient had a morphology more consistent with a flutter than A-fib and recommended patient be admitted, heparinized until INR within goal range, and to have cardiology consultation for morning evaluation. Pt reports in Nov he had a UTI c/b C diff from antibiotics. After that was treated with pills he was doing well up until was working on PT with his home health therapist when his heart rate was going very high and they recommended he be seen in the ER. Denies chest pain, denies chest pressure No shortness of breath Reports had a slight fever 1 week ago with congestion which 'cleared out ok' since then no fevers or chills. No dysuria. Does not feel like he has a UTI currently. No cough. No sputum production. No abdominal pain. Denies palpitations Has not taken warfarin today. "Lady from the drug department has been changing it. Christy keeps an eye on it. I wish I could tell what I take. I take a full 5mg and a half tablet some days" Medical History: Reviewed Medications: Reviewed Surgical History: Reviewed Family history: Reviewed Allergies: Reviewed Social History: Reviewed Code Status: DNR/DNI Principal Diagnosis Subtherapeutic INR Discharge Exam The patient is awake, alert and oriented 3, well developed and well nourished, normocephalic and atraumatic, lying in bed and in no acute distress. HEENT--PERRL, EOMI, mucous membranes and oropharynx mildly dry Neck--supple. No JVD. No bruits. Thyroid normal, trachea midline, no adenopathy. Heart--normal S1 and S2. No murmurs, rubs or gallops. Lungs--clear bilaterally, no respiratory distress, no accessory muscle use. Abdomen--normal bowel sounds and soft. Extremities--no cyanosis or clubbing. No edema. Dermatologic--normal skin turgor, normal color, no abnormal lymph nodes, no rash. Neurologic--cranial nerves II through XII grossly intact. Rheumatologic--normal range of motion. Psychiatric--normal affect. Discharge Data Allergies Allergy/AdvReac Type Severity Reaction Status Date / Time No Known Allergies Allergy Verified 11/18/23 17:14 Consultations 11/18/23 17:45 Consult Cardiology Routine ED Decision to Admit Stat Hospital Course (1) PAF (paroxysmal atrial fibrillation): Rate is now under better control At home on metoprolol succinate 12.5 mg uptitrated to 25 mg and further titrated to 50 mg daily Patient is on warfarin, goal INR 2.53.5 due to mechanical valve INR 2.4 today, warfarin continued. Heparin was discontinued Continue INR checks daily Cardiology consulted Last echo 07/2023 with hyperdynamic EF greater than 70%, mechanical AV not well-visualized at that time, mild pulmonary hypertension noted. High sensitive troponin normal, no signs of ACS or demand ischemia on admission (2) Subtherapeutic international normalized ratio (INR): Now resolved INR 2.4 (3) H/O mechanical aortic valve replacement: -goal INR 2.5-3.5 -warfarin continued (4) BPH (benign prostatic hyperplasia): BPH Continue Flomax (5) Left hemiparesis: Left hemiparesis Residual due to CVA in 2019 No left upper extremity labs No new strokelike symptoms (6) History of subarachnoid hemorrhage: - no new deficits (7) Hyperlipidemia: Hyperlipidemia Continue rosuvastatin (8) Hypertension: Hypertension Continue metoprolol (9) Chronic kidney disease, stage 3 (moderate): CKD 3 Creatinine baseline approximately 1.031.3, admitting creatinine 1.18. Renally dose medications as needed BMP daily No THIAGO in admission (10) Paroxysmal atrial flutter: Plan Disposition: PCU for A-fib with RVR DVT prophylaxis: Warfarin, heparinize until therapeutic CODE STATUS: DNR/DNI Diet: Clears, n.p.o. at midnight pending cardiology/ablation eval Total Time Total Time Spent Total Time Spent (In Minutes): 35 Discharge Plan Discharge Items Patient Disposition: Home - Home Health Services Reason For Visit: AFIB/FLUTTER W RVR Discharge Diagnosis: afib, subtherapeutic INR Activity: Resume your previous activity Non-emergency contact: Primary Care Provider Call non-emergency contact if: you have any medication questions Follow-up/Referrals: Julia Bravo DO [Primary Care Provider] - 12/02/23 9:20 am Diet: Regular Addtl Attending Provider Instructions: please make appointment to follow up with your regular doctors Pending Studies at Discharge: No Stand-Alone Forms: My [facility], Smoking Cessation Medications and DC Order Prescriptions: New metoprolol succinate 50 mg Tablet Extended Release 24 Hr 50 mg PO QAM 30 Days Qty: 30 0RF Continued rosuvastatin 40 mg tablet 40 mg PO DAILY Qty: 90 1RF docusate sodium 100 mg capsule 100 mg PO BID Qty: 180 1RF warfarin 5 mg tablet See Rx Instructions .ROUTE .COMPLEX Qty: 90 1RF Rx Instructions: TAKES 5 MG ON MON, WED, & FRI., THEN 2.5 MG ON SUN, TUES, THURS, & SAT. EVENINGS finasteride 5 mg tablet 5 mg PO QAM Qty: 90 1RF tamsulosin 0.4 mg capsule 0.4 mg PO HS PreserVision AREDS-2 250-90-40-1 mg Capsule 1 tab PO BID folic acid 1 mg tablet 1 mg PO HS Discontinued metoprolol succinate 25 mg tablet extended release 24 hr 12.5 mg PO QAM Discharge Orders: Discharge Order (Routine); Ordered 11/20/23 Ordered By: Doris Clemens Admission Data Admit Date/Time: 11/18/23 18:21 Attending Provider: Doris Clemens Admit Provider: Gunner Covarrubias Primary Care Provider: Julia Bravo Other Providers: Gunner Covarrubias; Shaun Elkins; Naveen Price [facility] Coding Level of Care Code 45058 INP/OBS DISCH >30 MIN Diagnoses PAF (paroxysmal atrial fibrillation) I48.0 Subtherapeutic international normalized ratio (INR) R79.1 H/O mechanical aortic valve replacement Z95.2 BPH (benign prostatic hyperplasia) N40.0 Left hemiparesis G81.94 History of subarachnoid hemorrhage Z86.79 Pure hypercholesterolemia E78.00 Hyperlipidemia type: pure hypercholesterolemia Primary hypertension I10 Hypertension type: primary hypertension Stage 3 chronic kidney disease, unspecified whether stage 3a or 3b CKD N18.30 Chronic kidney disease stage 3 subtype: unspecified whether 3a or 3b Paroxysmal atrial flutter I48.92 Time Spent (min) 35
== END 2023-11-20 14:08 | disposition home health service (06) | DRG 309 ==
LOC: ED 14:44 → SUATTDRO 18:21 → 2S 18:21